=== PATIENT | male | born 1950 | race Caucasian/White ===

== ENCOUNTER 2019-03-21 01:56 | Inpatient (IN) | payer OTHER ==
[~2019-03-21] VITALS: Ht 165.1 cm; Wt 87.8 kg
[2019-03-21] VITALS (16 sets, daily range): BP systolic 120–147; BP diastolic 64–84; PULSE 50–61; RESP 8–21; Ht 165.1 cm; Wt 87.8 kg
[2019-03-21] MEDS ORDERED: AMIODARONE 150MG/D5W BOLUS IV* STA (02:00)
[2019-03-21] MEDS ORDERED: MAGNESIUM SULFATE 2 GM/50 ML 50 ML IVPB STA (02:00)
[2019-03-21] MEDS ORDERED: AMIODARONE 900 MG in DEXTROSE 5% 482 ML IV SCH (02:00)
[2019-03-21] MEDS ORDERED: ONDANSETRON 4 MG INJ ONE (02:02)
[2019-03-21] MEDS ORDERED: LORAZEPAM 2 MG INJ ONE (02:02)
--- NOTE | 2019-03-21 02:09 | ERD ---
ER Documentation Chief Complaint Chief Complaint HPI This is a 68-year-old male with a history of ICD placement, coronary disease, wh o presents for evaluation of multiple episodes of ventricular tachycardia, in the setting of having an ICD and receiving multiple shocks. The patient denies chest pain, he feels anxious from the shocks. History is limited secondary to the acuity of his condition. ROS All systems reviewed and are negative except as per history of present illness. Allergies Allergies: Coded Allergies: No Known Allergy (Unverified , 03/21/19) Physical Exam Vitals Vital Signs Date Temp Pulse Resp B/P (MAP) Pulse Ox O2 O2 Flow FiO2 Time Delivery Rate 03/21/19 59 15 115/76 99 Nasal 05:00 (89) Cannula 03/21/19 63 17 123/80 99 Nasal 04:30 (94) Cannula 03/21/19 97.2 69 20 122/71 99 Nasal 3.0 04:19 (88) Cannula 03/21/19 70 17 123/87 100 Nasal 03:30 (99) Cannula 03/21/19 78 21 144/80 98 Nasal 02:56 (101) Cannula 03/21/19 Nasal 3 02:15 Cannula 03/21/19 98.7 89 24 142/95 98 02:00 (111) Physical Exam Const: Patient is anxious appearing, appears stated age Head: Atraumatic Eyes: Normal Conjunctiva ENT: Normal External Ears, Nose and Mouth. Neck: Full range of motion. No meningismus. Resp: Clear to auscultation bilaterally Cardio: Regular rate and rhythm, no murmurs Abd: Soft, non tender, there is a large abdominal hernia, it is nontender. Normal bowel sounds Skin: No petechiae or rashes Back: No midline or flank tenderness Ext: No cyanosis, or edema Neur: Awake and alert Psych: Normal Mood and Affect Result Diagram: 03/21/19 0200 03/21/19 0200 Results 24 hrs Laboratory Tests Test 03/21/19 02:00 White Blood Count 11.8 10^3/ul Red Blood Count 5.07 10^6/ul Hemoglobin 15.3 g/dl Hematocrit 46.8 % Mean Corpuscular Volume 92.3 fl Mean Corpuscular Hemoglobin 30.2 pg Mean Corpuscular Hemoglobin Concent 32.7 g/dl Red Cell Distribution Width 13.2 % Platelet Count 202 10^3/UL Mean Platelet Volume 10.5 fl Immature Granulocytes % 0.300 % Neutrophils % 52.9 % Lymphocytes % 31.9 % Monocytes % 10.5 % Eosinophils % 3.5 % Basophils % 0.9 % Nucleated Red Blood Cells % 0.0 /100WBC Immature Granulocytes # 0.040 10^3/ul Neutrophils # 6.2 10^3/ul Lymphocytes # 3.8 10^3/ul Monocytes # 1.2 10^3/ul Eosinophils # 0.4 10^3/ul Basophils # 0.1 10^3/ul Nucleated Red Blood Cells # 0.0 10^3/ul Prothrombin Time 15.0 Sec Prothrombin Time Ratio 1.2 INR International Normalized Ratio 1.17 Activated Partial Thromboplast Time 28.3 Sec Sodium Level 140 mmol/L Potassium Level 3.6 mmol/L Chloride Level 105 mmol/L Carbon Dioxide Level 24 mmol/L Anion Gap 11 Blood Urea Nitrogen 25 mg/dl Creatinine 1.06 mg/dl Est Glomerular Filtrat Rate mL/min > 60 mL/min Glucose Level 182 mg/dl Calcium Level 8.8 mg/dl Magnesium Level 1.6 mg/dl Total Bilirubin 0.2 mg/dl Direct Bilirubin 0.00 mg/dl Indirect Bilirubin 0.2 mg/dl Aspartate Amino Transf (AST/SGOT) 42 IU/L Alanine Aminotransferase (ALT/SGPT) 45 IU/L Alkaline Phosphatase 73 IU/L Troponin I 1.780 ng/ml B-Type Natriuretic Peptide 1200 PG/ML Total Protein 6.5 g/dl Albumin 3.7 g/dl Globulin 2.80 g/dl Albumin/Globulin Ratio 1.32 Current Medications Medications Dose Sig/Mirela Start Time Status Last (Trade) Ordered Route PRN Stop Time Admin Dose Reason Admin Amiodarone 100 ml ONCE STAT 03/21/19 DC 03/21/19 HCl IV* 02:00 02:26 (Cordarone 03/21/19 02:03 150mg/ D5W Bolus) Magnesium 50 ml @ ONCE STAT 03/21/19 DC 03/21/19 Sulfate 600 mls/hr IVPB 02:00 02:27 03/21/19 02:04 Amiodarone 500 ml @ 0 Q0M IV 03/21/19 03/21/19 HCl 900 mls/hr 02:00 02:19 mg/Dextrose Lorazepam 0.5 mg ONCE ONCE 03/21/19 DC 03/21/19 (Ativan) IV 02:30 02:17 03/21/19 02:31 Aspirin 325 mg ONCE ONCE 03/21/19 DC 03/21/19 (Aspirin) PO 03:00 03:05 03/21/19 03:02 Heparin 250 ml @ ONCE STAT 03/21/19 03/21/19 Sodium 10 mls/hr IV 03:17 04:48 (Porcine) 03/22/19 04:16 1,000 ml @ [id number] IV 03/21/19 Dextrose/Sodi 75 mls/hr 04:02 um Chloride Ondansetron 4 mg Q6H PRN 03/21/19 HCl (Zofran IV NAUSEA 04:30 Inj) AND/OR VOMITING Albuterol/ 3 ml Q2H RESP 03/21/19 Ipratropium THERAPY PRN 04:30 (Duoneb) NEB SHORTNESS OF BREATH 650 mg Q4H PRN 03/21/19 Acetaminophen CA PAIN 04:30 (Tylenol LEVEL 1-3 OR Supp) FEVER 40 mg DAILY@06 03/21/19 Pantoprazole IV 06:00 (Protonix Iv) Procedures/MDM 68-year-old male presents for evaluation of multiple shocks by his ICD. He has no chest pain, reviewed his EKG, there is no evidence of acute ST elevation [place], patient was given a bolus of amiodarone, and will be started on amiodarone drip, also given magnesium sulfate. EKG: Rate/Rhythm: Normal Sinus Rhythm QRS, ST, T-waves: No changes consistent w/ acute ischemia Impression: No evidence of ischemia or arrhythmia\ 3 AM: Patient's troponin returned greater than 1, patient was chest pain-free, I suspect this most likely related to multiple shocks that he is received, I discussed the case with the [facility], gave authorization #[id number], for patient to stay at [facility]. Patient remained he medically stable, he will be admitted to the ICU, he was started on aspirin and heparin drip for an STEMI. Patient admitted to Dr. Lane Departure Diagnosis: Primary Impression: Ventricular tachycardia Additional Impression: Non-STEMI (non-ST elevated myocardial infarction) Condition: Stable DI MICHELE MD March 21, 2019 02:09
[2019-03-21] MEDS ORDERED: LORAZEPAM 2 MG INJ IV ONE (02:30)
[2019-03-21] MEDS ORDERED: ASPIRIN 325 MG TAB PO ONE (03:00)
[2019-03-21] MEDS ORDERED: DEXTROSE 5%-0.45% NACL 1,000 ML IV SCH (04:02)
[2019-03-21] MEDS ORDERED: ONDANSETRON 4 MG INJ IV PRN (04:30)
[2019-03-21] MEDS ORDERED: ACETAMINOPHEN 650 MG SUPP PR PRN (04:30)
[2019-03-21] MEDS ORDERED: ALBUTEROL/IPRATROPIUM (NEB) 3 ML AMP NEB PRN (04:30)
[2019-03-21] MEDS: HEPARIN 25000 UNITS/250 ML 250 ML IV STA ×2 (04:48→07:09)
[2019-03-21] MEDS ORDERED: PANTOPRAZOLE 40 MG INJ IV SCH (06:00)
--- NOTE | 2019-03-21 06:05 | HP ---
Date/Time of Note Date/Time of Note DATE: 03/21/19 TIME: 06:00 Assessment/Plan VTE Prophylaxis Pharmacological prophylaxis: heparin Lines/Catheters IV Catheter Type (from Nrsg): Saline Lock Assessment/Plan Assessment/Plan 1. Ventricular fibrillation, status post ICD firing -Patient was also found to be in V-fib with a rate of 250 in the field. Shocked to sinus rhythm -Status post amiodarone ER -Heparin drip, especially given positive troponin -ICU admission -Serial troponin -2D echo -Cardiology consult -ICD Interrogation 2. Positive troponin: NSTEMI vs secondary to above -Antiplatelet, heparin drip -Serial troponin, 2D echo and cardiology consult 3. History of CAD with CABG 4. History of colon cancer in 2008: No acute issue Result Diagram: 03/21/19 0200 03/21/19 0200 Results 24hrs Laboratory Tests Test 03/21/19 02:00 White Blood Count 11.8 H Red Blood Count 5.07 Hemoglobin 15.3 Hematocrit 46.8 Mean Corpuscular Volume 92.3 Mean Corpuscular Hemoglobin 30.2 Mean Corpuscular Hemoglobin Concent 32.7 Red Cell Distribution Width 13.2 Platelet Count 202 Mean Platelet Volume 10.5 H Immature Granulocytes % 0.300 Neutrophils % 52.9 Lymphocytes % 31.9 Monocytes % 10.5 Eosinophils % 3.5 Basophils % 0.9 Nucleated Red Blood Cells % 0.0 Immature Granulocytes # 0.040 H Neutrophils # 6.2 Lymphocytes # 3.8 H Monocytes # 1.2 H Eosinophils # 0.4 Basophils # 0.1 Nucleated Red Blood Cells # 0.0 Prothrombin Time 15.0 H Prothrombin Time Ratio 1.2 INR International Normalized Ratio 1.17 Activated Partial Thromboplast Time 28.3 Sodium Level 140 Potassium Level 3.6 Chloride Level 105 Carbon Dioxide Level 24 Anion Gap 11 Blood Urea Nitrogen 25 H Creatinine 1.06 Est Glomerular Filtrat Rate mL/min > 60 Glucose Level 182 Calcium Level 8.8 Magnesium Level 1.6 L Total Bilirubin 0.2 Direct Bilirubin 0.00 Indirect Bilirubin 0.2 Aspartate Amino Transf (AST/SGOT) 42 Alanine Aminotransferase (ALT/SGPT) 45 Alkaline Phosphatase 73 Troponin I 1.780 *H B-Type Natriuretic Peptide 1200 H Total Protein 6.5 Albumin 3.7 Globulin 2.80 Albumin/Globulin Ratio 1.32 HPI/ROS Admit Date/Time Admit Date/Time Hx of Present Illness This is a 68-year-old male with a history of hypertension, CAD with CABG, colon cancer in 2008 who was brought to the ER for V-fib and after his ICD fired multiple times. He reported waking up from sleep because of the shock. Reported that his ICD fired multiple times. When EMS arrived, he was found to be in V-fib with a rate of 250 status post shock to sinus with 65bpm. at bedside stated that his ICD fired last week and was interrogated at [facility] and was told "HR was high". No new meds added. requesting cardiac cath. ICD was placed in 2004 at time of CABG. No issue since until now. When he presented to ER, vitals were stable. He is found to have a troponin of almost 1.8. He was started on heparin drip and was also given amiodarone. Currently awaiting admission to ICU. PMH/Family/Social Past Medical History Medical History: other (see hpi) Medications Current Medications Amiodarone HCl 900 mg/Dextrose 500 ml @ 0 mls/hr Q0M IV Last administered on 03/21/19at 02:19; Admin Dose 33.3 MLS/HR; Start 03/21/19 at 02:00 Heparin Sodium (Porcine) 250 ml @ 10 mls/hr ONCE STAT IV Last administered on 03/21/19at 04:48; Admin Dose 10 MLS/HR; Start 03/21/19 at 03:17; Stop 03/22/19 at 04:16 Dextrose/Sodium Chloride 1,000 ml @ 75 mls/hr [id number] IV ; Start 03/21/19 at 04:02 Ondansetron HCl (Zofran Inj) 4 mg Q6H PRN IV NAUSEA AND/OR VOMITING; Start 03/21/19 at 04:30 Albuterol/ Ipratropium (Duoneb) 3 ml Q2H RESP THERAPY PRN NEB SHORTNESS OF BREATH; Start 03/21/19 at 04:30 Acetaminophen (Tylenol Supp) 650 mg Q4H PRN MA PAIN LEVEL 1-3 OR FEVER; Start 03/21/19 at 04:30 Pantoprazole (Protonix Iv) 40 mg DAILY@06 IV ; Start 03/21/19 at 06:00 Coded Allergies: No Known Allergy (Unverified , 03/21/19) Past Surgical History Past Surgical Hx: other (see hpi) Family History Significant Family History: no pertinent family hx Social History Alcohol Use: none Smoking Status: Current every day smoker Drug Use: none Exam/Review of Systems Vital Signs Vitals Vital Signs Date Temp Pulse Resp B/P (MAP) Pulse Ox O2 O2 Flow FiO2 Time Delivery Rate 03/21/19 59 15 115/76 99 Nasal 05:00 (89) Cannula 03/21/19 97.2 3.0 04:19 Exam Constitutional: alert, oriented, well developed Head: normocephalic, atraumatic Eyes: EOMI, PERRL Respiratory: clear to auscultation Cardiovascular: regular rate and rhythm Gastrointestinal: soft Extremities: normal pulses HALEY KEARNS MD March 21, 2019 06:05
[2019-03-21] MEDS ORDERED: BISO5TAB2 PO (06:30)
[2019-03-21] MEDS ORDERED: ATORVASTATIN 80 MG TAB PO ONE (06:30)
[2019-03-21] MEDS ORDERED: LISI-313 PO (06:31)
[2019-03-21] MEDS ORDERED: CYAN500T46 PO (06:31)
[2019-03-21] MEDS ORDERED: ASPI81TA52 PO (06:32)
[2019-03-21] MEDS ORDERED: NITR0.4T39 SL (06:32)
[2019-03-21] MEDS ORDERED: SIMV40TA2 PO (06:32)
[2019-03-21] MEDS ORDERED: HEPARIN 5,000 UNIT/1 ML VIAL IV SCH (07:00)
[2019-03-21] MEDS: ASPIRIN (EC) 81 MG TAB PO SCH (11:16)
[2019-03-21] MEDS ORDERED: CLOPIDOGREL 75 MG TAB PO ONE (13:30)
--- NOTE | 2019-03-21 13:38 | RADRPT ---
Echocardiogram Report Patient Name: WOODY JOHNSONatient ID: [id number] : 1950 (68y 4m)Study Date: 03/21/2019 11:42:47 AM Gender: MAccession #: [id number] Tech: Adarsh Morales [facility] Location: [address] Ref.Physician: HALEY KEARNS Height(Cm): BSA: Weight(Kg): Quality: AdequateAccount #: Procedures: Echocardiographic Report: Transthoracic echocardiogram with complete 2D, M-Mode, and doppler examination. Indications: NSTEMI, V-Fib. Measurements: 2D/M Mode Doppler Measurement Value Normal Range Measurement Value Normal Range LVIDd 2D 4.8 [ 4.2 - 5.8 ] cm AV Peak Nuno 1.1 [ 100.0 - 170.0 ] cm/sec LVIDs 2D 4.4 [ 2.5 - 4.0 ] cm AV Peak PG 5.0 [ 2.0 - 9.0 ] mmHg LVPWd 2D 1.0 [ 0.6 - 1.0 ] cm LVOT Peak Nuno 0.6 [ 70.0 - 110.0 ] cm/sec IVSd 2D 1.9 [ 0.6 - 1.0 ] cm LVOT Peak PG 2.0 [ 2.0 - 6.0 ] mmHg AoR Diam 2D 3.0 [ 2.6 - 3.4 ] cm MV E Peak Nuno 0.9 [ 60.0 - 130.0 ] cm/sec EDV 2D 110.0 [ 62.0 - 150.0 ] ml MV A Peak Nuno 0.4 [ 100.0 - 120.0 ] cm/sec ESV 2D 89.6 [ 21.0 - 61.0 ] ml MV E/A 2.5 [ 0.8 - 1.5 ] ratio EF 2D 18.5 [ 52.0 - 72.0 ] percent MV Decel Time 183 [ 104 - 258 ] msec LA Dimen 2D 4.8 [ 3.0 - 4.0 ] cm Lat E` Nuno 0.0 [ 10.0 - 15.0 ] cm/sec Lateral E/E` 23.0 [ 1.0 - 2.0 ] ratio MV E/A 2.5 [ 0.8 - 1.5 ] ratio TR Peak Nuno 2.6 [ 100.0 - 280.0 ] cm/sec TR Peak PG 27.0 mmHg RVSP 37.0 [ 10.0 - 36.0 ] mmHg Findings: Left Ventricle: Normal left ventricular cavity size. Sigmoid septum. Severe global left ventricular systolic dysfunction. Ejection fraction is visually estimated at 30 %. Tissue Doppler/Mitral Doppler indices are consistent with impaired relaxation (Stage I diastolic dysfunction). Right Ventricle: Normal right ventricular size. Normal right ventricular systolic function. Linear artifact in right ventricle suggestive of catheter, pacer lead, or ICD lead. Left Atrium: There is moderate enlargement of left atrium. Right Atrium: The right atrium is normal in size. Mitral Valve: Mild mitral leaflet calcification. Mild mitral annular calcification. Trace mitral regurgitation. Aortic Valve: Mild to moderate aortic stenosis. Aortic cusps appear mildly calcified. Tricuspid Valve: Normal appearance of the tricuspid valve. Estimated peak PA systolic pressure 37 mmHg. There is mild tricuspid regurgitation. Pericardium: Normal pericardium with no significant pericardial effusion. Aorta: Normal aortic root. IVC: Normal size and no respiratory collapse consistent with elevated right atrial pressure. Conclusions: Normal left ventricular cavity size. Sigmoid septum. Severe global left ventricular systolic dysfunction. Ejection fraction is visually estimated at 30 %. Tissue Doppler/Mitral Doppler indices are consistent with impaired relaxation (Stage I diastolic dysfunction). There is moderate enlargement of left atrium. Mild mitral leaflet calcification. Mild mitral annular calcification. Trace mitral regurgitation. Mild to moderate aortic stenosis. Aortic cusps appear mildly calcified. d. Normal appearance of the tricuspid valve. Estimated peak PA systolic pressure 37 mmHg. There is mild tricuspid regurgitation. Electronically Signed By: Kulwinder Rider 2019-03-21 13:38:29 PDT
[2019-03-21] MEDS ORDERED: IODIXANOL LOCM 100 ML BTL ONE (14:32)
[2019-03-21] MEDS ORDERED: LIDOCAINE 1% (MDV) 20 ML INJ ONE (14:32)
[2019-03-21] MEDS ORDERED: MIDAZOLAM 1 MG/ML 2 ML INJ ONE (14:32)
[2019-03-21] MEDS ORDERED: FENTAnyl 50 MCG/ML VIAL ONE (14:32)
--- NOTE | 2019-03-21 14:54 | CONS ---
Assessment/Plan Assessment/Plan Hospital Course (Demo Recall) Non-ST elevation myocardial infarction VT storm Coronary artery disease history of AL history of coronary bypass graft Ischemic cardiomyopathy History of hypertension Dyslipidemia Abnormal EKG due to above Recommendation: Patient has been started on heparin drip and amiodarone drip overnight. Currently has remained sinus rhythm. ICD was interrogated as above mentioned and personally reviewed. Aspirin will be given. Plavix will be given. Plan for emergent left heart catheterization selective coronary angiography percutaneous coronary intervention. [facility] was discussed with the patient and his in detail. Risks including but not limited to risk of infection vascular convocation bleeding, leakage AL stroke arrhythmia renal failure etc. discussed with. Patient and his in detail. Consent has been obtained. Continue with ICU care for now. Patient also will need ICD generator change prior to discharge home given the fact that he has had multiple ICD discharge for VT V. fib now at [facility] More than 45 minutes of critical care time was spent treatment management is critically ill patient excluding any procedures Thank you for this referral. We will continue to follow along with you ROSI MAZARIEGOS MD [facility] Consultation Date/Type/Reason Admit Date/Time Date of Consultation: March 21, 2019 Type of Consult Cardiology Reason for Consultation VT + TROP Requesting Provider: HALEY KEARNS MD Date/Time of Note DATE: 03/21/19 TIME: 14:48 Hx of Present Illness Interventional cardiology consultation note Chief complaint: Getting ICD discharge Reason for consult: ICD discharge V. fib, positive troponin History of present illness: Thank you for this referral. This is a pleasant 68-year-old gentleman with history of ischemic cardiomyopathy status post ICD placement and bypass surgery more than 10 years ago, who presented with multiple ICD discharge. 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 Patient last night had multiple episode of apparently discharged with ICD. He came he was noted to be episode of V. tach. Been placed on amiodarone drip troponin has been rising. He denies any chest pain or pressure to me. Denies any PND orthopnea to me at this point. ICD was interrogated personally reviewed patient. Showed multiple appropriate therapy last night antonina -12 08 including AT PT as well as shocks given appropriately. Currently ICD is actually at [facility] Allergies: No known drug allergies Medications were reviewed as per medical reconciliation sheet Family history: Father with coronary artery disease Social history: He is still smoking Past medical history: Coronary artery disease status post AL status post three-vessel bypass surgery about 14 years ago status post ICD ischemic cardiomyopathy congestive heart failure the hypertension dyslipidemia smoker VT as above Review of system: Patient denies all others except for above-mentioned Past Medical History Home Meds Reported Medications Aspirin (Low Dose Aspirin) 81 Mg Tablet.dr, 81 MG PO DAILY, #30 TAB 03/21/19 Simvastatin* (Zocor*) 40 Mg Tablet, 40 MG PO QHS, #30 TAB 03/21/19 Nitroglycerin* (Nitrostat*) 0.4 Mg Tab.subl, 0.4 MG SL Q5MIN PRN for CHEST PAIN, BOTTLE 03/21/19 Lisinopril* (Lisinopril*) 5 Mg Tablet, 5 MG PO BID, #30 TAB 03/21/19 Cyanocobalamin* (Vitamin B12*) 500 Mcg Tab, 2000 MCG PO DAILY, TAB 03/21/19 Bisoprolol Fumarate* (Zebeta*) 5 Mg Tablet, 5 MG PO BID, TAB 03/21/19 Medications Current Medications Amiodarone HCl 900 mg/Dextrose 500 ml @ 0 mls/hr Q0M IV Last administered on 03/21/19at 02:19; Admin Dose 33.3 MLS/HR; Start 03/21/19 at 02:00 Heparin Sodium (Porcine) 250 ml @ 10 mls/hr ONCE STAT IV Last administered on 03/21/19at 07:09; Admin Dose 10 MLS/HR; Start 03/21/19 at 03:17; Stop 03/22/19 at 04:16 Dextrose/Sodium Chloride 1,000 ml @ 75 mls/hr [id number] IV Last administered on 03/21/19at 09:50; Admin Dose 75 MLS/HR; Start 03/21/19 at 04:02 Ondansetron HCl (Zofran Inj) 4 mg Q6H PRN IV NAUSEA AND/OR VOMITING; Start 03/21/19 at 04:30 Albuterol/ Ipratropium (Duoneb) 3 ml Q2H RESP THERAPY PRN NEB SHORTNESS OF BREATH; Start 03/21/19 at 04:30 Acetaminophen (Tylenol Supp) 650 mg Q4H PRN MD PAIN LEVEL 1-3 OR FEVER; Start 03/21/19 at 04:30 Pantoprazole (Protonix Iv) 40 mg DAILY@06 IV Last administered on 03/21/19at 07:07; Admin Dose 40 MG; Start 03/21/19 at 06:00 Aspirin (Halfprin) 81 mg DAILY PO Last administered on 03/21/19at 11:16; Admin Dose 81 MG; Start 03/21/19 at 09:00 Atorvastatin Calcium (Lipitor) 40 mg QHS PO ; Start 03/22/19 at 21:00 Allergies: Coded Allergies: No Known Allergy (Unverified , 03/21/19) Past Surgical History Past Surgical Hx: other (see hpi) Social History Alcohol Use: none Smoking Status: Smoker,current status unk Drug Use: none Exam/Review of Systems Vital Signs Vitals Vital Signs Date Temp Pulse Resp B/P (MAP) Pulse Ox O2 O2 Flow FiO2 Time Delivery Rate 03/21/19 51 10 129/77 100 Nasal 13:00 (94) Cannula 03/21/19 98.7 12:00 03/21/19 2.0 09:17 Exam Exam General: no acute distress HEENT: NC/AT. pupils are equal. round. NECK: NO JVD. no stridor. CV: RRR. systolic murmur; no gallop or rubs. PULM: no wheezing or rhonchi. GI: SOFT, NT, ND, no rebound or guarding Extremity: trace B/L LE edema. no clubbing. neuro: awake and alert, OX3. Psych: calm and pleasant rectal: deferred : normal EKG shows normal sinus rhythm. Interventricular conduction delay inferior infarct EKG by paramedics showed ventricular tachycardia Echocardiogram was personally reviewed see my report Labs Result Diagram: 03/21/19 0200 03/21/19 0200 Results 24hrs Laboratory Tests Test 03/21/19 02:00 03/21/19 08:10 03/21/19 12:47 White Blood Count 11.8 H Red Blood Count 5.07 Hemoglobin 15.3 Hematocrit 46.8 Mean Corpuscular Volume 92.3 Mean Corpuscular Hemoglobin 30.2 Mean Corpuscular Hemoglobin Concent 32.7 Red Cell Distribution Width 13.2 Platelet Count 202 Mean Platelet Volume 10.5 H Immature Granulocytes % 0.300 Neutrophils % 52.9 Lymphocytes % 31.9 Monocytes % 10.5 Eosinophils % 3.5 Basophils % 0.9 Nucleated Red Blood Cells % 0.0 Immature Granulocytes # 0.040 H Neutrophils # 6.2 Lymphocytes # 3.8 H Monocytes # 1.2 H Eosinophils # 0.4 Basophils # 0.1 Nucleated Red Blood Cells # 0.0 Prothrombin Time 15.0 H Prothrombin Time Ratio 1.2 INR International Normalized Ratio 1.17 Activated Partial Thromboplast Time 28.3 80.2 *H Sodium Level 140 Potassium Level 3.6 Chloride Level 105 Carbon Dioxide Level 24 Anion Gap 11 Blood Urea Nitrogen 25 H Creatinine 1.06 Est Glomerular Filtrat Rate mL/min > 60 Glucose Level 182 Calcium Level 8.8 Magnesium Level 1.6 L Total Bilirubin 0.2 Direct Bilirubin 0.00 Indirect Bilirubin 0.2 Aspartate Amino Transf (AST/SGOT) 42 Alanine Aminotransferase (ALT/SGPT) 45 Alkaline Phosphatase 73 Troponin I 1.780 *H 19.800 *H 22.700 *H B-Type Natriuretic Peptide 1200 H Total Protein 6.5 Albumin 3.7 Globulin 2.80 Albumin/Globulin Ratio 1.32 Creatine Kinase 1337 H 2107 #H Creatine Kinase Index 6.1 3.0 Creatinine Kinase MB (Mass) 80.90 H 63.00 H Medications Medications Current Medications Amiodarone HCl 900 mg/Dextrose 500 ml @ 0 mls/hr Q0M IV Last administered on 03/21/19at 02:19; Admin Dose 33.3 MLS/HR; Start 03/21/19 at 02:00 Heparin Sodium (Porcine) 250 ml @ 10 mls/hr ONCE STAT IV Last administered on 03/21/19at 07:09; Admin Dose 10 MLS/HR; Start 03/21/19 at 03:17; Stop 03/22/19 at 04:16 Dextrose/Sodium Chloride 1,000 ml @ 75 mls/hr [id number] IV Last administered on 03/21/19at 09:50; Admin Dose 75 MLS/HR; Start 03/21/19 at 04:02 Ondansetron HCl (Zofran Inj) 4 mg Q6H PRN IV NAUSEA AND/OR VOMITING; Start 03/21/19 at 04:30 Albuterol/ Ipratropium (Duoneb) 3 ml Q2H RESP THERAPY PRN NEB SHORTNESS OF BREATH; Start 03/21/19 at 04:30 Acetaminophen (Tylenol Supp) 650 mg Q4H PRN MD PAIN LEVEL 1-3 OR FEVER; Start 03/21/19 at 04:30 Pantoprazole (Protonix Iv) 40 mg DAILY@06 IV Last administered on 03/21/19at 07:07; Admin Dose 40 MG; Start 03/21/19 at 06:00 Aspirin (Halfprin) 81 mg DAILY PO Last administered on 03/21/19at 11:16; Admin Dose 81 MG; Start 03/21/19 at 09:00 Atorvastatin Calcium (Lipitor) 40 mg QHS PO ; Start 03/22/19 at 21:00 ROSI MAZARIEGOS MD March 21, 2019 14:54
--- NOTE | 2019-03-21 14:58 | PN ---
Date/Time of Note Date/Time of Note DATE: 03/21/19 TIME: 14:58 Assessment/Plan VTE Prophylaxis Risk score (from Ns)>0 risk: 6 SCD applied (from Ns): Yes Pharmacological prophylaxis: heparin Lines/Catheters IV Catheter Type (from Nrs): Peripheral IV Urinary Cath still in place: No Assessment/Plan Hospital Course Subjective: no chest pain Constitutional: alert, oriented, well developed Head: normocephalic, atraumatic Eyes: EOMI, PERRL Respiratory: clear to auscultation Cardiovascular: regular rate and rhythm Gastrointestinal: soft Extremities: normal pulses assessment and plan: Non-ST elevation myocardial infarction VT storm Coronary artery disease history of [place] history of coronary bypass graft Ischemic cardiomyopathy History of hypertension Dyslipidemia Abnormal EKG due to above History of colon cancer 2008 Plan: -Patient has been started on heparin drip and amiodarone drip overnight. C urrently has remained sinus rhythm. ICD was interrogated, cardiology to review -Planned for emergent left heart catheterization selective coronary angiography percutaneous coronary intervention. -resume home meds -Continue ICU monitoring and supportive care -Further interventions per clinical course and medical cost consultant recommendations Result Diagram: 03/21/19 0200 03/21/19 0200 Results 24hrs Laboratory Tests Test 03/21/19 02:00 03/21/19 08:10 03/21/19 12:47 White Blood Count 11.8 H Red Blood Count 5.07 Hemoglobin 15.3 Hematocrit 46.8 Mean Corpuscular Volume 92.3 Mean Corpuscular Hemoglobin 30.2 Mean Corpuscular Hemoglobin Concent 32.7 Red Cell Distribution Width 13.2 Platelet Count 202 Mean Platelet Volume 10.5 H Immature Granulocytes % 0.300 Neutrophils % 52.9 Lymphocytes % 31.9 Monocytes % 10.5 Eosinophils % 3.5 Basophils % 0.9 Nucleated Red Blood Cells % 0.0 Immature Granulocytes # 0.040 H Neutrophils # 6.2 Lymphocytes # 3.8 H Monocytes # 1.2 H Eosinophils # 0.4 Basophils # 0.1 Nucleated Red Blood Cells # 0.0 Prothrombin Time 15.0 H Prothrombin Time Ratio 1.2 INR International Normalized Ratio 1.17 Activated Partial Thromboplast Time 28.3 80.2 *H Sodium Level 140 Potassium Level 3.6 Chloride Level 105 Carbon Dioxide Level 24 Anion Gap 11 Blood Urea Nitrogen 25 H Creatinine 1.06 Est Glomerular Filtrat Rate mL/min > 60 Glucose Level 182 Calcium Level 8.8 Magnesium Level 1.6 L Total Bilirubin 0.2 Direct Bilirubin 0.00 Indirect Bilirubin 0.2 Aspartate Amino Transf (AST/SGOT) 42 Alanine Aminotransferase (ALT/SGPT) 45 Alkaline Phosphatase 73 Troponin I 1.780 *H 19.800 *H 22.700 *H B-Type Natriuretic Peptide 1200 H Total Protein 6.5 Albumin 3.7 Globulin 2.80 Albumin/Globulin Ratio 1.32 Creatine Kinase 1337 H 2107 #H Creatine Kinase Index 6.1 3.0 Creatinine Kinase MB (Mass) 80.90 H 63.00 H Exam/Review of Systems Exam Vitals Vital Signs Date Temp Pulse Resp B/P (MAP) Pulse Ox O2 O2 Flow FiO2 Time Delivery Rate 03/21/19 51 10 129/77 100 Nasal 13:00 (94) Cannula 03/21/19 98.7 12:00 03/21/19 2.0 09:17 Results Results 24hrs Laboratory Tests Test 03/21/19 02:00 03/21/19 08:10 03/21/19 12:47 White Blood Count 11.8 H Red Blood Count 5.07 Hemoglobin 15.3 Hematocrit 46.8 Mean Corpuscular Volume 92.3 Mean Corpuscular Hemoglobin 30.2 Mean Corpuscular Hemoglobin Concent 32.7 Red Cell Distribution Width 13.2 Platelet Count 202 Mean Platelet Volume 10.5 H Immature Granulocytes % 0.300 Neutrophils % 52.9 Lymphocytes % 31.9 Monocytes % 10.5 Eosinophils % 3.5 Basophils % 0.9 Nucleated Red Blood Cells % 0.0 Immature Granulocytes # 0.040 H Neutrophils # 6.2 Lymphocytes # 3.8 H Monocytes # 1.2 H Eosinophils # 0.4 Basophils # 0.1 Nucleated Red Blood Cells # 0.0 Prothrombin Time 15.0 H Prothrombin Time Ratio 1.2 INR International Normalized Ratio 1.17 Activated Partial Thromboplast Time 28.3 80.2 *H Sodium Level 140 Potassium Level 3.6 Chloride Level 105 Carbon Dioxide Level 24 Anion Gap 11 Blood Urea Nitrogen 25 H Creatinine 1.06 Est Glomerular Filtrat Rate mL/min > 60 Glucose Level 182 Calcium Level 8.8 Magnesium Level 1.6 L Total Bilirubin 0.2 Direct Bilirubin 0.00 Indirect Bilirubin 0.2 Aspartate Amino Transf (AST/SGOT) 42 Alanine Aminotransferase (ALT/SGPT) 45 Alkaline Phosphatase 73 Troponin I 1.780 *H 19.800 *H 22.700 *H B-Type Natriuretic Peptide 1200 H Total Protein 6.5 Albumin 3.7 Globulin 2.80 Albumin/Globulin Ratio 1.32 Creatine Kinase 1337 H 2107 #H Creatine Kinase Index 6.1 3.0 Creatinine Kinase MB (Mass) 80.90 H 63.00 H Medications Medication Current Medications Amiodarone HCl 900 mg/Dextrose 500 ml @ 0 mls/hr Q0M IV Last administered on 03/21/19at 02:19; Admin Dose 33.3 MLS/HR; Start 03/21/19 at 02:00 Heparin Sodium (Porcine) 250 ml @ 10 mls/hr ONCE STAT IV Last administered on 03/21/19at 07:09; Admin Dose 10 MLS/HR; Start 03/21/19 at 03:17; Stop 03/22/19 at 04:16 Dextrose/Sodium Chloride 1,000 ml @ 75 mls/hr [id number] IV Last administered on 03/21/19at 09:50; Admin Dose 75 MLS/HR; Start 03/21/19 at 04:02 Ondansetron HCl (Zofran Inj) 4 mg Q6H PRN IV NAUSEA AND/OR VOMITING; Start 03/21/19 at 04:30 Albuterol/ Ipratropium (Duoneb) 3 ml Q2H RESP THERAPY PRN NEB SHORTNESS OF BREATH; Start 03/21/19 at 04:30 Acetaminophen (Tylenol Supp) 650 mg Q4H PRN SC PAIN LEVEL 1-3 OR FEVER; Start 03/21/19 at 04:30 Pantoprazole (Protonix Iv) 40 mg DAILY@06 IV Last administered on 03/21/19at 07:07; Admin Dose 40 MG; Start 03/21/19 at 06:00 Aspirin (Halfprin) 81 mg DAILY PO Last administered on 03/21/19at 11:16; Admin Dose 81 MG; Start 03/21/19 at 09:00 Atorvastatin Calcium (Lipitor) 40 mg QHS PO ; Start 03/22/19 at 21:00 SOUMYA CROWDER March 21, 2019 14:58
[2019-03-21] MEDS ORDERED: SOD CHLORIDE 0.9% 500 ML ONE (16:10)
[2019-03-21] MEDS ORDERED: CLOPIDOGREL 300 MG TAB ONE (16:11)
[2019-03-21] MEDS ORDERED: BIVALIRUDIN 250MG /NS 50 ML 100 ML IVPB ONE (16:11)
[2019-03-21] MEDS ORDERED: SOD CHLORIDE 0.9% 1,000 ML IV SCH (16:16)
[2019-03-21] MEDS ORDERED: IOHEXOL 350MG/ML 50 ML BTL ONE (16:26)
--- NOTE | 2019-03-21 16:30 | OPR ---
Date/Time of Note Date/Time of Note DATE: 03/21/19 TIME: 16:18 Operative Report Procedure Date: March 21, 2019 Preoperative Diagnosis Non-ST elevation myocardial infarction, V. tach Postoperative Diagnosis Coronary artery disease Operation/Procedure Performed PCI of the right coronary artery Surgeon see signature line Weatherization Coordinator Tae Anesthesia Type: moderate sedation Estimated Blood Loss: minimal Transfusion none Specimen None Grafts/Implants none Complications none Procedure Description Manager Data Warehousing: Rosi Rider MD Indication: 68-year-old gentleman history of coronary artery disease status post bypass surgery about 14 years ago presented with VT storm as well as non-ST elevation myocardial infarction Procure performed: #1 left heart catheterization and selective right and left coronary angiogram #2 Right femoral angiogram and closure using a Perclose device 3. Successful PTCA and stenting of proximal right coronary artery using a 5 x 18 mm integrity drug-eluting stent 4. Selective graft and left internal mammary artery angiography 5. Moderate sedation for more than 75 minutes Findings: 1. Left main: is large with 50% ostial stenosis. 2. LAD: has 50% ostial stenosis and 100% % stenosis at mid LAD. Diagonal is a moderate-sized vessel with about 70% ostial and 80% proximal stenosis CHAVES to LAD is widely patent 3. Left circumflex artery: is large but nondominant. it has 60 % stenosis at the site of where OM1 should be. OM1 itself is 100% occluded Saphenous vein graft to the obtuse marginal is widely patent 4. RCA: is very large, aneurysmal dominant. it has 80% ulcerated plaque proximally after successful PCI of this lesion no significant residual stenosis left Saphenous vein graft to most likely right coronary artery is occluded 5. LV: 109/22 Aortic pressure by pull back: 110/45 Procedure in detail: Written informed consent with obtained after risks benefits and alternatives discussed with the patient in detail. risks including but not limited to risk of infection vascular complications, bleeding complications, [place] stroke arrhythmi a renal failure at even were discussed with the patient in detail. Patient was brought into the cardiac labor and delivery nurse and placed in supine position. Right and left groin area was prepped and draped in regular sterile fashion and then he was in anesthetized using 1% lidocaine. Right femoral artery was cannulated and using modified seldinger technique a 5 F sheath was placed. Femoral angiogram was performed. it was then changed to a 6 F sheath JL4 guiding catheter was advanced to engage the left main coronary artery angiographic view was obtained. JR4 catheter was advanced and engaged into the right coronary artery and angiographic view was obtained. Then a [] was advanced to engage the left ventricle hemodynamics as recorded by pullback aortic pressure was measured. And the JR4 catheter was advanced and engaged into the saphenous vein graft and angiographic view was obtained . JR4 cath was advanced to engage the left internal mammary artery. It was exchanged over the wire to a CHAVES catheter whic h was advanced and engaged selectively into the left internal mammary artery angiography was obtained. At this time we decided to perform PCI of the RCA. A JR4 guiding catheter was advanced to engage the coronary artery. BMW wire was used and advanced across the lesion and placed distal to the lesion. I used a 3.5 followed by 4 followed by 6 oh balloon which was placed across the lesion and predilated the vessel. Then I used the biggest thing that we had available which was a 5 oh by 18 mm drug-eluting stent which was placed across the lesion and deployed at 18 Yakov. Finally a 6 x 15 mm noncompliant balloon was used and postdilated the stent and up to 18 Yakov. Final angiographic view was obtained which showed AKI-3 flow no evidence of dissection and no significant residual stenosis at the site of the stent. perclose was successfully deployed. Patient tolerated the procedure well with no complication. Patient was transferred to ICU in stable condition. contrast used: 115 cc Visipaque Conclusions: Successful PTCA stenting of the right coronary artery from 80% ulcerated plaque/stenosis to no significant residual stenosis using a 5 x 18 mm drug-eluting stent. Recommendations: Aggressive medical therapy. aspirin indefinitely dual antiplatlet therapy with aspirin and Plavix for at least the next 1 year ICU care overnight. ICD generator change tomorrow ROSI RIDER MD [facility] ROSI RIDER MD March 21, 2019 16:30
[2019-03-21] MEDS ORDERED: AL HYDROX/MG HYDROX/SIMETH 30 ML CUP PO PRN (23:30)
[2019-03-22] VITALS (28 sets, daily range): BP systolic 76–159; BP diastolic 41–88; PULSE 51–147; RESP 15–28
--- NOTE | 2019-03-22 08:30 | CONS ---
Consult Date/Type/Reason Admit Date/Time March 21, 2019 at 04:05 Initial Consult Date 03/21/19 Type of Consultation: cv Requesting Provider: HALEY KEARNS MD Date/Time of Note DATE: 03/22/19 TIME: 08:22 Subjective Interventional cardiology follow-up progress note/critical care note Subjective: Discussed with the staff. Telemetry was reviewed. Discussed with patient in detail. Multiple questions answered. Patient with no chest pain or pressure no palpitation. No more ICD discharge. Status post PCI of ulcerated plaque of the right coronary artery on 04/07/2019. No groin pain no bleeding noted. Patient has been intermittently confused but much better now. According to the 5 over the past few months she has noted that he has been forgetful Objective: General: no acute distress HEENT: NC/AT. pupils are equal. round. NECK: NO JVD. no stridor. CV: RRR. systolic murmur; no gallop or rubs. Chest: Status post ICD in the left side PULM: no wheezing or rhonchi. GI: SOFT, NT, ND, no rebound or guarding Extremity: trace B/L LE edema. no clubbing. neuro: awake and alert, O Psych: calm and pleasant rectal: deferred : normal EKG shows normal sinus rhythm. Interventricular conduction delay inferior infarct EKG by paramedics showed ventricular tachycardia Echocardiogram was personally reviewed Normal left ventricular cavity size. Sigmoid septum. Severe global left ventricular systolic dysfunction. Ejection fraction is visually estimated at 30 %. Tissue Doppler/Mitral Doppler indices are consistent with impaired relaxation (Stage I diastolic dysfunction). There is moderate enlargement of left atrium. Mild mitral leaflet calcification. Mild mitral annular calcification. Trace mitral regurgitation. Mild to moderate aortic stenosis. Aortic cusps appear mildly calcified. d. Normal appearance of the tricuspid valve. Estimated peak PA systolic pressure 37 mmHg. There is mild tricuspid regurgitation. Objective Vitals Vital Signs Date Temp Pulse Resp B/P (MAP) Pulse Ox O2 O2 Flow FiO2 Time Delivery Rate 03/22/19 52 18 135/88 95 Nasal 2.0 07:00 (104) Cannula 03/22/19 98.0 04:00 Intake and Output 03/21/19 03/21/19 03/22/19 1515:00 23:00 07:00 IntakeIntake Total 383.2 ml 690 ml 585 ml OutputOutput Total 300 ml 750 ml 325 ml BalanceBalance 83.2 ml -60 ml 260 ml Results/Medications Result Diagram: 03/22/19 0559 03/22/19 0559 Results 24 hrs Laboratory Tests Test 03/21/19 12:47 03/21/19 19:29 03/22/19 05:59 Activated Partial Thromboplast Time 80.2 *H 49.6 H Creatine Kinase 2107 #H 1436 H Creatine Kinase Index 3.0 1.1 Creatinine Kinase MB (Mass) 63.00 H 15.60 H Troponin I 22.700 *H 7.940 *H White Blood Count 11.7 H Red Blood Count 4.82 Hemoglobin 14.6 Hematocrit 44.0 Mean Corpuscular Volume 91.3 Mean Corpuscular Hemoglobin 30.3 Mean Corpuscular Hemoglobin Concent 33.2 Red Cell Distribution Width 13.2 Platelet Count 150 # Mean Platelet Volume 10.9 H Immature Granulocytes % 0.300 Neutrophils % 76.3 Lymphocytes % 12.3 L Monocytes % 9.5 Eosinophils % 1.1 Basophils % 0.5 Nucleated Red Blood Cells % 0.0 Immature Granulocytes # 0.040 H Neutrophils # 9.0 H Lymphocytes # 1.4 Monocytes # 1.1 H Eosinophils # 0.1 Basophils # 0.1 Nucleated Red Blood Cells # 0.0 Prothrombin Time 14.6 Prothrombin Time Ratio 1.1 INR International Normalized Ratio 1.13 Sodium Level 140 Potassium Level 4.1 Chloride Level 110 Carbon Dioxide Level 22 Anion Gap 8 Blood Urea Nitrogen 14 # Creatinine 0.78 Est Glomerular Filtrat Rate mL/min > 60 Glucose Level 114 # Calcium Level 8.8 Magnesium Level 2.1 Total Bilirubin 0.8 Direct Bilirubin 0.00 Indirect Bilirubin 0.8 Aspartate Amino Transf (AST/SGOT) 77 #H Alanine Aminotransferase (ALT/SGPT) 44 Alkaline Phosphatase 53 B-Type Natriuretic Peptide 2350 H Total Protein 5.9 L Albumin 3.4 Globulin 2.50 Albumin/Globulin Ratio 1.36 Thyroid Stimulating Hormone (TSH) 1.810 Home Meds Reported Medications Aspirin (Low Dose Aspirin) 81 Mg Tablet.dr, 81 MG PO DAILY, #30 TAB 03/21/19 Simvastatin* (Zocor*) 40 Mg Tablet, 40 MG PO QHS, #30 TAB 03/21/19 Nitroglycerin* (Nitrostat*) 0.4 Mg Tab.subl, 0.4 MG SL Q5MIN PRN for CHEST PAIN, BOTTLE 03/21/19 Lisinopril* (Lisinopril*) 5 Mg Tablet, 5 MG PO BID, #30 TAB 03/21/19 Cyanocobalamin* (Vitamin B12*) 500 Mcg Tab, 2000 MCG PO DAILY, TAB 03/21/19 Bisoprolol Fumarate* (Zebeta*) 5 Mg Tablet, 5 MG PO BID, TAB 03/21/19 Medications Current Medications Ondansetron HCl (Zofran Inj) 4 mg Q6H PRN IV NAUSEA AND/OR VOMITING; Start 03/21/19 at 04:30 Albuterol/ Ipratropium (Duoneb) 3 ml Q2H RESP THERAPY PRN NEB SHORTNESS OF BREATH; Start 03/21/19 at 04:30 Acetaminophen (Tylenol Supp) 650 mg Q4H PRN [place] PAIN LEVEL 1-3 OR FEVER; Start 03/21/19 at 04:30 Aspirin (Halfprin) 81 mg DAILY PO Last administered on 03/21/19at 11:16; Admin Dose 81 MG; Start 03/21/19 at 09:00 Atorvastatin Calcium (Lipitor) 40 mg QHS PO ; Start 03/22/19 at 21:00 Miscellaneous Information (* Miscellaneous Pharmacy Order) Hold all Metformin ... ONCE XX ; Start 03/21/19 at 16:30; Stop 03/23/19 at 16:29 Clopidogrel Bisulfate (plaVIX) 75 mg DAILY PO ; Start 03/22/19 at 09:00 Al Hydrox/Mg Hydrox/Simethicone (Mag-Al Plus) 30 ml Q6H PRN PO GASTROINTESTINAL UPSET Last administered on 03/21/19at 23:27; Admin Dose 30 ML; Start 03/21/19 at 23:30 Famotidine (Pepcid Iv) 20 mg BID IV ; Start 03/22/19 at 09:00 Assessment/Plan Hospital Course (Demo Recall) Non-ST elevation myocardial infarction: Status post PCI of the right coronary artery March 21, 2019 VT storm Coronary artery disease history of [place] history of coronary bypass graft Ischemic cardiomyopathy History of hypertension Dyslipidemia Abnormal EKG due to above CHF: Second systolic heart failure chronic and stable at this point Recommendation: Continue with aspirin and Plavix Coreg lisinopril statin has been added Diuretics as needed. Currently does not appear to be fluid overloaded though Plan for ICD Gen today given concern about patient VT storm and ICD currently at RENETTA. Risks benefits alternative ICD generator change defibrillator threshold testing was discussed with the patient and his in detail. Risks including but not limited to risk of infection bleeding complication NV stroke arrhythmia anesthesiology complication etc. discussed with the patient in detail. Consent has been obtained Continue with ICU care for now until at least ICD GEN change is done. More than 35 minutes of critical care time was for management treatment is critically ill patient excluding procedures Thank you for this referral. We will continue to follow along with you ROSI MAZARIEGOS MD [facility] ROSI MAZARIEGOS MD March 22, 2019 08:29
--- NOTE | 2019-03-22 11:33 | PREAC ---
Date/Time of Note Date/Time of Note DATE: 03/22/19 TIME: 11:31 Anesthesia Eval and Record Evaluation Time Pre-Procedure Interview DATE: 03/22/19 TIME: 11:31 Age 68 Sex male NPO: 8 hrs Preoperative diagnosis ICD Malfunction Planned procedure ICD Replacement Past Medical History Past Medical History: Includes Cardio: HTN, Dyslipidemia, ND, CAD, CABG, PTCA/Stent, PPM/AICD, CHF (EF 30%) Surgery & Anesthesia Issues No known issue Meds Anticoagulation: Yes (ASA) Beta Rosmery within 24 hr: No Reason Beta Rosmery not given: Pt. not on B-Rosmery Reported Medications Aspirin (Low Dose Aspirin) 81 Mg Tablet.dr, 81 MG PO DAILY, #30 TAB 03/21/19 Simvastatin* (Zocor*) 40 Mg Tablet, 40 MG PO QHS, #30 TAB 03/21/19 Nitroglycerin* (Nitrostat*) 0.4 Mg Tab.subl, 0.4 MG SL Q5MIN PRN for CHEST PAIN, BOTTLE 03/21/19 Lisinopril* (Lisinopril*) 5 Mg Tablet, 5 MG PO BID, #30 TAB 03/21/19 Cyanocobalamin* (Vitamin B12*) 500 Mcg Tab, 2000 MCG PO DAILY, TAB 03/21/19 Bisoprolol Fumarate* (Zebeta*) 5 Mg Tablet, 5 MG PO BID, TAB 03/21/19 Current Medications Ondansetron HCl (Zofran Inj) 4 mg Q6H PRN IV NAUSEA AND/OR VOMITING; Start 03/21/19 at 04:30 Albuterol/ Ipratropium (Duoneb) 3 ml Q2H RESP THERAPY PRN NEB SHORTNESS OF BREATH; Start 03/21/19 at 04:30 Acetaminophen (Tylenol Supp) 650 mg Q4H PRN OR PAIN LEVEL 1-3 OR FEVER; Start 03/21/19 at 04:30 Aspirin (Halfprin) 81 mg DAILY PO Last administered on 03/21/19at 11:16; Admin Dose 81 MG; Start 03/21/19 at 09:00 Atorvastatin Calcium (Lipitor) 40 mg QHS PO ; Start 03/22/19 at 21:00 Miscellaneous Information (* Miscellaneous Pharmacy Order) Hold all Metformin ... ONCE XX ; Start 03/21/19 at 16:30; Stop 03/23/19 at 16:29 Clopidogrel Bisulfate (plaVIX) 75 mg DAILY PO ; Start 03/22/19 at 09:00 Al Hydrox/Mg Hydrox/Simethicone (Mag-Al Plus) 30 ml Q6H PRN PO GASTROINTESTINAL UPSET Last administered on 03/21/19at 23:27; Admin Dose 30 ML; Start 03/21/19 at 23:30 Famotidine (Pepcid Iv) 20 mg BID IV ; Start 03/22/19 at 09:00 Carvedilol (Coreg) 3.125 mg BID PO ; Start 03/22/19 at 09:00 Lisinopril (Zestril) 5 mg DAILY PO ; Start 03/22/19 at 09:00 Meds reviewed: Yes Allergies Coded Allergies: No Known Allergy (Unverified , 03/21/19) Allergies Reviewed: Yes Labs/Studies Labs Reviewed: Reviewed by anesthesiologist Result Diagram: 03/22/19 0559 03/22/19 0559 Laboratory Tests 03/22/19 05:59 test: N/A Studies: ECG (Sr 1 degree AVB), 2D Echo (LVEF 30%, Mild-Mod , PA 37) Pre-procedure Exam Last vitals Vital Signs Date Temp Pulse Resp B/P (MAP) Pulse Ox O2 O2 Flow FiO2 Time Delivery Rate 03/22/19 57 08:00 03/22/19 18 135/88 95 Nasal 2.0 07:00 (104) Cannula 03/22/19 98.0 04:00 Airway: Adequate mouth opening, Adequate thyromental dist Mallampati: Mallampati III Teeth: Normal Lung: Normal Heart: Abnormal (systolic murmur) ASA Physical Status ASA physical status: 3 Emergency: None Planned Anesthetic General/MAC: MAC Pre-operative Attestations Prior to commencing anesthesia and surgery, the patient was re-evaluated, there was verification of: *The patient's identity *The results of appropriate recent lab work and preoperative vital signs *The above evaluation not changing prior to induction *Anesthetic plan, risk benefits, alternative and complications discussed with patient/family; questions answered; patient/family understands, accepts and wishes to proceed. COLLEEN LEMUS CRNA March 22, 2019 11:33
[2019-03-22] MEDS ORDERED: POLYMYXIN/BACITRACIN 1L IRRIG ONE (11:39)
[2019-03-22] MEDS ORDERED: MIDAZOLAM 1 MG/ML 2 ML INJ ONE (11:43)
[2019-03-22] MEDS ORDERED: PROPOFOL 20 ML ONE (11:44)
[2019-03-22] MEDS ORDERED: FENTAnyl 50 MCG/ML VIAL ONE (11:44)
[2019-03-22] MEDS ORDERED: PHENYLephrine (100 MCG/ML) 10ML SYG ONE (11:45)
[2019-03-22] MEDS ORDERED: LIDOCAINE 1%/EPI (1:100,000) (MDV) 20 ML ONE (11:50)
[2019-03-22] MEDS ORDERED: POLYMYXIN/BACITRACIN 1L IRRIG IRR SCH (12:00)
[2019-03-22] MEDS ORDERED: CEFAZOLIN 2 GM/50 ML (PMX) 50 ML IVPB SCH (12:00)
--- NOTE | 2019-03-22 13:01 | OPR ---
Date/Time of Note Date/Time of Note DATE: 03/22/19 TIME: 12:57 Operative Report Procedure Date: March 22, 2019 Preoperative Diagnosis VT storm. ICD RENETTA Postoperative Diagnosis same Operation/Procedure Performed ICD Generator change. 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 Patient is stabilized and had a PCI but was noted to have ICD at RENETTA. It was recommended to undergo ICD GEN change. He has also received amiodarone and it was felt to tested for the defibrillator threshold testing as well Anesthesia: By anesthesiologist Cosmetology Educator: Rosi Rider MD Procedure in detail: Written informed consent was obtained after risks benefits and alternatives discussed with the patient and family in detail. Risks including but not limited to risk of infection, bleeding anesthesia related complications, NV, CVA, etc discussed with pt in detail. Patient was brought into into the Retirement Plan Counselor and placed in supine position. sedation was given. Left chest area was prepped and draped in regular sterile fashion. Left chest area, over the previous device was anesthetized using 1% lidocaine with epi. A 3 cm incision was made over the previous pacemaker. Blunt dissection was carried out. ICD was isolated and removed from the pocket. The leads were disconnected and interrogated which showed normal function of the leads. Then the leads were connected into the new device. The device was placed in the pocket. Pocket was irrigated antibiotic solution. Pocket was closed with 2 layers of 3. 0 Vicryl sutures. Steri-Strip was applied. Pressure dressing was applied. Prior to closing the wound completely defibrillator threshold testing was done. First external defibrillator was tested at 1 Anthony. Then patient was induced int o ventricular fibrillation. The device appropriately detected and rescue team at 28 J. Patient tolerated the procedure well with no complication. Please see physical chart for details regarding ICD information and thresholds. ROSI RIDER MD March 22, 2019 13:01
--- NOTE | 2019-03-22 13:02 | PAC ---
Date/Time of Note Date/Time of Note DATE: 03/22/19 TIME: 13:01 Post-Anesthesia Notes Post-Anesthesia Note Last documented vital signs Vital Signs Date Temp Pulse Resp B/P (MAP) Pulse Ox O2 O2 Flow FiO2 Time Delivery Rate 03/22/19 57 08:00 03/22/19 18 135/88 95 Nasal 2.0 07:00 (104) Cannula 03/22/19 98.0 04:00 HR 80, 130/88, 95%, RR 12, Temp 97.0 Activity: WNL Respiratory function: WNL Cardiovascular function: WNL Mental status: Baseline Pain reasonably controlled: Yes Hydration appropriate: Yes Nausea/Vomiting absent: Yes COLLEEN LEMUS CRNA March 22, 2019 13:02
[2019-03-22] MEDS: CLOPIDOGREL 75 MG TAB PO SCH (13:08)
[2019-03-22] MEDS: ASPIRIN (EC) 81 MG TAB PO SCH (13:08)
[2019-03-22] MEDS: FAMOTIDINE 20 MG INJ IV SCH ×2 (13:09→20:34)
[2019-03-22] MEDS: LISINOPRIL 5 MG TAB PO SCH (13:11)
[2019-03-22] MEDS ORDERED: morphine 2 MG INJ IV PRN (13:30)
[2019-03-22] MEDS ORDERED: LORAZEPAM 2 MG INJ IV ONE (19:00)
[2019-03-22] MEDS: CEFAZOLIN 1 GM/50 ML (PMX) 50 ML IVPB SCH (20:00)
--- NOTE | 2019-03-22 20:20 | RADRPT ---
Vent Rate: 64 bpm RR Interval: 944 msec SD Interval: 202 msec QRS Duration: 113 msec QT Interval: 444 msec QTC Interval: 457 msec P-R-T [place]: 60 - 13 - 163 degrees Sinus rhythm...normal P axis, V-rate 50- 99 Incomplete LBBB Abnormal T, consider ischemia, lateral leads...T <-0.20mV, I aVL V5 V6 Electronically Signed By: Leroy Awan
--- NOTE | 2019-03-22 20:23 | RADRPT ---
Vent Rate: 58 bpm RR Interval: 1032 msec GA Interval: 211 msec QRS Duration: 114 msec QT Interval: 471 msec QTC Interval: 464 msec P-R-T [place]: 92 - 31 - 178 degrees Sinus arrhythmia...V-rate 49- 64, variation>10% Abnormal T, consider ischemia, diffuse leads...T <-0.20mV, ant/lat/inf Incomplete LBBB Electronically Signed By: Leroy Awan
[2019-03-22] MEDS: ATORVASTATIN 40 MG TAB PO SCH (21:00)
[2019-03-22] MEDS ORDERED: METOPROLOL 5 MG INJ IV ONE (22:30)
[2019-03-23] VITALS (20 sets, daily range): BP systolic 97–143; BP diastolic 50–102; PULSE 58–80; RESP 12–27
[2019-03-23] MEDS: CEFAZOLIN 1 GM/50 ML (PMX) 50 ML IVPB SCH ×2 (03:31→11:00)
[2019-03-23] MEDS ORDERED: HALOPERIDOL 5 MG INJ IM PRN (07:00)
--- NOTE | 2019-03-23 07:00 | PN ---
Date/Time of Note Date/Time of Note DATE: 03/23/19 TIME: 06:48 Assessment/Plan VTE Prophylaxis Risk score (from Ns)>0 risk: 8 SCD applied (from Ns): Yes Pharmacological prophylaxis: other (patient on dual antiplatelet with SCDs) Lines/Catheters IV C[facility]ter Type (from [facility] Saline Lock Urinary Cath still in place: No Assessment/Plan Hospital Course Subjective: confused Objective: Constitutional: elderly, confused Head: atraumatic, normocephalic Neck: non-tender, supple Respiratory: clear to auscultation, diminished Cardiovascular: regular rate and rhythm Gastrointestinal: S/ NT / ND / +BS Extremities: trace edema, good radial pulses assessment and plan: 68-year-old male with a history of hypertension, CAD with CABG, colon cancer in 2008 who was brought to the ER for V-fib and after his ICD fired multiple times. He reported waking up from sleep because of the shock. He was admitted and is managed as follows : 1. Non-ST elevation myocardial infarction: -Status post PCI of the right coronary artery March 21, 2019 2. Ventricular fibrillation, status post ICD firing -Patient was also found to be in V-fib with a rate of 250 in the field. Shocked to sinus rhythm -VT storm per cardiology -s/p ICD Generator change for ICD RENETTA 03/22/19 3. Coronary artery disease history of [place] -history of coronary bypass graft 4. Ischemic cardiomyopathy -EF 30% by echo and stage 1 DD 5. Hypertension -good control 6. Dyslipidemia 7. CHF, systolic heart failure chronic and stable at this point 8. Mild to moderate aortic stenosis 9. Hx of Colon Cancer in 2008 10. Acute encephalopathy -after procedure 03/22/19, meds? Dispo -Continue with aspirin / Plavix /Coreg / lisinopril / statin per cardiology -CT brain, trial of seroquel, PRN haldol -continue ICU care and monitoring -further interventions per cardio Care time >30mins Result Diagram: 03/23/19 0431 03/23/19 0431 Results 24hrs Laboratory Tests Test 03/23/19 04:31 White Blood Count 11.6 H Red Blood Count 5.04 Hemoglobin 15.1 Hematocrit 45.2 Mean Corpuscular Volume 89.7 Mean Corpuscular Hemoglobin 30.0 Mean Corpuscular Hemoglobin Concent 33.4 Red Cell Distribution Width 13.3 Platelet Count 149 Mean Platelet Volume 10.8 H Immature Granulocytes % 0.300 Neutrophils % 72.5 Lymphocytes % 14.2 L Monocytes % 10.7 Eosinophils % 1.6 Basophils % 0.7 Nucleated Red Blood Cells % 0.0 Immature Granulocytes # 0.040 H Neutrophils # 8.4 H Lymphocytes # 1.6 Monocytes # 1.2 H Eosinophils # 0.2 Basophils # 0.1 Nucleated Red Blood Cells # 0.0 Sodium Level 139 Potassium Level 4.1 Chloride Level 106 Carbon Dioxide Level 24 Anion Gap 9 Blood Urea Nitrogen 15 Creatinine 0.74 Est Glomerular Filtrat Rate mL/min > 60 Glucose Level 103 Calcium Level 9.1 Magnesium Level 1.9 Total Bilirubin 0.8 Direct Bilirubin 0.00 Indirect Bilirubin 0.8 Aspartate Amino Transf (AST/SGOT) 35 # Alanine Aminotransferase (ALT/SGPT) 40 Alkaline Phosphatase 52 Creatine Kinase 947 H B-Type Natriuretic Peptide 2910 H Total Protein 5.8 L Albumin 3.4 Globulin 2.40 Albumin/Globulin Ratio 1.41 Exam/Review of Systems Exam Vitals Vital Signs Date Temp Pulse Resp B/P (MAP) Pulse Ox O2 O2 Flow FiO2 Time Delivery Rate 03/23/19 61 13 133/102 98 Room Air 06:00 (112) 03/23/19 98.1 04:00 03/22/19 2.0 07:00 Intake and Output 03/22/19 03/22/19 03/23/19 1515:00 23:00 07:00 IntakeIntake Total 300 ml 380 ml 50 ml OutputOutput Total 550 ml 300 ml 200 ml BalanceBalance -250 ml 80 ml -150 ml Results Results 24hrs Laboratory Tests Test 03/23/19 04:31 White Blood Count 11.6 H Red Blood Count 5.04 Hemoglobin 15.1 Hematocrit 45.2 Mean Corpuscular Volume 89.7 Mean Corpuscular Hemoglobin 30.0 Mean Corpuscular Hemoglobin Concent 33.4 Red Cell Distribution Width 13.3 Platelet Count 149 Mean Platelet Volume 10.8 H Immature Granulocytes % 0.300 Neutrophils % 72.5 Lymphocytes % 14.2 L Monocytes % 10.7 Eosinophils % 1.6 Basophils % 0.7 Nucleated Red Blood Cells % 0.0 Immature Granulocytes # 0.040 H Neutrophils # 8.4 H Lymphocytes # 1.6 Monocytes # 1.2 H Eosinophils # 0.2 Basophils # 0.1 Nucleated Red Blood Cells # 0.0 Sodium Level 139 Potassium Level 4.1 Chloride Level 106 Carbon Dioxide Level 24 Anion Gap 9 Blood Urea Nitrogen 15 Creatinine 0.74 Est Glomerular Filtrat Rate mL/min > 60 Glucose Level 103 Calcium Level 9.1 Magnesium Level 1.9 Total Bilirubin 0.8 Direct Bilirubin 0.00 Indirect Bilirubin 0.8 Aspartate Amino Transf (AST/SGOT) 35 # Alanine Aminotransferase (ALT/SGPT) 40 Alkaline Phosphatase 52 Creatine Kinase 947 H B-Type Natriuretic Peptide 2910 H Total Protein 5.8 L Albumin 3.4 Globulin 2.40 Albumin/Globulin Ratio 1.41 Medications Medication Current Medications Ondansetron HCl (Zofran Inj) 4 mg Q6H PRN IV NAUSEA AND/OR VOMITING; Start at 04:30 Albuterol/ Ipratropium (Duoneb) 3 ml Q2H RESP THERAPY PRN NEB SHORTNESS OF BREATH; Start 03/21/19 at 04:30 Acetaminophen (Tylenol Supp) 650 mg Q4H PRN [place] PAIN LEVEL 1-3 OR FEVER; Start 03/21/19 at 04:30 Aspirin (Halfprin) 81 mg DAILY PO Last administered on 03/22/19at 13:08; Admin Dose 81 MG; Start 03/21/19 at 09:00 Atorvastatin Calcium (Lipitor) 40 mg QHS PO ; Start 03/22/19 at 21:00 Miscellaneous Information (* Miscellaneous Pharmacy Order) Hold all Metformin ... ONCE XX ; Start 03/21/19 at 16:30; Stop 03/23/19 at 16:29 Clopidogrel Bisulfate (plaVIX) 75 mg DAILY PO Last administered on 03/22/19at 13:08; Admin Dose 75 MG; Start 03/22/19 at 09:00 Al Hydrox/Mg Hydrox/Simethicone (Mag-Al Plus) 30 ml Q6H PRN PO GASTROINTESTINAL UPSET Last administered on 03/21/19at 23:27; Admin Dose 30 ML; Start 03/21/19 at 23:30 Famotidine (Pepcid Iv) 20 mg BID IV Last administered on 03/22/19at 20:34; Admin Dose 20 MG; Start 03/22/19 at 09:00 Carvedilol (Coreg) 3.125 mg BID PO Last administered on 03/22/19at 13:10; Admin Dose 3.125 MG; Start 03/22/19 at 09:00 Lisinopril (Zestril) 5 mg DAILY PO Last administered on 03/22/19at 13:11; Admin Dose 5 MG; Start 03/22/19 at 09:00 Morphine Sulfate (morphine) 1 mg Q1H PRN IV PAIN LEVEL 6-10 Last administered on 03/22/19at 17:38; Admin Dose 1 MG; Start 03/22/19 at 13:30 Cefazolin Sodium 50 ml @ 100 mls/hr Q8H IVPB Last administered on 03/23/19at 03:31; Admin Dose 100 MLS/HR; Start 03/22/19 at 19:30; Stop 03/23/19 at 11:59 SOUMYA CROWDER March 23, 2019 06:59
[2019-03-23] MEDS: LISINOPRIL 5 MG TAB PO SCH (08:20)
[2019-03-23] MEDS: ASPIRIN (EC) 81 MG TAB PO SCH (08:20)
[2019-03-23] MEDS: CLOPIDOGREL 75 MG TAB PO SCH (08:20)
[2019-03-23] MEDS: FAMOTIDINE 20 MG INJ IV SCH (08:21)
[2019-03-23] MEDS: QUETIAPINE 25 MG TAB PO SCH ×2 (08:21→20:10)
--- NOTE | 2019-03-23 08:36 | CONS ---
Consult Date/Type/Reason Admit Date/Time March 21, 2019 at 04:05 Initial Consult Date 03/21/19 Type of Consultation: cv Requesting Provider: HALEY KEARNS MD Date/Time of Note DATE: 03/23/19 TIME: 08:33 Subjective Interventional cardiology follow-up progress note/critical care note Subjective: Discussed with the staff. Telemetry was reviewed. pt remains in NSR with short (6 beat VT last night ) Discussed with patient in detail. Patient with no chest pain or pressure no palpitation. No more ICD discharge. Status post PCI of ulcerated plaque of the right coronary artery on 04/07/2019. No groin pain no bleeding noted. s/p ICD gen change 03/22 pt is still in ICU under close monitoring Objective: General: no acute distress HEENT: NC/AT. pupils are equal. round. NECK: NO JVD. no stridor. CV: RRR. systolic murmur; no gallop or rubs. Chest: Status post ICD in the left side PULM: no wheezing or rhonchi. GI: SOFT, NT, ND, no rebound or guarding Extremity: trace B/L LE edema. no clubbing. neuro: awake and alert, O Psych: calm and pleasant rectal: deferred vascular: R fem no bleeding or hematoma ches: s/p ICD no bleeding or hematoma EKG shows normal sinus rhythm. Interventricular conduction delay inferior infarct EKG by paramedics showed ventricular tachycardia Echocardiogram was personally reviewed Normal left ventricular cavity size. Sigmoid septum. Severe global left ventricular systolic dysfunction. Ejection fraction is visually estimated at 30 %. Tissue Doppler/Mitral Doppler indices are consistent with impaired relaxation (Stage I diastolic dysfunction). There is moderate enlargement of left atrium. Mild mitral leaflet calcification. Mild mitral annular calcification. Trace mitral regurgitation. Mild to moderate aortic stenosis. Aortic cusps appear mildly calcified. d. Normal appearance of the tricuspid valve. Estimated peak PA systolic pressure 37 mmHg. There is mild tricuspid regurgitation. Objective Vitals Vital Signs Date Temp Pulse Resp B/P (MAP) Pulse Ox O2 O2 Flow FiO2 Time Delivery Rate 03/23/19 98.0 61 16 140/79 100 Room Air 08:00 (99) 03/22/19 2.0 07:00 Intake and Output 03/22/19 03/22/19 03/23/19 1515:00 23:00 07:00 IntakeIntake Total 300 ml 380 ml 50 ml OutputOutput Total 550 ml 300 ml 200 ml BalanceBalance -250 ml 80 ml -150 ml Results/Medications Result Diagram: 03/23/1943003/23/19430 Results 24 hrs Laboratory Tests Test 03/23/19 04:31 White Blood Count 11.6 H Red Blood Count 5.04 Hemoglobin 15.1 Hematocrit 45.2 Mean Corpuscular Volume 89.7 Mean Corpuscular Hemoglobin 30.0 Mean Corpuscular Hemoglobin Concent 33.4 Red Cell Distribution Width 13.3 Platelet Count 149 Mean Platelet Volume 10.8 H Immature Granulocytes % 0.300 Neutrophils % 72.5 Lymphocytes % 14.2 L Monocytes % 10.7 Eosinophils % 1.6 Basophils % 0.7 Nucleated Red Blood Cells % 0.0 Immature Granulocytes # 0.040 H Neutrophils # 8.4 H Lymphocytes # 1.6 Monocytes # 1.2 H Eosinophils # 0.2 Basophils # 0.1 Nucleated Red Blood Cells # 0.0 Sodium Level 139 Potassium Level 4.1 Chloride Level 106 Carbon Dioxide Level 24 Anion Gap 9 Blood Urea Nitrogen 15 Creatinine 0.74 Est Glomerular Filtrat Rate mL/min > 60 Glucose Level 103 Calcium Level 9.1 Magnesium Level 1.9 Total Bilirubin 0.8 Direct Bilirubin 0.00 Indirect Bilirubin 0.8 Aspartate Amino Transf (AST/SGOT) 35 # Alanine Aminotransferase (ALT/SGPT) 40 Alkaline Phosphatase 52 Creatine Kinase 947 H B-Type Natriuretic Peptide 2910 H Total Protein 5.8 L Albumin 3.4 Globulin 2.40 Albumin/Globulin Ratio 1.41 Home Meds Reported Medications Aspirin (Low Dose Aspirin) 81 Mg Tablet.dr, 81 MG PO DAILY, #30 TAB 03/21/19 Simvastatin* (Zocor*) 40 Mg Tablet, 40 MG PO QHS, #30 TAB 03/21/19 Nitroglycerin* (Nitrostat*) 0.4 Mg Tab.subl, 0.4 MG SL Q5MIN PRN for CHEST PAIN, BOTTLE 03/21/19 Lisinopril* (Lisinopril*) 5 Mg Tablet, 5 MG PO BID, #30 TAB 03/21/19 Cyanocobalamin* (Vitamin B12*) 500 Mcg Tab, 2000 MCG PO DAILY, TAB 03/21/19 Bisoprolol Fumarate* (Zebeta*) 5 Mg Tablet, 5 MG PO BID, TAB 03/21/19 Medications Current Medications Ondansetron HCl (Zofran Inj) 4 mg Q6H PRN IV NAUSEA AND/OR VOMITING; Start 03/21/19 at 04:30 Albuterol/ Ipratropium (Duoneb) 3 ml Q2H RESP THERAPY PRN NEB SHORTNESS OF BREATH; Start 03/21/19 at 04:30 Acetaminophen (Tylenol Supp) 650 mg Q4H PRN [place] PAIN LEVEL 1-3 OR FEVER; Start 03/21/19 at 04:30 Aspirin (Halfprin) 81 mg DAILY PO Last administered on 03/23/19 08:20; Admin Dose 81 MG; Start 03/21/19 at 09:00 Atorvastatin Calcium (Lipitor) 40 mg QHS PO ; Start 03/22/19 at 21:00 Miscellaneous Information (* Miscellaneous Pharmacy Order) Hold all Metformin ... ONCE XX ; Start 03/21/19 at 16:30; Stop 03/23/19 at 16:29 Clopidogrel Bisulfate (plaVIX) 75 mg DAILY PO Last administered on 03/23/19 08:20; Admin Dose 75 MG; Start 03/22/19 at 09:00 Al Hydrox/Mg Hydrox/Simethicone (Mag-Al Plus) 30 ml Q6H PRN PO GASTROINTESTINAL UPSET Last administered on 03/21/19at 23:27; Admin Dose 30 ML; Start 03/21/19 at 23:30 Famotidine (Pepcid Iv) 20 mg BID IV Last administered on 03/23/19 08:21; Admin Dose 20 MG; Start 03/22/19 at 09:00 Carvedilol (Coreg) 3.125 mg BID PO Last administered on 03/23/19 08:20; Admin Dose 3.125 MG; Start 03/22/19 at 09:00 Lisinopril (Zestril) 5 mg DAILY PO Last administered on 03/23/19 08:20; Admin Dose 5 MG; Start 03/22/19 at 09:00 Morphine Sulfate (morphine) 1 mg Q1H PRN IV PAIN LEVEL 6-10 Last administered on 03/22/19at 17:38; Admin Dose 1 MG; Start 03/22/19 at 13:30 Cefazolin Sodium 50 ml @ 100 mls/hr Q8H IVPB Last administered on 03/23/19at 03:31; Admin Dose 100 MLS/HR; Start 03/22/19 at 19:30; Stop 03/23/19 at 11:59 Quetiapine Fumarate (Seroquel) 25 mg BID PO Last administered on 03/23/19at 08:21; Admin Dose 25 MG; Start 03/23/19 at 09:00 Haloperidol (Haldol) 3 mg ONCE PRN IM agitation / confusion; Start 03/23/19 at 07:00; Stop 03/23/19 at 17:00 Assessment/Plan Hospital Course (Demo Recall) Non-ST elevation myocardial infarction: Status post PCI of the right coronary artery March 21, 2019 VT storm Coronary artery disease history of [place] history of coronary bypass graft Ischemic cardiomyopathy History of hypertension Dyslipidemia Abnormal EKG due to above CHF: due to systolic heart failure chronic and stable at this point Recommendation: Continue with aspirin and Plavix (importance of compliance with aspirin and Plavix was discussed with the patient and his extensively and prescription was given to her to fill it today) cont Coreg inc lisinopril cont statin Diuretics as needed. Currently does not appear to be fluid overloaded though s/p amiodarone drip. will hold off on po for now if remains stable More than 33 minutes of critical care time was for management treatment is critically ill patient excluding procedures Thank you for this referral. We will continue to follow along with you ROSI MAZARIEGOS MD [facility] ROSI MAZARIEGOS MD March 23, 2019 08:36
[2019-03-23] MEDS: LISINOPRIL 10 MG TAB PO SCH ×2 (09:00→20:11)
[2019-03-23] MEDS: ATORVASTATIN 40 MG TAB PO SCH (20:09)
[2019-03-23] MEDS: FAMOTIDINE 20 MG TAB PO SCH (20:10)
[2019-03-24] VITALS (10 sets, daily range): BP systolic 116–130; BP diastolic 65–76; PULSE 57–90; RESP 20
--- NOTE | 2019-03-24 06:06 | PN ---
Date/Time of Note Date/Time of Note DATE: 03/24/19 TIME: 05:57 Assessment/Plan VTE Prophylaxis Risk score (from Ns)>0 risk: 7 SCD applied (from Ns): Yes Pharmacological prophylaxis: other Lines/Catheters IV Catheter Type (from Nrs): Saline Lock Urinary Cath still in place: No Assessment/Plan Hospital Course Subjective: mentation is much better Objective: Constitutional: elderly, oriented x 2-3 Head: atraumatic, normocephalic Neck: non-tender, supple Respiratory: clear to auscultation, diminished Cardiovascular: regular rate and rhythm Gastrointestinal: S/ NT / ND / +BS Extremities: trace edema, good radial pulses assessment and plan: 68-year-old male with a history of hypertension, CAD with CABG, colon cancer in 2008 who was brought to the ER for V-fib and after his ICD fired multiple times. He reported waking up from sleep because of the shock. He was admitted and is managed as follows : 1. Non-ST elevation myocardial infarction: -Status post PCI of the right coronary artery March 21, 2019 2. Ventricular fibrillation, status post ICD firing -Patient was also found to be in V-fib with a rate of 250 in the field. Shocked to sinus rhythm -VT storm per cardiology -s/p ICD Generator change for ICD RENETTA 03/22/19 -s/p amiodarone gtt 3. Coronary artery disease history of [place] -history of coronary bypass graft 4. Ischemic cardiomyopathy -EF 30% by echo and stage 1 DD 5. Hypertension -good control 6. Dyslipidemia 7. CHF, systolic heart failure chronic and stable at this point 8. Mild to moderate aortic stenosis 9. Hx of Colon Cancer in 2008 10. Acute encephalopathy -after procedure 03/22/19, meds? Dispo -Continue with aspirin / Plavix /Coreg / lisinopril / statin per cardiology -Spot diuresis per cardiology -PT eval -discuss d/c planning with /family / case mgt Result Diagram: 03/24/19 0457 03/24/19 0457 Results 24hrs Laboratory Tests Test 03/24/19 04:57 White Blood Count 10.0 Red Blood Count 4.95 Hemoglobin 14.7 Hematocrit 44.2 Mean Corpuscular Volume 89.3 Mean Corpuscular Hemoglobin 29.7 Mean Corpuscular Hemoglobin Concent 33.3 Red Cell Distribution Width 13.2 Platelet Count 153 Mean Platelet Volume 11.0 H Immature Granulocytes % 0.400 Neutrophils % 69.7 Lymphocytes % 15.4 Monocytes % 11.1 H Eosinophils % 2.8 Basophils % 0.6 Nucleated Red Blood Cells % 0.0 Immature Granulocytes # 0.040 H Neutrophils # 7.0 Lymphocytes # 1.6 Monocytes # 1.1 H Eosinophils # 0.3 Basophils # 0.1 Nucleated Red Blood Cells # 0.0 Sodium Level 140 Potassium Level 3.9 Chloride Level 107 Carbon Dioxide Level 24 Anion Gap 9 Blood Urea Nitrogen 18 Creatinine 0.83 Est Glomerular Filtrat Rate mL/min > 60 Glucose Level 126 Calcium Level 9.0 Magnesium Level 2.0 Total Bilirubin 0.6 Direct Bilirubin 0.00 Indirect Bilirubin 0.6 Aspartate Amino Transf (AST/SGOT) 21 Alanine Aminotransferase (ALT/SGPT) 26 Alkaline Phosphatase 54 Creatine Kinase 400 #H Creatine Kinase Index 0.3 Creatinine Kinase MB (Mass) 1.17 Troponin I 1.590 *H B-Type Natriuretic Peptide 1580 H Total Protein 5.6 L Albumin 3.2 L Globulin 2.40 Albumin/Globulin Ratio 1.33 Triglycerides Level 77 Cholesterol Level 117 LDL Cholesterol, Calculated 51 HDL Cholesterol 51 Cholesterol/HDL Ratio 2.2 Exam/Review of Systems Exam Vitals Vital Signs Date Temp Pulse Resp B/P (MAP) Pulse Ox O2 O2 Flow FiO2 Time Delivery Rate 03/24/19 98.0 63 20 130/67 94 04:01 (88) 03/23/19 Room Air 16:00 03/22/19 2.0 07:00 Intake and Output 03/23/19 03/23/19 03/24/19 1515:00 23:00 07:00 IntakeIntake Total 350 ml 0 ml OutputOutput Total 600 ml BalanceBalance 350 ml 0 ml -600 ml Results Results 24hrs Laboratory Tests Test 03/24/19 04:57 White Blood Count 10.0 Red Blood Count 4.95 Hemoglobin 14.7 Hematocrit 44.2 Mean Corpuscular Volume 89.3 Mean Corpuscular Hemoglobin 29.7 Mean Corpuscular Hemoglobin Concent 33.3 Red Cell Distribution Width 13.2 Platelet Count 153 Mean Platelet Volume 11.0 H Immature Granulocytes % 0.400 Neutrophils % 69.7 Lymphocytes % 15.4 Monocytes % 11.1 H Eosinophils % 2.8 Basophils % 0.6 Nucleated Red Blood Cells % 0.0 Immature Granulocytes # 0.040 H Neutrophils # 7.0 Lymphocytes # 1.6 Monocytes # 1.1 H Eosinophils # 0.3 Basophils # 0.1 Nucleated Red Blood Cells # 0.0 Sodium Level 140 Potassium Level 3.9 Chloride Level 107 Carbon Dioxide Level 24 Anion Gap 9 Blood Urea Nitrogen 18 Creatinine 0.83 Est Glomerular Filtrat Rate mL/min > 60 Glucose Level 126 Calcium Level 9.0 Magnesium Level 2.0 Total Bilirubin 0.6 Direct Bilirubin 0.00 Indirect Bilirubin 0.6 Aspartate Amino Transf (AST/SGOT) 21 Alanine Aminotransferase (ALT/SGPT) 26 Alkaline Phosphatase 54 Creatine Kinase 400 #H Creatine Kinase Index 0.3 Creatinine Kinase MB (Mass) 1.17 Troponin I 1.590 *H B-Type Natriuretic Peptide 1580 H Total Protein 5.6 L Albumin 3.2 L Globulin 2.40 Albumin/Globulin Ratio 1.33 Triglycerides Level 77 Cholesterol Level 117 LDL Cholesterol, Calculated 51 HDL Cholesterol 51 Cholesterol/HDL Ratio 2.2 Medications Medication Current Medications Ondansetron HCl (Zofran Inj) 4 mg Q6H PRN IV NAUSEA AND/OR VOMITING; Start 03/21/19 at 04:30 Albuterol/ Ipratropium (Duoneb) 3 ml Q2H RESP THERAPY PRN NEB SHORTNESS OF BREATH; Start 03/21/19 at 04:30 Acetaminophen (Tylenol Supp) 650 mg Q4H PRN [place] PAIN LEVEL 1-3 OR FEVER; Start 03/21/19 at 04:30 Aspirin (Halfprin) 81 mg DAILY PO Last administered on 03/23/19at 08:20; Admin Dose 81 MG; Start 03/21/19 at 09:00 Atorvastatin Calcium (Lipitor) 40 mg QHS PO Last administered on 03/23/19at 20:09; Admin Dose 40 MG; Start 03/22/19 at 21:00 Clopidogrel Bisulfate (plaVIX) 75 mg DAILY PO Last administered on 03/23/19at 08:20; Admin Dose 75 MG; Start 03/22/19 at 09:00 Al Hydrox/Mg Hydrox/Simethicone (Mag-Al Plus) 30 ml Q6H PRN PO GASTROINTESTINAL UPSET Last administered on 03/21/19at 23:27; Admin Dose 30 ML; Start 03/21/19 at 23:30 Carvedilol (Coreg) 3.125 mg BID PO Last administered on 03/23/19 20:10; Admin Dose 3.125 MG; Start 03/22/19 at 09:00 Morphine Sulfate (morphine) 1 mg Q1H PRN IV PAIN LEVEL 6-10 Last administered on 03/22/19at 17:38; Admin Dose 1 MG; Start 03/22/19 at 13:30 Quetiapine Fumarate (Seroquel) 25 mg BID PO Last administered on 03/23/19 20:10; Admin Dose 25 MG; Start 03/23/19 at 09:00 Lisinopril (Zestril) 10 mg BID PO Last administered on 03/23/19at 20:11; Admin Dose 10 MG; Start 03/23/19 at 09:00 Famotidine (Pepcid) 20 mg BID PO Last administered on 03/23/19 20:10; Admin Dose 20 MG; Start 03/23/19 at 21:00 SOUMYA CROWDER March 24, 2019 06:06
[2019-03-24] MEDS: FAMOTIDINE 20 MG TAB PO SCH (08:16)
[2019-03-24] MEDS: ASPIRIN (EC) 81 MG TAB PO SCH (08:16)
[2019-03-24] MEDS: CLOPIDOGREL 75 MG TAB PO SCH (08:16)
[2019-03-24] MEDS: LISINOPRIL 10 MG TAB PO SCH (08:17)
[2019-03-24] MEDS: QUETIAPINE 25 MG TAB PO SCH (08:19)
--- NOTE | 2019-03-24 09:12 | CONS ---
Consult Date/Type/Reason Admit Date/Time March 21, 2019 at 04:05 Initial Consult Date 03/21/19 Type of Consultation: cv Requesting Provider: HALEY KEARNS MD Date/Time of Note DATE: 03/24/19 TIME: 09:10 Subjective Interventional cardiology follow-up progress note/critical care note Subjective: Discussed with the staff. Telemetry was reviewed. pt remains in NSR Discussed with patient in detail. Patient with no chest pain or pressure no palpitation. No more ICD discharge. Status post PCI of ulcerated plaque of the right coronary artery on 04/07/2019. No groin pain no bleeding noted. s/p ICD gen change 03/22. no chest wall pain Objective: General: no acute distress HEENT: NC/AT. pupils are equal. round. NECK: NO JVD. no stridor. CV: RRR. systolic murmur; no gallop or rubs. Chest: Status post ICD in the left side PULM: no wheezing or rhonchi. GI: SOFT, NT, ND, no rebound or guarding Extremity: trace B/L LE edema. no clubbing. neuro: awake and alert, O Psych: calm and pleasant rectal: deferred vascular: R fem no bleeding or hematoma ches: s/p ICD no bleeding or hematoma EKG shows normal sinus rhythm. Interventricular conduction delay inferior infarct EKG by paramedics showed ventricular tachycardia Echocardiogram was personally reviewed Normal left ventricular cavity size. Sigmoid septum. Severe global left ventricular systolic dysfunction. Ejection fraction is visually estimated at 30 %. Tissue Doppler/Mitral Doppler indices are consistent with impaired relaxation (Stage I diastolic dysfunction). There is moderate enlargement of left atrium. Mild mitral leaflet calcification. Mild mitral annular calcification. Trace mitral regurgitation. Mild to moderate aortic stenosis. Aortic cusps appear mildly calcified. d. Normal appearance of the tricuspid valve. Estimated peak PA systolic pressure 37 mmHg. There is mild tricuspid regurgitation. Objective Vitals Vital Signs Date Temp Pulse Resp B/P (MAP) Pulse Ox O2 O2 Flow FiO2 Time Delivery Rate 03/24/19 66 08:00 03/24/19 98.3 20 125/76 96 07:09 (92) 03/23/19 Room Air 16:00 03/22/19 2.0 07:00 Intake and Output 03/23/19 03/23/19 03/24/19 1515:00 23:00 07:00 IntakeIntake Total 350 ml 0 ml 100 ml OutputOutput Total 1200 ml BalanceBalance 350 ml 0 ml -1100 ml Results/Medications Result Diagram: 03/24/19 0457 03/24/19 0457 Results 24 hrs Laboratory Tests Test 03/24/19 04:57 White Blood Count 10.0 Red Blood Count 4.95 Hemoglobin 14.7 Hematocrit 44.2 Mean Corpuscular Volume 89.3 Mean Corpuscular Hemoglobin 29.7 Mean Corpuscular Hemoglobin Concent 33.3 Red Cell Distribution Width 13.2 Platelet Count 153 Mean Platelet Volume 11.0 H Immature Granulocytes % 0.400 Neutrophils % 69.7 Lymphocytes % 15.4 Monocytes % 11.1 H Eosinophils % 2.8 Basophils % 0.6 Nucleated Red Blood Cells % 0.0 Immature Granulocytes # 0.040 H Neutrophils # 7.0 Lymphocytes # 1.6 Monocytes # 1.1 H Eosinophils # 0.3 Basophils # 0.1 Nucleated Red Blood Cells # 0.0 Sodium Level 140 Potassium Level 3.9 Chloride Level 107 Carbon Dioxide Level 24 Anion Gap 9 Blood Urea Nitrogen 18 Creatinine 0.83 Est Glomerular Filtrat Rate mL/min > 60 Glucose Level 126 Calcium Level 9.0 Magnesium Level 2.0 Total Bilirubin 0.6 Direct Bilirubin 0.00 Indirect Bilirubin 0.6 Aspartate Amino Transf (AST/SGOT) 21 Alanine Aminotransferase (ALT/SGPT) 26 Alkaline Phosphatase 54 Creatine Kinase 400 #H Creatine Kinase Index 0.3 Creatinine Kinase MB (Mass) 1.17 Troponin I 1.590 *H B-Type Natriuretic Peptide 1580 H Total Protein 5.6 L Albumin 3.2 L Globulin 2.40 Albumin/Globulin Ratio 1.33 Triglycerides Level 77 Cholesterol Level 117 LDL Cholesterol, Calculated 51 HDL Cholesterol 51 Cholesterol/HDL Ratio 2.2 Home Meds Reported Medications Aspirin (Low Dose Aspirin) 81 Mg Tablet.dr, 81 MG PO DAILY, #30 TAB 03/21/19 Simvastatin* (Zocor*) 40 Mg Tablet, 40 MG PO QHS, #30 TAB 03/21/19 Nitroglycerin* (Nitrostat*) 0.4 Mg Tab.subl, 0.4 MG SL Q5MIN PRN for CHEST PAIN, BOTTLE 03/21/19 Lisinopril* (Lisinopril*) 5 Mg Tablet, 5 MG PO BID, #30 TAB 03/21/19 Cyanocobalamin* (Vitamin B12*) 500 Mcg Tab, 2000 MCG PO DAILY, TAB 03/21/19 Bisoprolol Fumarate* (Zebeta*) 5 Mg Tablet, 5 MG PO BID, TAB 03/21/19 Medications Current Medications Ondansetron HCl (Zofran Inj) 4 mg Q6H PRN IV NAUSEA AND/OR VOMITING; Start 03/21/19 at 04:30 Albuterol/ Ipratropium (Duoneb) 3 ml Q2H RESP THERAPY PRN NEB SHORTNESS OF BREATH; Start 03/21/19 at 04:30 Acetaminophen (Tylenol Supp) 650 mg Q4H PRN [place] PAIN LEVEL 1-3 OR FEVER; Start 03/21/19 at 04:30 Aspirin (Halfprin) 81 mg DAILY PO Last administered on 03/24/19at 08:16; Admin Dose 81 MG; Start 03/21/19 at 09:00 Atorvastatin Calcium (Lipitor) 40 mg QHS PO Last administered on 03/23/19at 2 0:09; Admin Dose 40 MG; Start 03/22/19 at 21:00 Clopidogrel Bisulfate (plaVIX) 75 mg DAILY PO Last administered on 03/24/19at 08:16; Admin Dose 75 MG; Start 03/22/19 at 09:00 Al Hydrox/Mg Hydrox/Simethicone (Mag-Al Plus) 30 ml Q6H PRN PO GASTROINTESTINAL UPSET Last administered on 03/21/19at 23:27; Admin Dose 30 ML; Start 03/21/19 at 23:30 Carvedilol (Coreg) 3.125 mg BID PO Last administered on 03/24/19 08:17; Admin Dose 3.125 MG; Start 03/22/19 at 09:00 Morphine Sulfate (morphine) 1 mg Q1H PRN IV PAIN LEVEL 6-10 Last administered on 03/22/19at 17:38; Admin Dose 1 MG; Start 03/22/19 at 13:30 Quetiapine Fumarate (Seroquel) 25 mg BID PO Last administered on 03/24/19 08:19; Admin Dose 25 MG; Start 03/23/19 at 09:00 Lisinopril (Zestril) 10 mg BID PO Last administered on 03/24/19 08:17; Admin Dose 10 MG; Start 03/23/19 at 09:00 Famotidine (Pepcid) 20 mg BID PO Last administered on 03/24/19at 08:16; Admin Dose 20 MG; Start 03/23/19 at 21:00 Assessment/Plan Hospital Course (Demo Recall) Non-ST elevation myocardial infarction: Status post PCI of the right coronary artery March 21, 2019 VT storm Coronary artery disease history of PR history of coronary bypass graft Ischemic cardiomyopathy History of hypertension Dyslipidemia Abnormal EKG due to above CHF: due to systolic heart failure chronic and stable at this point Recommendation: Continue with aspirin and Plavix (importance of compliance with aspirin and Plavix was discussed with the patient and his extensively ) cont Coreg cont lisinopril and inc as tolerated. cont statin Diuretics as needed. Currently does not appear to be fluid overloaded though s/p amiodarone drip. will hold off on po for now if remains stable awaiting transfer to [place]. cont tele Thank you for this referral. We will continue to follow along with you ROSI MAZARIEGOS MD [facility] ROSI MAZARIEGOS MD March 24, 2019 09:12
--- NOTE | 2019-03-24 11:44 | DS ---
Date/Time of Note Date/Time of Note DATE: 03/24/19 TIME: 11:30 Discharge Summary Admission/Discharge Info Admit Date/Time March 21, 2019 at 04:05 Discharge Date/Time Discharge Diagnosis 68-year-old male with a history of hypertension, CAD with CABG, colon cancer in 2008 who was brought to the ER for V-fib and after his ICD fired multiple times. He reported waking up from sleep because of the shock. He was admitted and is managed as follows : 1. Non-ST elevation myocardial infarction: -Status post PCI of the right coronary artery March 21, 2019 2. Ventricular fibrillation, status post ICD firing -Patient was also found to be in V-fib with a rate of 250 in the field. Shocked to sinus rhythm -VT storm per cardiology -s/p ICD Generator change for ICD RENETTA 03/22/19 -s/p amiodarone gtt 3. Coronary artery disease history of [place] -history of coronary bypass graft 4. Ischemic cardiomyopathy -EF 30% by echo and stage 1 DD 5. Hypertension -good control 6. Dyslipidemia 7. CHF, systolic heart failure chronic and stable at this point 8. Mild to moderate aortic stenosis 9. Hx of Colon Cancer in 2008 10. Transient Acute encephalopathy : resolved . Patient Condition: Stable Consults Cardiology: Kulwinder Rider MD . Procedures See hospital course . Hospital Course This is an extremely pleasant 68-year-old male who was brought into the emergency room with his family via ambulance with a history of hypertension, coronary artery disease status post CABG, history of colon cancer in 2008 and had a history of AICD placement. His ICD had fired multiple times during the night and and was woken from sleep because of the shock. This had happened about a week prior to admission and his ICD has been interrogated, but no changes had been made at that time. In the emergency room he was found to be in ventricular fibrillation with a rate of 250 and had to be shocked, but then reverted to sinus rhythm with a rate of 65 bpm. He was found to have elevation in his troponin levels. Urgent cardiology consultation was obtained. Patient underwent left heart catheterization and successful PTCA and stenting of the proximal right coronary artery. He also had selective graft and left internal mammary artery angiography. He was found to have 80% ulcerated plaque in the right coronary artery which underwent successful stenting. Recommendations aggressive medical therapy, indefinite aspirin use, and well antiplatelet therapy with aspirin and Plavix for the next 1 year. Patient was also diagnosed to have VT storm which likely precipitated repeated firing, hence he underwent ICD generator change March 22, 2019. Please see chart and documentation for details. After the procedure, he had transient episode of confusion, but this resolved fairly quickly. Patient did require a short course of Seroquel and as needed Haldol therapy. He has done well since. He also did require spot diuresis for mild diastolic CHF. At this time he is maintained on telemetry mainly for observation. He is stable for transfer to [place] for insurance reasons if indicated. If not, he will probably be discharged home to his family care tomorrow. . Home Meds Reported Medications Aspirin (Low Dose Aspirin) 81 Mg Tablet.dr, 81 MG PO DAILY, #30 TAB 03/21/19 Simvastatin* (Zocor*) 40 Mg Tablet, 40 MG PO QHS, #30 TAB 03/21/19 Nitroglycerin* (Nitrostat*) 0.4 Mg Tab.subl, 0.4 MG SL Q5MIN PRN for CHEST PAIN, BOTTLE 03/21/19 Lisinopril* (Lisinopril*) 5 Mg Tablet, 5 MG PO BID, #30 TAB 03/21/19 Cyanocobalamin* (Vitamin B12*) 500 Mcg Tab, 2000 MCG PO DAILY, TAB 03/21/19 Bisoprolol Fumarate* (Zebeta*) 5 Mg Tablet, 5 MG PO BID, TAB 03/21/19 Primary Care Provider Not On Staff Doctor Time spent on discharge: > 30 minutes Pending Labs Laboratory Tests Test 03/24/19 04:57 White Blood Count 10.0 10^3/ul (4.8-10.8) Red Blood Count 4.95 10^6/ul (4.70-6.10) Hemoglobin 14.7 g/dl (14.0-18.0) Hematocrit 44.2 % (42.0-52.0) Mean Corpuscular Volume 89.3 fl (82.0-101.0) Mean Corpuscular Hemoglobin 29.7 pg (29.0-33.0) Mean Corpuscular Hemoglobin Concent 33.3 g/dl (32.0-37.0) Red Cell Distribution Width 13.2 % (11.5-14.5) Platelet Count 153 10^3/UL (140-415) Mean Platelet Volume 11.0 fl (7.4-10.4) Immature Granulocytes % 0.400 % (0.001-0.429) Neutrophils % 69.7 % (39.0-77.0) Lymphocytes % 15.4 % (15.0-51.0) Monocytes % 11.1 % (0.0-11.0) Eosinophils % 2.8 % (0.0-7.0) Basophils % 0.6 % (0.0-2.0) Nucleated Red Blood Cells % 0.0 /100WBC (0.0-0.0) Immature Granulocytes # 0.040 10^3/ul (0.0-0.031) Neutrophils # 7.0 10^3/ul (1.6-7.5) Lymphocytes # 1.6 10^3/ul (0.8-2.9) Monocytes # 1.1 10^3/ul (0.3-0.9) Eosinophils # 0.3 10^3/ul (0.0-0.5) Basophils # 0.1 10^3/ul (0.0-0.1) Nucleated Red Blood Cells # 0.0 10^3/ul (0.0-0.0) Sodium Level 140 mmol/L (135-144) Potassium Level 3.9 mmol/L (3.5-5.1) Chloride Level 107 mmol/L (97-110) Carbon Dioxide Level 24 mmol/L (21-31) Anion Gap 9 (5-13) Blood Urea Nitrogen 18 mg/dl (7-20) Creatinine 0.83 mg/dl (0.61-1.24) Est Glomerular Filtrat Rate mL/min > 60 mL/min (>60) Glucose Level 126 mg/dl (70-220) Calcium Level 9.0 mg/dl (8.4-10.2) Magnesium Level 2.0 mg/dl (1.7-2.5) Total Bilirubin 0.6 mg/dl (0.2-1.3) Direct Bilirubin 0.00 mg/dl (0.00-0.20) Indirect Bilirubin 0.6 mg/dl (0-1.1) Aspartate Amino Transf (AST/SGOT) 21 IU/L (15-46) Alanine Aminotransferase (ALT/SGPT) 26 IU/L (13-69) Alkaline Phosphatase 54 IU/L (42-121) Creatine Kinase 400 IU/L (23-200) Creatine Kinase Index 0.3 Creatinine Kinase MB (Mass) 1.17 ng/ml (0.0-2.4) Troponin I 1.590 ng/ml (0.000-0.120) B-Type Natriuretic Peptide 1580 PG/ML (0-125) Total Protein 5.6 g/dl (6.1-8.1) Albumin 3.2 g/dl (3.3-4.9) Globulin 2.40 g/dl (1.3-3.2) Albumin/Globulin Ratio 1.33 Triglycerides Level 77 mg/dl (0-149) Cholesterol Level 117 mg/dl (100-200) LDL Cholesterol, Calculated 51 mg/dl HDL Cholesterol 51 mg/dl (31-75) Cholesterol/HDL Ratio 2.2 RATIO SOUMYA CROWDER March 24, 2019 11:44
== END 2019-03-24 17:10 | disposition short-term general hospital (02) | DRG 245 ==
LOC: E/R 01:56 → ICU 04:05 → EDBEDREQ 07:48 → EDBEDREQSVC 07:48 → EDBEDREQ 07:50 → ICU 03-23 12:07 → 6WM 03-23 18:04
PROVIDERS: ADMIT Internal Medicine; ATTEND Internal Medicine
PROC: 027034Z Dilation of Coronary Artery, One Artery with Drug-eluting Intraluminal Device, Percutaneous Approach (ICD-10-PCS; principal; 2019-03-21)
PROC: 4A023N7 Measurement of Cardiac Sampling and Pressure, Left Heart, Percutaneous Approach (ICD-10-PCS; 2019-03-21)
PROC: B211YZZ Fluoroscopy of Multiple Coronary Arteries using Other Contrast (ICD-10-PCS; 2019-03-21)
PROC: B218YZZ Fluoroscopy of Left Internal Mammary Bypass Graft using Other Contrast (ICD-10-PCS; 2019-03-21)
PROC: B213YZZ Fluoroscopy of Multiple Coronary Artery Bypass Grafts using Other Contrast (ICD-10-PCS; 2019-03-21)
PROC: 0JH608Z Insertion of Defibrillator Generator into Chest Subcutaneous Tissue and Fascia, Open Approach (ICD-10-PCS; 2019-03-22)
PROC: 0JPT0PZ Removal of Cardiac Rhythm Related Device from Trunk Subcutaneous Tissue and Fascia, Open Approach (ICD-10-PCS; 2019-03-22)
DX: I21.4 Non-ST elevation (NSTEMI) myocardial infarction (principal); I47.2 Ventricular tachycardia; I50.22 Chronic systolic (congestive) heart failure; G93.40 Encephalopathy, unspecified; I11.0 Hypertensive heart disease with heart failure; Z45.02 Encounter for adjustment and management of automatic implantable cardiac defibrillator; I25.10 Atherosclerotic heart disease of native coronary artery without angina pectoris; I25.5 Ischemic cardiomyopathy; E78.5 Hyperlipidemia, unspecified; I25.2 Old myocardial infarction; Z85.038 Personal history of other malignant neoplasm of large intestine; Z95.1 Presence of aortocoronary bypass graft
CPT/HCPCS: 33264; 36415; 71045; 80053; 80061; 82550; 82553; 83735; 83880; 84443; 84484; 85025; 85610; 85730; 87081; 92928; 93005; 93306; 93459; 96374; 96375; 96376; 97161; C1725; C1760; C1874; C1887; C1894; C9113; J0282; J0583; J0690; J1644; J2060; J2250; J2270; J2370; J2405; J3010; J7030; J7040; J7042; J7060; Q9967

== ENCOUNTER 2019-04-20 21:15 | Inpatient (IN) | payer OTHER ==
[~2019-04-20] VITALS: Ht 203.2 cm; Wt 95.5 kg
[~2019-04-20 21:15] MED LIST: ASPI81TA52 PO; BISO5TAB2 PO; CYAN500T46 PO; LISI-313 PO; NITR0.4T39 SL; SIMV40TA2 PO
[2019-04-20] MEDS ORDERED: HYDROmorphONE 0.5 MG/0.5 ML SYG IV STA (21:41)
[2019-04-20] MEDS ORDERED: LORAZEPAM 2 MG INJ ONE (21:42)
[2019-04-20] MEDS ORDERED: HYDROmorphONE 1 MG/ML SYG ONE (21:42)
[2019-04-20] MEDS ORDERED: LORAZEPAM 2 MG INJ IV ONE (22:00)
[2019-04-20] MEDS ORDERED: PIPER-TAZO 3.375 GM IV (PMX) 100 ML IVPB ONE (22:00)
[2019-04-20] MEDS ORDERED: VECURONIUM 10 MG VIAL IV ONE (22:00)
[2019-04-20] MEDS ORDERED: VANCOMYCIN 1 GM (PMX) 250 ML IVPB ONE (22:00)
[2019-04-20] MEDS ORDERED: NORepinephrine 8MG/250 ML (PMX 250 ML ONE (22:05)
[2019-04-20] MEDS ORDERED: VECURONIUM 10 MG VIAL ONE (23:00)
[2019-04-20] MEDS ORDERED: SODIUM CHLORIDE 0.9% 1L BAG IV* STA ×2 (23:02→23:25)
[2019-04-20] MEDS ORDERED: IPRATROPIUM (HFA) 12.9 GM INHALER INH PRN (23:30)
[2019-04-20] MEDS ORDERED: ALBUTEROL HFA 8 GM INHALER INH PRN (23:30)
[2019-04-20] MEDS ORDERED: HEPARIN 5,000 UNIT/1 ML VIAL SC SCH (23:30)
[2019-04-20] MEDS ORDERED: ACETAMINOPHEN 650MG/20.3ML CUP NGT PRN (23:30)
[2019-04-20] MEDS ORDERED: ONDANSETRON 4 MG INJ IV PRN (23:30)
--- NOTE | 2019-04-20 23:51 | ERD ---
ER Documentation Chief Complaint Chief Complaint [id number] FROM HOME W/ ROSC, S/P RESP/CARDIAC ARREST HPI The patient is a 68-year-old male, presenting to the ER because of acute shortness of breath. 911 was called at 2010 hrs., arrived at the scene at 2016 hrs. The patient was in agonal breathing and went to respiratory arrest then cardiac arrest. He was immediately intubated with a Paresh airway temporarily, treated with epinephrine 1 mg IV x4. On arrival to the ER he had ROSC at 21:15hr. According to EMS was in PEA, asystole, PEA, sinus tach during the transport The history was initially obtained from the EMS and medical record, I was to discuss with her later when she came to the ER. Upon arrival to the ER, the Paresh airway was exchanged with a permanent endotracheal tube Medical history: CAD, hypertension, CAD, history of colon cancer, ischemic gammopathy, dyslipidemia, ventral hernia, history of CHF, aortic stenosis Past surgical history: ICD, he had a stent PCI of the RCA on March 21, 2018 ROS All systems reviewed and are negative except as per history of present illness. Medications Home Meds Reported Medications Aspirin (Low Dose Aspirin) 81 Mg Tablet.dr, 81 MG PO DAILY, #30 TAB 03/21/19 Simvastatin* (Zocor*) 40 Mg Tablet, 40 MG PO QHS, #30 TAB 03/21/19 Nitroglycerin* (Nitrostat*) 0.4 Mg Tab.subl, 0.4 MG SL Q5MIN PRN for CHEST PAIN, BOTTLE 03/21/19 Lisinopril* (Lisinopril*) 5 Mg Tablet, 5 MG PO BID, #30 TAB 03/21/19 Cyanocobalamin* (Vitamin B12*) 500 Mcg Tab, 2000 MCG PO DAILY, TAB 03/21/19 Bisoprolol Fumarate* (Zebeta*) 5 Mg Tablet, 5 MG PO BID, TAB 03/21/19 Allergies Allergies: Coded Allergies: No Known Allergy (Unverified , 03/21/19) PMhx/Soc History of Surgery: Yes (Colon Resection 2008, CABG 2004) Anesthesia Reaction: No Hx Neurological Disorder: No Hx Respiratory Disorders: No Hx Cardiac Disorders: Yes (PACEMAKER, STENTS) Hx Psychiatric Problems: No Hx Miscellaneous Medical Probl: Yes (pls see EMR) Smoking Status: Unknown if ever smoked Physical Exam Vitals Vital Signs Date Temp Pulse Resp B/P (MAP) Pulse Ox O2 O2 Flow FiO2 Time Delivery Rate 04/20/19 50 16 76/55 (62) 96 Mechanical 21:51 Ventilator 04/20/19 97.0 50 24 126/79 93 21:50 (95) 04/20/19 50 16 79/57 (64) 97 Mechanical 21:48 Ventilator 04/20/19 51 26 102/79 97 Mechanical 21:45 (87) Ventilator 04/20/19 52 21 104/66 97 Mechanical 21:40 (79) Ventilator 04/20/19 57 40 95 100 21:38 04/20/19 50 30 95/73 (80) 95 Mechanical 21:30 Ventilator 04/20/19 50 18 116/76 95 Mechanical 21:20 (89) Ventilator 04/20/19 50 19 133/77 93 Mechanical 21:18 (95) Ventilator 04/20/19 97.0 50 19 126/79 92 Ambu Bag 21:16 (95) Physical Exam Const: Severe acute distress. Head: Atraumatic. Eyes: Normal Conjunctiva. ENT: Normal External Ears, Nose and Mouth. Neck: Full range of motion. No meningismus. Resp: Clear to auscultation anteriorly. Cardio: Regular rate and rhythm. Abd: Soft, non distended, normal bowel sounds, large ventral hernia Skin: No petechiae or rashes. Back: No midline or flank tenderness. Ext: No cyanosis, or edema. Neur: Unable to obtain due to his condition Psych: Unable to obtain due to his condition Result Diagram: 04/20/19212404/20/192124 Results 24 hrs Laboratory Tests Test 04/20/19 21:25 04/20/19 21:28 04/20/19 21:38 04/20/19 22:00 White Blood 18.9 10^3/ul Count Red Blood Count 4.58 10^6/ul Hemoglobin 13.7 g/dl Hematocrit 43.8 % Mean Corpuscular 95.6 fl Volume Mean Corpuscular 29.9 pg Hemoglobin Mean Corpuscular 31.3 g/dl Hemoglobin Sharon nt Red Cell 13.9 % Distribution Width Platelet Count 222 10^3/UL Mean Platelet 10.8 fl Volume Immature 6.400 % Granulocytes % Segmented 73 % Neutrophils % (Manual) Band Neutrophils 4 % % (Manual) Lymphocytes % 10 % (Manual) Reactive 5 % Lymphocytes % (Manual) Monocytes % 5 % (Manual) Eosinophils % 3 % (Manual) Nucleated Red 1 % Blood Cells % Immature 1.210 10^3/ul Granulocytes # Neutrophils # 13.9 10^3/ul (Manual) Band Neutrophils 0.7 10^3/ul # Lymphocytes 1.8 10^3/ul (Manual) Reactive 0.9 10^3/ul Lymphocytes # Monocytes # 0.9 10^3/ul (Manual) Polychromasia 1+ Poikilocytosis 1+ Anisocytosis 1+ Prothrombin Time 17.7 Sec Prothrombin Time 1.4 Ratio INR 1.45 International Normalized Ratio Activated 34.5 Sec Partial Thrombop last Time Sodium Level 135 mmol/L Potassium Level 5.4 mmol/L Chloride Level 103 mmol/L Carbon Dioxide 15 mmol/L Level Anion Gap 17 Blood Urea 24 mg/dl Nitrogen Creatinine 1.46 mg/dl Est Glomerular 48 mL/min Filtrat Rate mL/min Glucose Level 217 mg/dl Calcium Level 8.3 mg/dl Total Bilirubin 0.7 mg/dl Direct Bilirubin 0.00 mg/dl Indirect 0.7 mg/dl Bilirubin Aspartate Amino 655 IU/L Transf (AST/SGOT ) Alanine 603 IU/L Aminotransferase (ALT/SGPT) Alkaline 149 IU/L Phosphatase Troponin I 0.080 ng/ml Total Protein 6.5 g/dl Albumin 3.6 g/dl Globulin 2.90 g/dl Albumin/Globulin 1.24 Ratio Bedside Glucose 204 mg/dL POC Venous 6.3 mmol/L Lactate Blood Gas Blood arterial Specimen Source Arterial Blood 04/20/2019 11:00: Date Drawn 43 PM Arterial Blood 7.110 pH (Temp corrected) Arterial Blood 46.8 mmhg pCO2 (Temp correct) Arterial Blood 99.1 mmHG pO2 (Temp corrected) Arterial Blood 14.5 mmol/L HCO3 Arterial Blood -14.7 mmol/L Base Excess Arterial Blood 95.2 mmHG Oxygen Saturatio n Сергей Test N/A Arterial Blood Right Brachial Gas Puncture Site Arterial 0.8 % Blood Carboxyhem oglobin Arterial Blood 0.4 % Methemoglobin Blood Gas A-a O2 567.1 mmHg Differential Oxyhemoglobin 94.1 % Percent Blood Gas 37.0 C Temperature Blood Gas 16.0 Respiration Rate Blood Gas Actual 16 Respiration Rate Blood Gas VENT - AC Modality FiO2 100.0 % Blood Gas Tidal 500.0 mL Volume Blood Gas Low 5.0 cmH2O PEEP Setting Blood Gas 39.0 Inspiratory Pressure Blood Gas Kylah BEASLEY MD Critical Value Read Back Blood Gas KM Notified Whom Blood Gas 04/20/2019 11:12: Notified Time 33 PM Current Medications Medications Dose Sig/Mirela Start Time Status Last (Trade) Ordered Route PRN Stop Time Admin Dose Reason Admin Lorazepam 2 mg STK-MED 04/20/19 DC (Ativan) ONCE .ROUTE 21:42 04/20/19 21:43 1 mg STK-MED 04/20/19 DC Hydromorphone ONCE .ROUTE 21:42 HCl 04/20/19 21:43 (Dilaudid) 1 mg ONCE STAT 04/20/19 DC 04/20/19 Hydromorphone IV 21:41 21:44 HCl 04/20/19 21:43 (Dilaudid) Lorazepam 2 mg ONCE ONCE 04/20/19 DC 04/20/19 (Ativan) IV 22:00 21:43 04/20/19 22:01 Vecuronium 10 mg ONCE ONCE 04/20/19 DC 04/20/19 Craig IV 22:00 21:44 (Norcuron) 04/20/19 22:01 Piperacillin 100 ml @ ONCE ONCE 04/20/19 DC 04/20/19 Sod/ 200 mls/hr IVPB 22:00 22:36 Tazobactam 04/20/19 22:29 Sod Vancomycin 250 ml @ ONCE ONCE 04/20/19 04/20/19 HCl 125 mls/hr IVPB 22:00 22:51 04/20/19 23:59 250 ml @ ud STK-MED 04/20/19 DC Norepinephrin ONCE .ROUTE 22:05 e 04/20/19 22:06 Sodium 3,000 ml BOLUS OVER 2 04/20/19 DC 04/20/19 Chloride HOURS STAT 23:02 23:15 (NS) IV* 04/20/19 23:26 Sodium 2,050 ml BOLUS OVER 2 04/20/19 DC Chloride HOURS STAT 23:25 (NS) IV* 04/20/19 23:26 250 ml @ TITRATE IV 04/21/19 Norepinephrin 1.875 mls/ 00:00 e hr Propofol 100 ml @ 0 TITRATE 04/21/19 mls/hr ONCE IV 00:00 04/21/19 00:01 Procedures/MDM [place] [address] Radiology Main Line: [phone] DIAGNOSTIC IMAGING REPORT Patient: ISSA JOHNSON : 1950 Age: 68 Sex: M MR #: [id number] DOS: 04/20/19 2130 Ordering MD: JOSEPH BEASLEY MD Location: E/R Room/Bed: PROCEDURE: XR Chest. CLINICAL INDICATION: Status post intubation TECHNIQUE: Single portable view of the chest was obtained COMPARISON: DR CLAUDIO 03/22/2019 FINDINGS: There is a new endotracheal tube 3.0 cm above the namrata. There is a nasogastric tube within the stomach. There is moderate cardiomegaly status post sternotomy. There is a left-sided pacemaker / AICD in place. There is extensive right upper lobe consolidation. There are patchy left upper lobe and bilateral lower lobe infiltrates. RPTAT: AA IMPRESSION: New endotracheal tube in appropriate position. Nasogastric tube within the stomach. Extensive right upper lobe consolidation. Patchy left upper lobe and bilateral lower lobe infiltrates. .Chris Early MD, MD Date Time Electronically viewed and signed by .Chris Early MD, MD on 04/20/2019 22:05 .S/ CC: JOSEPH BEASLEY MD [phone] EK:28hr Read by emergency physician Rate/Rhythm: Sinus Bradycardia 50 beats/min QRS, ST, T-waves: No ST elevation, LAD, NSIVCB, lateral & inferior Q's, minimal ST elevation on inferior lead Impression: Abnormal EKG Consultation: I discussed the patient with the on-call enlisted aircrew/aerial observer/gunner Dr Moore, who reviewed the EKG himself and did not think the patient require any emergent intervention MEDICAL MAKING DECISION: The patient is a 68-year-old male, presenting with with acute respiratory arrest, acute cardiac arrest, acute septic shock, acute bilat eral pneumonia, acute kidney injury, acute hyperkalemia, acute coagulopathy He was treated with NG tube, Parra catheter, hypothermia was activated, was treated with Dilaudid 1 mg IV, Ativan 2 mg IV and vecuronium 10 mg IV for post intubation. He was treated with vancomycin IV, Zosyn IV, ideal body weight IV fluid and Levophed for acute septic shock due to acute bilateral pneumonia The differential diagnoses considered include but are not limited to cardiac arrhythmia, aspiration pneumonia, electrolyte imbalance, UTI, pyelonephritis MDM: Patient's infectious symptoms have not stabilized and the patient is at risk of rapid decompensation. The patient will be admitted for careful hydration, antibiotic therapy, and infectious source control. SEVERE SEPSIS CRITERIA: Infectious source: pna End organ damage indicated by: [Lactate > 2.0 mmol/L Hypotension (SBP < 90 or >40 mmHG drop or MAP < 65) Acute Resp Failure (sat < 92% w/o oxygen) SEPSIS MANAGEMENT Time of recognition of septic shock: 23:00 hr. 3 HOUR BUNDLE Blood cultures x 2 before broad-spectrum antibiotics: [Yes] 30 ml/kg NS bolus [Completed] Initial lactate []6.3 Repeat lactate Pending SEPTIC SHOCK ASSESSMENT: [Y] lactic acid > 4.0 [Y] Persistent hypotension (SBP < 90 or 40 mmHg drop, MAP < 65) despite 30 mL/kg IV fluid bolus VOLUME REASSESSMENT FOR SEPTIC SHOCK: Reevaluation Time: [] Temp []97, BP []79/57, HR []50, RR[]16, Pox []95% Heart bradycardiac, regular Lungs [No crackles] Skin [Warm & dry] Cap Refill [Less than 2 seconds] Peripheral pulses [Radially present] PERSISTENT HYPOTENSION TREATMENT: Comfort care [No] Central line [R Femoral Vein] Vasopressor started [Levophed] I considered further perfusion assessment with CVP measurement, SCVO2, bedside u ltrasound volume assessment, passive leg raise, trial of further fluid bolus. And proceeded with [30 ml/kg fluid bolus of NSS, broad spectrum antibiotics, and admission.] CRITICAL CARE Critical care time [35] minutes Emergent fluid management while maintaining close respiratory support. Provis ion of immediate and broad-spectrum antibiotic therapy. Simultaneous assessment for possible sources in order to direct targeted therapy. Consideration for invasive and chemical support to prevent cardiopulmonary collapse. Critical care time is independent of procedures performed. Central Line Placement by me: After the patient was consented and a time out was performed, appropriate hand hygiene was performed, the skin site was fully prepped and maximal sterile barrier technique was employed where the patient was sterilely draped, and the provider wore a mask and sterile gown and gloves. Anesthesia: 1% lidocaine locally Location: R Femoral V Device: Multiple lumen Technique: Seldinger technique. Secured with suture. Results: Venous return from all ports with easy saline flush. No complications. []Guide wire retrieved and disposed of. ED Ultrasound: Central line placed by me using concurrent ultrasound guidance done using sterile technique. Real time image archived in the medical record confirms vascular anatomy. Endotracheal Intubation by me: Pre assessment performed. See preceding note for details. Pre-oxygenation performed with 100% oxygen RSI: Performed w/o complication or hypoxic events. Medications as ordered. Blade: Matos ET Tube: 7.5cm Depth: 23cm at the lip Intubation confirmed by colorimetric CO2, equal breath sounds, quiet over the stomach. Departure Diagnosis: Primary Impression: Respiratory arrest Additional Impressions: Cardiac arrest Septic shock PNA (pneumonia) LENO (acute kidney injury) Hyperkalemia Coagulopathy Anemia Condition: Critical Comments I discussed the patient with the [facility] physician Dr. Stephens at 11:20 PM, who authorized the admission I discussed the findings with the patient. I discussed the patient with Dr Gong at 11:25pm , who was made aware of the lab, the treatment, the patient condition. The patient is admitted to ICU I discussed the patient condition with the family including the and the son Disclaimer: Inadvertent spelling and grammatical errors are likely due to EHR/dictation software use and do not reflect on the overall quality of patient care. Also, please note that the electronic time recorded on this note does not necessarily reflect the actual time of the patient encounter. JOSEPH BEASLEY MD Apr 20, 2019 23:45
[2019-04-21] VITALS (74 sets, daily range): BP systolic 77–153; BP diastolic 60–87; PULSE 48–56; RESP 16–23; Ht 203.2 cm; Wt 95.5 kg
[2019-04-21] MEDS ORDERED: NORepinephrine 8MG/250 ML (PMX 250 ML IV SCH
[2019-04-21] MEDS ORDERED: PROPOFOL 100 ML IV ONE
[2019-04-21] MEDS ORDERED: SODIUM CHLORIDE 0.9% 500 ML BAG IV* STA (00:03)
[2019-04-21] MEDS: FAMOTIDINE 20 MG INJ IV SCH ×3 (00:28→20:27)
[2019-04-21] MEDS ORDERED: MEPERIDINE 25 MG INJ IV PRN (01:00)
[2019-04-21] MEDS: SOD CHLORIDE 0.9% 1,000 ML IV SCH ×3 (01:16→11:07)
[2019-04-21] MEDS: VECURONIUM 100 MG in DEXTROSE 5% 100 ML IV ONE ×2 (01:19→06:17)
--- NOTE | 2019-04-21 01:19 | HP ---
Date/Time of Note Date/Time of Note DATE: 04/21/19 TIME: Assessment/Plan VTE Prophylaxis SCD applied (from Nsg): Yes Pharmacological prophylaxis: NA/contraindicated Pharm contraindication: low risk/ambulating Lines/Catheters IV Catheter Type (from Nrsg): Central Line Central line still needed: Yes (critical care, hypothermia protocol) Urinary Cath still in place: Yes Reason Cath still needed: other (indicate) (critical condition) Assessment/Plan Hospital Course This is a 68-year-old male being admitted to the ICU floor for: Assessment: PEA Cardiopulmonary arrest, etiology possibly arrhythmia Acute ventilatory dependent respiratory failure Shock, cardiogenic and possibly septic Transaminitis likely secondary to passive congestion, shock Suspect community acquired pneumonia vs aspiration pneumonia Lactic acidosis Sinus bradycardia Acute kidney injury Suspect anoxic injury Gallbladder wall thickening History of coronary artery disease status post CABG and stenting History of VT storm History of AICD placement with recent ICD generator change History of ischemic cardiomyopathy with EF of 30% history of dyslipidemia History of hypertension History of non-STEMI Plan: Transfer to ICU for close management Initiation of hypothermia protocol, serial labs, serial ABGs Continue ventilator management, serial ABGs, consultation with pulmonology Broad-spectrum antibiotics and vancomycin and Zosyn Blood pressure support with levophed and IV fluids Trend cardiac enzymes, the first that was negative, echocardiogram, consultation with cardiology Resume home medications as indicated Right upper quadrant ultrasound for gallbladder wall thickening, transaminitis CT brain/MRI brain, EEG once hemodynamically stable. neurology consultation once off of hypothermia protocol DVT and GI prophylaxis I had an extensive discussion with the over the phone and explained the patient's critical condition. I did state that the overall prognosis is poor based on my current assessment as there is concern for possible anoxic brain injury and him being non responsive, no gag reflex and non reactive pupils. She is agreeable with the current plan of hypothermia protocol. However does state that she does not want her to be kept alive on a machine for prolonged period of time and does not want her to be kept alive in a vegetative state. In the meantime the patient will remain a full code, however in the event of any further acute event such as cardiac arrest the would like to be notified. In the meantime we will continue hypothermia protocol and then once we get more information through the patient's hospital course we will discuss with the further goals of care. CODE STATUS: Full code Greater than 45 minutes critical care time was spent on the care management this patient. Further treatment strategy will be implemented as per the clinical course. Result Diagram: 04/21/192 04/20/192124 Results 24hrs Laboratory Tests Test 04/20/19 21:25 04/20/19 21:28 04/20/19 21:38 04/20/19 22:00 White Blood 18.9 #H Count Red Blood Count 4.58 L Hemoglobin 13.7 L Hematocrit 43.8 Mean Corpuscular 95.6 Volume Mean Corpuscular 29.9 Hemoglobin Mean Corpuscular 31.3 L Hemoglobin Sharon nt Red Cell 13.9 Distribution Width Platelet Count 222 # Mean Platelet 10.8 H Volume Immature 6.400 H Granulocytes % Segmented 73 Neutrophils % (Manual) Band Neutrophils 4 % (Manual) Lymphocytes % 10 L (Manual) Reactive 5 H Lymphocytes % (Manual) Monocytes % 5 (Manual) Eosinophils % 3 (Manual) Nucleated Red 1 H Blood Cells % Immature 1.210 H Granulocytes # Neutrophils # 13.9 H (Manual) Band Neutrophils 0.7 H # Lymphocytes 1.8 (Manual) Reactive 0.9 H Lymphocytes # Monocytes # 0.9 (Manual) Polychromasia 1+ Poikilocytosis 1+ Anisocytosis 1+ Prothrombin Time 17.7 #H Prothrombin Time 1.4 Ratio INR 1.45 International Normalized Ratio Activated 34.5 Partial Thrombop last Time Sodium Level 135 Potassium Level 5.4 H Chloride Level 103 Carbon Dioxide 15 L Level Anion Gap 17 H Blood Urea 24 H Nitrogen Creatinine 1.46 H Est Glomerular 48 L Filtrat Rate mL/min Glucose Level 217 Calcium Level 8.3 L Total Bilirubin 0.7 Direct Bilirubin 0.00 Indirect 0.7 Bilirubin Aspartate Amino 655 H Transf (AST/SGOT ) Alanine 603 H Aminotransferase (ALT/SGPT) Alkaline 149 H Phosphatase Troponin I 0.080 Total Protein 6.5 Albumin 3.6 Globulin 2.90 Albumin/Globulin 1.24 Ratio Bedside Glucose 204 POC Venous 6.3 *H Lactate Blood Gas Blood arterial Specimen Source Arterial Blood 04/20/2019 11:00 Date Drawn :43 PM Arterial Blood 7.110 *L pH (Temp corrected) Arterial Blood 46.8 H pCO2 (Temp correct) Arterial Blood 99.1 pO2 (Temp corrected) Arterial Blood 14.5 L HCO3 Arterial Blood -14.7 L Base Excess Arterial Blood 95.2 Oxygen Saturatio n Сергей Test N/A Arterial Blood Right Brachial Gas Puncture Site Arterial 0.8 Blood Carboxyhem oglobin Arterial Blood 0.4 Methemoglobin Blood Gas A-a O2 567.1 H Differential Oxyhemoglobin 94.1 Percent Blood Gas 37.0 Temperature Blood Gas 16.0 Respiration Rate Blood Gas Actual 16 Respiration Rate Blood Gas VENT - AC Modality FiO2 100.0 Blood Gas Tidal 500.0 Volume Blood Gas Low 5.0 PEEP Setting Blood Gas 39.0 Inspiratory Pressure Blood Gas Kylah BEASLEY MD Critical Value Read Back Blood Gas Notified Whom Blood Gas 04/20/2019 11:12 Notified Time :33 PM Test 04/20/19 23:11 04/21/19 00:03 04/21/19 00:42 Urine Color YELLOW Urine Clarity TURBID A Urine pH 5.0 Urine Specific 1.020 [place] Urine Ketones NEGATIVE Urine Nitrite NEGATIVE Urine Bilirubin NEGATIVE Urine 2+ H Urobilinogen Urine Leukocyte NEGATIVE Esterase Urine 31 H Microscopic RBC Urine 0 Microscopic WBC Urine Squamous FEW Epithelial Cells Urine Bacteria FEW A Urine Hyaline FEW A Casts Urine Mucus MANY A Urine Hemoglobin 1+ H Urine Glucose 1+ H Urine Total 3+ H Protein Blood Gas Blood arterial Specimen Source Arterial Blood 04/21/2019 12:15 Date Drawn :06 AM Arterial Blood 7.103 *L pH (Temp corrected) Arterial Blood 50.7 H pCO2 (Temp correct) Arterial Blood 94.2 pO2 (Temp corrected) Arterial Blood 15.5 L HCO3 Arterial Blood -14.1 L Base Excess Arterial Blood 94.3 L Oxygen Saturatio n Сергей Test ACCEPTAB Arterial Blood Right Radial Gas Puncture Site Arterial 0.7 Blood Carboxyhem oglobin Arterial Blood 0.3 Methemoglobin Blood Gas A-a O2 568.1 H Differential Oxyhemoglobin 93.4 Percent Blood Gas 37.0 Temperature Blood Gas 16.0 Respiration Rate Blood Gas Actual 16 Respiration Rate Blood Gas VENT - AC Modality FiO2 100.0 Blood Gas Tidal 500.0 Volume Blood Gas Low 5.0 PEEP Setting Blood Gas Chantal LAWSON MD Critical Value Read Back Blood Gas Notified Whom Blood Gas 04/21/2019 12:26 Notified Time :44 AM White Blood 20.4 H Count Red Blood Count 4.20 L Hemoglobin 12.4 L Hematocrit 39.9 L Mean Corpuscular 95.0 Volume Mean Corpuscular 29.5 Hemoglobin Mean Corpuscular 31.1 L Hemoglobin Sharon nt Red Cell 14.0 Distribution Width Platelet Count 197 Mean Platelet 10.1 Volume Immature 1.600 H Granulocytes % Neutrophils % 85.8 H Lymphocytes % 4.9 L Monocytes % 7.1 Eosinophils % 0.3 Basophils % 0.3 Nucleated Red 0.0 Blood Cells % Immature 0.330 H Granulocytes # Neutrophils # 17.5 H Lymphocytes # 1.0 Monocytes # 1.5 H Eosinophils # 0.1 Basophils # 0.1 Nucleated Red 0.0 Blood Cells # HPI/ROS Admit Date/Time Admit Date/Time Hx of Present Illness Chief complaint: Cardiopulmonary arrest brought in via EMS The following history was obtained from the as well as from the ED physician documentation as patient currently in critical condition. This is a 68-year-old male who presented to the ER via EMS status post cardiopulmonary arrest. reports that the patient returned home from work and he had been complaining of abdominal pain which have been going on for the last few weeks since being discharged from the hospital. She states that he did not look good to him so she called 911. During that time prior to the paramedics arriving the reports that the patient collapsed. When the pa ramedics arrived they reported that he was agonal breathing and then went into cardiac arrest. CPR was immediately initiated. Patient was intubated with a Paresh airway. He was treated with epinephrine 1 mg IV x4. He went in and out of cardiac arrest and finally had return to spontaneous circulation at approximately 5. Patient apparently went into multiple rhythms of PEA and asystole. When he arrived to the emergency department patient was intubated. He had a central line placed. He was started on pressor support due to hypotension. And he was initiated on hypothermia protocol. Allergies: NKDA Medications: See MAR came home from work complaing of stomach pain. Pain had been going since being discharged. but it would come and go. He had been working. ROS Subjective hx not possible: pt critical status (Intubated) PMH/Family/Social Past Medical History CAD, hypertension, CAD, history of colon cancer, ischemic cardiomyopathy, dyslipidemia, ventral hernia, history of CHF, aortic stenosis, VT storm Medications Current Medications Norepinephrine 250 ml @ 1.875 mls/ hr TITRATE IV Last administered on 04/20/19at 22:15; Admin Dose 3.75 MLS/HR; Start 04/21/19 at 00:00 Sodium Chloride 1,000 ml @ 100 mls/hr Q10H IV Last administered on 04/21/19at 01:16; Admin Dose 100 MLS/HR; Start 04/20/19 at 23:30 Ondansetron HCl (Zofran Inj) 4 mg Q6H PRN IV NAUSEA AND/OR VOMITING; Start 04/20/19 at 23:30 Albuterol (Ventolin Hfa) 4 puff Q2H RESP THERAPY PRN INH SHORTNESS OF BREATH; Start 04/20/19 at 23:30 Ipratropium Crystal (Atrovent Hfa) 4 puff Q2H RESP THERAPY PRN INH SHORTNESS OF BREATH; Start 04/20/19 at 23:30 Acetaminophen (Tylenol Liquid) 650 mg Q6H PRN NGT PAIN LEVEL 1-3 OR FEVER; Start 04/20/19 at 23:30 Famotidine (Pepcid Iv) 20 mg Q12 IV Last administered on 04/21/19at 00:28; Admin Dose 20 MG; Start 04/20/19 at 23:30 Norepinephrine 16 mg/Dextrose 250 ml @ 0.94 mls/hr TITRATE IV ; Start 04/21/19 at 00:00 Vecuronium Crystal 100 mg/ Dextrose 100 ml @ 6 mls/hr [id number] ONCE IV ; Start 04/21/19 at 00:03; Stop 04/21/19 at 16:42 Acetaminophen (Tylenol Liquid) 650 mg Q8 NGT ; Start 04/21/19 at 06:00 Buspirone HCl (Buspar) 30 mg Q8 PO ; Start 04/21/19 at 06:00 Eye Lubricant (Artificial Tears Oph) 2 drop Q6H BOTH EYES ; Start 04/21/19 at 06:00 Eye Lubricant (Akwa Oint) 1 applic Q6 BOTH EYES ; Start 04/21/19 at 06:00 Meperidine HCl (Demerol) 12.5 mg Q2H PRN IV shivering; Start 04/21/19 at 01:00 Coded Allergies: No Known Allergy (Unverified , 03/21/19) Past Surgical History CABG, ICD, he had a stent PCI of the RCA, ICD generator change Past Surgical Hx: other Family History Significant Family History: no pertinent family hx Social History Alcohol Use: none Smoking Status: Former smoker (recently quit in the past few weeks) Drug Use: none Exam/Review of Systems Vital Signs Vitals Vital Signs Date Temp Pulse Resp B/P (MAP) Pulse Ox O2 O2 Flow FiO2 Time Delivery Rate 04/21/19 96.2 50 20 125/64 97 00:55 (84) 04/21/19 Mechanical 00:40 Ventilator 04/21/19 100 00:00 Exam Exam General: Patient currently intubated, off of sedation nonresponsive HEENT: Atraumatic, normocephalic. Pupils pinpoint and nonreactive to light, ET tube in place Neck: Supple with full range of motion. No rigidity or meningismus Lungs: Clear to auscultation bilaterally no crackles rales or wheezing Heart: Normal S1-S2, Regular rhythm and rate. No murmur, S3, or S4 Abdomen: Soft , nontender, nondistended , bowel sounds are present. No guarding no rebound tenderness , No masses or organomegaly. No costovertebral temporal angle mass Extremities: Normal to inspection, no edema no cyanosis Neurologic: Intubated, nonreactive off sedation. Pupils pinpoint and nonreactive to light. No gag reflex. Additional Comments EKG: Rate/Rhythm: Sinus Bradycardia 50 beats/min QRS, ST, T-waves: LAD, NSIVCB, lateral & inferior Q's, PROCEDURE: CT Abdomen and pelvis without contrast. CLINICAL INDICATION: Abdominal pain. TECHNIQUE: CT scan of the abdomen and pelvis was performed on a multi- detector high-resolution CT scanner. Contiguous axial images were obtained from the lung bases to the ischial tuberosities without intravenous contrast. C oronal and sagittal reformatted images were also obtained. Images were reviewed on the PACS workstation. DICOM images are available. One or more of the following dose reduction techniques were used: - Automated exposure control. - Adjustment of the mA and/or kV according to patient size. - Use of iterative reconstruction technique. Exam CTD/vol = 19.06 mGy. Total exam DLP = 1233.79 mGy-cm. COMPARISON: None. FINDINGS: Evaluation of the lung bases demonstrates bilateral small to moderate pleural effusions with underlying atelectasis/consolidations. The heart is mildly enlarged with coronary artery calcifications. There are calcifications at the apex of the left ventricle suggestive of old infarct. There is mild pulmonary venous congestion. Mediasternotomy wires are present. There is a nasogastric tube extending to the stomach. Abdomen: The liver is normal in size. There is no focal mass or dilatation of the biliary tree. The gallbladder is not distended. There is mild gallbladder wall thickening with adjacent stranding. The spleen and pancreas are within normal limits. There is a nodule within the right adrenal gland measuring 2.2 x 1.7 cm. There is a nodule within the left adrenal gland measuring 1.6 x 1.2 sinus with Hounsfield characteristics compatible with adenoma. Bilateral kidneys are normal in size with no contour deforming mass identified. There are bilateral renal calcifications which are likely vascular. There is no radiopaque ureteral calculus identified. There is no hydronephrosis or hydroureter. There is no retroperitoneal adenopathy. The abdominal aorta is of normal caliber with scattered atherosclerotic calcifications. There is diastasis recti with a mild to moderate ventral abdominal hernia containing partial loops of bowel. There is no bowel obstruction or free air. A normal appendix is identified. There is no diverticulosis or diverticulitis. There is no ascites. Pelvis: The bladder contains a Parra catheter. There are bilateral small inguinal hernias containing fat. The prostate and seminal vesicles are within n ormal limits. There is no significant pelvic adenopathy or free fluid. There are bilateral scrotal hydroceles. Evaluation of the osseous structures demonstrates no suspicious lytic or blastic lesion. IMPRESSION: Mild nonspecific gallbladder wall thickening. Clinical correlation is recommended and further evaluation can be made by ultrasound. Diastasis recti with mild to moderate ventral abdominal hernia containing partial loops of bowel. There is no bowel obstruction. Bilateral small to moderate pleural effusion with underlying atelectasis/consolidations. Mild cardiomegaly with calcifications at the left ventricular apex suggestive of old infarct. Mild pulmonary venous congestion. Bilateral adrenal nodules. Vascular calcifications reflective of atherosclerosis. Bilateral small inguinal hernias containing fat. Bilateral scrotal hydroceles. .Anthony Mckeon MD, MD Date Time Electronically viewed and signed by .Anthony Mckeon MD, MD on 04/21/2019 01:21 .T/ CC: JOSEPH BEASLEY MD [phone] PROCEDURE: XR Chest. CLINICAL INDICATION: Status post intubation TECHNIQUE: Single portable view of the chest was obtained COMPARISON: DR CLAUDIO 03/22/2019 FINDINGS: There is a new endotracheal tube 3.0 cm above the namrata. There is a nasogastric tube within the stomach. There is moderate cardiomegaly status post sternotomy. There is a left-sided pacemaker / AICD in place. There is extensive right upper lobe consolidation. There are patchy left upper lobe and bilateral lower lobe infiltrates. RPTAT: AA IMPRESSION: New endotracheal tube in appropriate position. Nasogastric tube within the stomach. Extensive right upper lobe consolidation. Patchy left upper lobe and bilateral lower lobe infiltrates. .Chris Early MD, MD Date Time Electronically viewed and signed by .Chris Early MD, MD on 04/20/2019 22:05 .S/ CC: JOSEPH BEASLEY MD [id number] FERMIN WANG Apr 21, 2019 01:19
[2019-04-21] MEDS: PROPOFOL 100 ML IV PRN ×3 (01:42→20:06)
[2019-04-21] MEDS ORDERED: VANCOMYCIN IV PER PHARMACY XX SCH (02:30)
[2019-04-21] MEDS ORDERED: LORAZEPAM 2 MG INJ IV ONE (03:00)
[2019-04-21] MEDS: OCULAR LUBRICANT 3.5 GM OPH OINT BOTH EYES SCH ×4 (05:47→23:36)
[2019-04-21] MEDS: ACETAMINOPHEN 650MG/20.3ML CUP NGT SCH ×3 (05:47→22:00)
[2019-04-21] MEDS: PIPER-TAZO 3.375 GM IV (PMX) 100 ML IVPB SCH ×4 (05:47→23:35)
[2019-04-21] MEDS: ARTIFICIAL TEARS 15 ML OPH BOTH EYES SCH ×4 (05:47→23:36)
[2019-04-21] MEDS: BUSPIRONE 5 MG TAB PO SCH ×3 (05:47→22:00)
[2019-04-21] MEDS: FENTAnyl (DRIP) 1000 mcg/100mL 100 ML IV PRN (06:20)
[2019-04-21] MEDS ORDERED: AMIO200T4 PO (07:15)
[2019-04-21] MEDS ORDERED: ATOR40TA68 PO (07:16)
[2019-04-21] MEDS ORDERED: CLOP75TA27 PO (07:16)
--- NOTE | 2019-04-21 07:39 | CONS ---
Assessment/Plan Assessment/Plan Hospital Course (Demo Recall) PEA Cardiopulmonary arrest History of severe ischemic cardiomyopathy Coronary artery disease with history of coronary artery bypass graft and recent PCI History of ventricular tachycardia status post ICD placement History of hypertension Dyslipidemia Abdominal pain Abdominal hernia Pneumonia Hypoxemic respiratory failure status post intubation Shock: Probably combination of septic as well as cardiogenic Encephalopathy and 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 PLAVIX to be resumed as soon as possible Interrogated statin showed ICD to see if there was any ventricular arrhythmia noted again Hypothermia protocol to be completed Electrolyte to be corrected PPIs IV Antibiotic as per internal medicine Continue with levphed drip and will try to titrate off if tolerated Continue with ICU care 45 minutes of critical care time was spent treatment management is critically ill patient excluding any procedures Thank you for this referral. We will continue to follow along with you ROSI MAZARIEGOS MD [facility] Consultation Date/Type/Reason Admit Date/Time Date of Consultation: Apr 21, 2019 Type of Consult Cardiology Reason for Consultation CPA Requesting Provider: FERMIN WANG Date/Time of Note DATE: 04/21/19 TIME: 07:26 Hx of Present Illness Interventional cardiology consultation note/critical care Chief complaint: Reason for consult: History of present illness: Thank you for this referral. History was obtained from the patient's hosted by next review of the old chart discussion with the physician staff. Patient also is known to me from previous admission to our [facility] last month when he presented with VT storm This is a gentleman with history of severe ischemic cardiomyopathy who was brought in after cardiopulmonary arrest. Patient has had abdominal pain over the past few days post abdominal pain. Has had some nausea vomiting. His saw him yesterday and has not been doing well. Paramedics were called. By the time paramedics patient apparently was in PEA arrest. CPR was done patient was intubated. Epi was given. No shock was required ICD discharge has been given in the past. Patient is currently hypotensive protocol in ICU ON LEVEPHED drip. Allergies: No known drug allergies Medications were reviewed as per medical reconciliation sheet Family history: Father with coronary artery disease Social history: + smoking Past medical history: Coronary artery disease status post ND status post three-vessel bypass surgery about 14 years ago status post ICD ischemic cardiomyopathy congestive heart failure the hypertension dyslipidemia smoker Recent history of VT storm about a month ago. Status post PCI of his large right coronary artery last month by myself [employer] Memory impairment Review of system: Patient denies all others except for above-mentioned Past Medical History Home Meds Reported Medications Atorvastatin* (Atorvastatin*) 40 Mg Tablet, 40 MG PO QHS, #30 TAB 04/21/19 Clopidogrel Bisulfate (Clopidogrel) 75 Mg Tablet, 75 MG PO DAILY, #30 TAB 04/21/19 Amiodarone Hcl* (Amiodarone Hcl*) 200 Mg Tablet, 200 MG PO BID, #60 TAB 04/21/19 Aspirin (Low Dose Aspirin) 81 Mg Tablet.dr, 81 MG PO DAILY, #30 TAB 03/21/19 Nitroglycerin* (Nitrostat*) 0.4 Mg Tab.subl, 0.4 MG SL Q5MIN PRN for CHEST PAIN, BOTTLE 03/21/19 Lisinopril* (Lisinopril*) 5 Mg Tablet, 5 MG PO BID, #30 TAB 03/21/19 Cyanocobalamin* (Vitamin B12*) 500 Mcg Tab, 2000 MCG PO DAILY, TAB 03/21/19 Bisoprolol Fumarate* (Zebeta*) 5 Mg Tablet, 5 MG PO BID, TAB 03/21/19 Discontinued Reported Medications Simvastatin* (Zocor*) 40 Mg Tablet, 40 MG PO QHS, #30 TAB 03/21/19 Medications Current Medications Sodium Chloride 1,000 ml @ 100 mls/hr Q10H IV Last administered on 04/21/19at 01:16; Admin Dose 100 MLS/HR; Start 04/20/19 at 23:30 Ondansetron HCl (Zofran Inj) 4 mg Q6H PRN IV NAUSEA AND/OR VOMITING; Start 04/20/19 at 23:30 Albuterol (Ventolin Hfa) 4 puff Q2H RESP THERAPY PRN INH SHORTNESS OF BREATH; Start 04/20/19 at 23:30 Ipratropium Benton (Atrovent Hfa) 4 puff Q2H RESP THERAPY PRN INH SHORTNESS OF BREATH; Start 04/20/19 at 23:30 Acetaminophen (Tylenol Liquid) 650 mg Q6H PRN NGT PAIN LEVEL 1-3 OR FEVER; Sta rt 04/20/19 at 23:30 Famotidine (Pepcid Iv) 20 mg Q12 IV Last administered on 04/21/19at 00:28; Admin Dose 20 MG; Start 04/20/19 at 23:30 Norepinephrine 16 mg/Dextrose 250 ml @ 0.94 mls/hr TITRATE IV ; Start 04/21/19 at 00:00 Vecuronium Benton 100 mg/ Dextrose 100 ml @ 6 mls/hr [id number] ONCE IV Last administered on 04/21/19 06:17; Admin Dose 6 MLS/HR; Start 04/21/19 at 00:03; Stop 04/21/19 at 16:42 Acetaminophen (Tylenol Liquid) 650 mg Q8 NGT ; Start 04/21/19 at 06:00 Buspirone HCl (Buspar) 30 mg Q8 PO ; Start 04/21/19 at 06:00 Eye Lubricant (Artificial Tears Oph) 2 drop Q6H BOTH EYES Last administered on 04/21/19at 05:47; Admin Dose 2 DROP; Start 04/21/19 at 06:00 Eye Lubricant (Akwa Oint) 1 applic Q6 BOTH EYES Last administered on 04/21/19at 05:47; Admin Dose 1 APPLIC; Start 04/21/19 at 06:00 Meperidine HCl (Demerol) 12.5 mg Q2H PRN IV shivering; Start 04/21/19 at 01:00 Propofol 100 ml @ 3 mls/hr TITRATE PRN IV AGITATION Last administered on 04/21/19at 01:42; Admin Dose 3 MLS/HR; Start 04/21/19 at 01:30 Fentanyl 100 ml @ 2.5 mls/hr TITRATE PRN IV PAIN Last administered on 04/21at 06:20; Admin Dose 2.5 MLS/HR; Start 04/21/19 at 02:00 Vancomycin HCl (Vanco Iv Per Pharmacy) VANCOMYCIN PER PHARMACY PER PROTOCOL XX ; Start 04/21/19 at 02:30 Piperacillin Sod/ Tazobactam Sod 100 ml @ 200 mls/hr Q6 IVPB Last administered on 04/21/19 05:47; Admin Dose 200 MLS/HR; Start 04/21/19 at 06:00 Vancomycin HCl 1.5 gm/Sodium Chloride 250 ml @ 83.333 mls/ hr Q24H IVPB ; Start 04/21/19 at 20:00 Allergies: Coded Allergies: No Known Allergy (Unverified , 5/13/19) Past Surgical History Past Surgical Hx: other Social History Alcohol Use: none Smoking Status: Former smoker (recently quit in the past few weeks) Drug Use: none Exam/Review of Systems Vital Signs Vitals Vital Signs Date Temp Pulse Resp B/P (MAP) Pulse Ox O2 O2 Flow FiO2 Time Delivery Rate 04/21/19 50 20 100/63 100 07:00 (75) 04/21/19 91.5 06:00 04/21/19 100 05:10 04/21/19 Mechanical 00:40 Ventilator Intake and Output 04/20/19 04/20/19 04/21/19 1515:00 23:00 07:00 IntakeIntake Total 692.750 ml OutputOutput Total 380 ml BalanceBalance 312.750 ml Exam Exam General: Status post intubation on the vent. Sedated test HEENT: NC/AT. NECK:. no stridor. CV: RRR. systolic murmur; no gallop or rubs. PULM: no wheezing + rhonchi. GI: SOFT, NT, ND, no rebound or guarding Extremity: trace B/L LE edema. no clubbing. neuro: Sedated Psych: calm rectal: deferred : normal EKG shows atrial paced with ventricular conduction test Chest x-ray shows: New endotracheal tube in appropriate position. Nasogastric tube within the stomach. Extensive right upper lobe consolidation. Patchy left upper lobe and bilateral lower lobe infiltrates. Abdominal CT shows: Mild nonspecific gallbladder wall thickening. Clinical correlation is recommended and further evaluation can be made by ultrasound. Diastasis recti with mild to moderate ventral abdominal hernia containing partial loops of bowel. There is no bowel obstruction. Bilateral small to moderate pleural effusion with underlying atelectasis/consolidations. Mild cardiomegaly with calcifications at the left ventricular apex suggestive of old infarct. Mild pulmonary venous congestion. Bilateral adrenal nodules. Vascular calcifications reflective of atherosclerosis. Bilateral small inguinal hernias containing fat. Bilateral scrotal hydroceles. Labs Result Diagram: 04/21/19 0440 04/21/19 0430 Results 24hrs Laboratory Tests Test 04/20/19 21:25 04/20/19 21:28 04/20/19 21:38 04/20/19 22:00 White Blood 18.9 #H Count Red Blood Count 4.58 L Hemoglobin 13.7 L Hematocrit 43.8 Mean Corpuscular 95.6 Volume Mean Corpuscular 29.9 Hemoglobin Mean Corpuscular 31.3 L Hemoglobin Sharon nt Red Cell 13.9 Distribution Width Platelet Count 222 # Mean Platelet 10.8 H Volume Immature 6.400 H Granulocytes % Segmented 73 Neutrophils % (Manual) Band Neutrophils 4 % (Manual) Lymphocytes % 10 L (Manual) Reactive 5 H Lymphocytes % (Manual) Monocytes % 5 (Manual) Eosinophils % 3 (Manual) Nucleated Red 1 H Blood Cells % Immature 1.210 H Granulocytes # Neutrophils # 13.9 H (Manual) Band Neutrophils 0.7 H # Lymphocytes 1.8 (Manual) Reactive 0.9 H Lymphocytes # Monocytes # 0.9 (Manual) Polychromasia 1+ Poikilocytosis 1+ Anisocytosis 1+ Prothrombin Time 17.7 #H Prothrombin Time 1.4 Ratio INR 1.45 International Normalized Ratio Activated 34.5 Partial Thrombop last Time Sodium Level 135 Potassium Level 5.4 H Chloride Level 103 Carbon Dioxide 15 L Level Anion Gap 17 H Blood Urea 24 H Nitrogen Creatinine 1.46 H Est Glomerular 48 L Filtrat Rate mL/min Glucose Level 217 Calcium Level 8.3 L Total Bilirubin 0.7 Direct Bilirubin 0.00 Indirect 0.7 Bilirubin Aspartate Amino 655 H Transf (AST/SGOT ) Alanine 603 H Aminotransferase (ALT/SGPT) Alkaline 149 H Phosphatase Troponin I 0.080 Total Protein 6.5 Albumin 3.6 Globulin 2.90 Albumin/Globulin 1.24 Ratio Bedside Glucose 204 POC Venous 6.3 *H Lactate Blood Gas Blood arterial Specimen Source Arterial Blood 04/20/2019 11:00 Date Drawn :43 PM Arterial Blood 7.110 *L pH (Temp corrected) Arterial Blood 46.8 H pCO2 (Temp correct) Arterial Blood 99.1 pO2 (Temp corrected) Arterial Blood 14.5 L HCO3 Arterial Blood -14.7 L Base Excess Arterial Blood 95.2 Oxygen Saturatio n Сергей Test N/A Arterial Blood Right Brachial Gas Puncture Site Arterial 0.8 Blood Carboxyhem oglobin Arterial Blood 0.4 Methemoglobin Blood Gas A-a O2 567.1 H Differential Oxyhemoglobin 94.1 Percent Blood Gas 37.0 Temperature Blood Gas 16.0 Respiration Rate Blood Gas Actual 16 Respiration Rate Blood Gas VENT - AC Modality FiO2 100.0 Blood Gas Tidal 500.0 Volume Blood Gas Low 5.0 PEEP Setting Blood Gas 39.0 Inspiratory Pressure Blood Gas Kylah BEASLEY MD Critical Value Read Back Blood Gas KM Notified Whom Blood Gas 04/20/2019 11:12 Notified Time :33 PM Test 04/20/19 23:11 04/21/19 00:03 04/21/19 00:42 04/21/19 01:18 Urine Color YELLOW Urine Clarity TURBID A Urine pH 5.0 Urine Specific 1.020 [place] Urine Ketones NEGATIVE Urine Nitrite NEGATIVE Urine Bilirubin NEGATIVE Urine 2+ H Urobilinogen Urine Leukocyte NEGATIVE Esterase Urine 31 H Microscopic RBC Urine 0 Microscopic WBC Urine Squamous FEW Epithelial Cells Urine Bacteria FEW A Urine Hyaline FEW A Casts Urine Mucus MANY A Urine Hemoglobin 1+ H Urine Glucose 1+ H Urine Total 3+ H Protein Blood Gas Blood arterial Specimen Source Arterial Blood 04/21/2019 12:15 Date Drawn :06 AM Arterial Blood 7.103 *L pH (Temp corrected) Arterial Blood 50.7 H pCO2 (Temp correct) Arterial Blood 94.2 pO2 (Temp corrected) Arterial Blood 15.5 L HCO3 Arterial Blood -14.1 L Base Excess Arterial Blood 94.3 L Oxygen Saturatio n Сергей Test ACCEPTAB Arterial Blood Right Radial Gas Puncture Site Arterial 0.7 Blood Carboxyhem oglobin Arterial Blood 0.3 Methemoglobin Blood Gas A-a O2 568.1 H Differential Oxyhemoglobin 93.4 Percent Blood Gas 37.0 Temperature Blood Gas 16.0 Respiration Rate Blood Gas Actual 16 Respiration Rate Blood Gas VENT - AC Modality FiO2 100.0 Blood Gas Tidal 500.0 Volume Blood Gas Low 5.0 PEEP Setting Blood Gas Chantal LAWSON MD Critical Value Read Back Blood Gas Notified Whom Blood Gas 04/21/2019 12:26 Notified Time :44 AM White Blood 20.4 H Count Red Blood Count 4.20 L Hemoglobin 12.4 L Hematocrit 39.9 L Mean Corpuscular 95.0 Volume Mean Corpuscular 29.5 Hemoglobin Mean Corpuscular 31.1 L Hemoglobin Sharon nt Red Cell 14.0 Distribution Width Platelet Count 197 Mean Platelet 10.1 Volume Immature 1.600 H Granulocytes % Neutrophils % 85.8 H Lymphocytes % 4.9 L Monocytes % 7.1 Eosinophils % 0.3 Basophils % 0.3 Nucleated Red 0.0 Blood Cells % Immature 0.330 H Granulocytes # Neutrophils # 17.5 H Lymphocytes # 1.0 Monocytes # 1.5 H Eosinophils # 0.1 Basophils # 0.1 Nucleated Red 0.0 Blood Cells # Prothrombin Time 20.2 H Prothrombin Time 1.6 Ratio INR 1.71 International Normalized Ratio Activated 32.4 Partial Thrombop last Time Sodium Level 135 Potassium Level 5.5 H Chloride Level 109 Carbon Dioxide 20 L Level Anion Gap 6 # Blood Urea 27 H Nitrogen Creatinine 1.45 H Est Glomerular 48 L Filtrat Rate mL/min Glucose Level 164 Hemoglobin A1c 6.7 H Lactic Acid 2.1 *H Level Calcium Level 7.0 L Phosphorus Level 7.1 H Magnesium Level 2.2 Total Bilirubin 0.8 Direct Bilirubin 0.30 #H Indirect 0.5 Bilirubin Aspartate Amino 948 H Transf (AST/SGOT ) Alanine 785 H Aminotransferase (ALT/SGPT) Alkaline 158 H Phosphatase Troponin I 0.144 *H Total Protein 4.8 #L Albumin 2.5 #L Globulin 2.30 Albumin/Globulin 1.08 Ratio Bedside Glucose 159 Test 04/21/19 03:48 04/21/19 04:30 04/21/19 04:40 04/21/19 06:00 Bedside Glucose 158 Sodium Level 137 Potassium Level 4.8 Chloride Level 110 Carbon Dioxide 19 L Level Anion Gap 8 Blood Urea 31 H Nitrogen Creatinine 1.30 H Est Glomerular 55 L Filtrat Rate mL/min Glucose Level 176 Calcium Level 7.1 L White Blood 14.5 #H Count Red Blood Count 4.44 L Hemoglobin 13.0 L Hematocrit 41.5 L Mean Corpuscular 93.5 Volume Mean Corpuscular 29.3 Hemoglobin Mean Corpuscular 31.3 L Hemoglobin Sharon nt Red Cell 14.0 Distribution Width Platelet Count 151 # Mean Platelet 10.2 Volume Immature 1.000 H Granulocytes % Neutrophils % 89.2 H Lymphocytes % 3.8 L Monocytes % 5.7 Eosinophils % 0.1 Basophils % 0.2 Nucleated Red 0.0 Blood Cells % Immature 0.150 H Granulocytes # Neutrophils # 13.0 H Lymphocytes # 0.6 L Monocytes # 0.8 Eosinophils # 0.0 Basophils # 0.0 Nucleated Red 0.0 Blood Cells # Lactic Acid 1.5 Level Phosphorus Level 5.4 H Magnesium Level 2.3 Blood Gas Blood arterial Specimen Source Arterial Blood 04/21/2019 6:00: Date Drawn 33 AM Arterial Blood 7.296 *L pH (Temp corrected) Arterial Blood 32.8 L pCO2 (Temp correct) Arterial Blood 69.9 L pO2 (Temp corrected) Arterial Blood 16.4 L HCO3 Arterial Blood -10.2 L Base Excess Arterial Blood 96.0 Oxygen Saturatio n Сергей Test ACCEPTAB Arterial Blood Left Radial Gas Puncture Site Arterial 0 Blood Carboxyhem oglobin Arterial Blood 0.2 Methemoglobin Blood Gas A-a O2 619.5 H Differential Oxyhemoglobin 95.8 Percent Blood Gas 33.1 Temperature Blood Gas 20.0 Respiration Rate Blood Gas Actual 21 Respiration Rate Blood Gas VENT - AC Modality FiO2 100.0 Blood Gas Tidal 500.0 Volume Blood Gas Low 5.0 PEEP Setting Blood Gas DPATEL RN Critical Value Read Back Blood Gas MA Notified Whom Blood Gas 04/21/2019 6:18: Notified Time 25 AM Medications Medications Current Medications Sodium Chloride 1,000 ml @ 100 mls/hr Q10H IV Last administered on 04/21/19at 01:16; Admin Dose 100 MLS/HR; Start 04/20/19 at 23:30 Ondansetron HCl (Zofran Inj) 4 mg Q6H PRN IV NAUSEA AND/OR VOMITING; Start 04/20/19 at 23:30 Albuterol (Ventolin Hfa) 4 puff Q2H RESP THERAPY PRN INH SHORTNESS OF BREATH; Start 04/20/19 at 23:30 Ipratropium Benton (Atrovent Hfa) 4 puff Q2H RESP THERAPY PRN INH SHORTNESS OF BREATH; Start 04/20/19 at 23:30 Acetaminophen (Tylenol Liquid) 650 mg Q6H PRN NGT PAIN LEVEL 1-3 OR FEVER; Start 04/20/19 at 23:30 Famotidine (Pepcid Iv) 20 mg Q12 IV Last administered on 04/21/19at 00:28; Admin Dose 20 MG; Start 04/20/19 at 23:30 Norepinephrine 16 mg/Dextrose 250 ml @ 0.94 mls/hr TITRATE IV ; Start 04/21/19 at 00:00 Vecuronium Benton 100 mg/ Dextrose 100 ml @ 6 mls/hr [id number] ONCE IV Last administered on 04/21/19at 06:17; Admin Dose 6 MLS/HR; Start 04/21/19 at 00:03; Stop 04/21/19 at 16:42 Acetaminophen (Tylenol Liquid) 650 mg Q8 NGT ; Start 04/21/19 at 06:00 Buspirone HCl (Buspar) 30 mg Q8 PO ; Start 04/21/19 at 06:00 Eye Lubricant (Artificial Tears Oph) 2 drop Q6H BOTH EYES Last administered on 04/21/19 05:47; Admin Dose 2 DROP; Start 04/21/19 at 06:00 Eye Lubricant (Akwa Oint) 1 applic Q6 BOTH EYES Last administered on 04/21/19 05:47; Admin Dose 1 APPLIC; Start 04/21/19 at 06:00 Meperidine HCl (Demerol) 12.5 mg Q2H PRN IV shivering; Start 04/21/19 at 01:00 Propofol 100 ml @ 3 mls/hr TITRATE PRN IV AGITATION Last administered on 04/21/19at 01:42; Admin Dose 3 MLS/HR; Start 04/21/19 at 01:30 Fentanyl 100 ml @ 2.5 mls/hr TITRATE PRN IV PAIN Last administered on 04/21/19 06:20; Admin Dose 2.5 MLS/HR; Start 04/21/19 at 02:00 Vancomycin HCl (Vanco Iv Per Pharmacy) VANCOMYCIN PER PHARMACY PER PROTOCOL XX ; Start 04/21/19 at 02:30 Piperacillin Sod/ Tazobactam Sod 100 ml @ 200 mls/hr Q6 IVPB Last administered on 04/21/19 05:47; Admin Dose 200 MLS/HR; Start 04/21/19 at 06:00 Vancomycin HCl 1.5 gm/Sodium Chloride 250 ml @ 83.333 mls/ hr Q24H IVPB ; Start 04/21/19 at 20:00 ROSI MAZARIEGOS MD Apr 21, 2019 07:37
[2019-04-21] MEDS: ASPIRIN 300 MG SUPP PR SCH (08:33)
[2019-04-21] MEDS: CLOPIDOGREL 75 MG TAB NGT SCH (08:52)
[2019-04-21] MEDS ORDERED: NA BICARBONATE 8.4% 50 ML SYG ONE (09:30)
[2019-04-21] MEDS ORDERED: NA BICARBONATE 8.4% 50 ML SYG IV STA (09:33)
--- NOTE | 2019-04-21 09:34 | CONS ---
Assessment/Plan Assessment/Plan Assessment/Plan (Daily) Chest x-ray showing pulmonary edema with cardiomegaly. Ventilator setting; AC of 20, tidal volume 500, PEEP of 5, 100% FiO2. Patient is currently on propofol 10 mics per kilogram per minute, fentanyl 25 mics per hour. Assessment and recommendations; next 1. Patient admitted with cardiac arrest likely from underlying CHF with long CPR done approximately lasting 30 minutes. Currently on hypothermia protocol. 2. Chronic renal insufficiency. 3. Difficult to rule out some element of aspiration pneumonia. Patient currently on appropriate empiric antimicrobial coverage. 4. History of cardiac arrhythmia, status post pacemaker placement in the past. 5. History of prior CABG. 6. Acute hepatic injury likely from hepatic congestion from cardiac failure. 7. Mild metabolic acidosis. Likely from hypoperfusion. Continue current supportive care. Administer sodium bicarbonate. Obtain follow -up chest x-ray 24 hours. Mental status to be assessed once patient is off hypothermia protocol. Prognosis is guarded. 40 minutes of critical care time was spent evaluating patient. Consultation Date/Type/Reason Admit Date/Time Date of Consultation: Apr 21, 2019 Type of Consult Pulmonary/critical care Patient is a 68-year-old gentleman who was brought into the hospital after having a cardiac arrest event at home. Long CPR was done lasting approximately 30 minutes. Patient currently is intubated and is on hypothermia protocol. Past medical history; 1. History of likely underlying cardiomyopathy with CHF. 2. Prior CABG. 3. Apparent chronic mild renal insufficiency as well. 4. Possibly COPD as well based upon chest x-ray. 5. History of pacemaker placement in the past. Medications; reviewed. Allergies; none. Family history; patient is . Occupational history; not available. Social history; not available. Review of systems; unable to be obtained. General exam; elderly male, orally intubated, sedated. On hypothermia protocol. Date/Time of Note DATE: 04/21/19 TIME: 09:29 Past Medical History Home Meds Reported Medications Atorvastatin* (Atorvastatin*) 40 Mg Tablet, 40 MG PO QHS, #30 TAB 04/21/19 Clopidogrel Bisulfate (Clopidogrel) 75 Mg Tablet, 75 MG PO DAILY, #30 TAB 04/21/19 Amiodarone Hcl* (Amiodarone Hcl*) 200 Mg Tablet, 200 MG PO BID, #60 TAB 04/21/19 Aspirin (Low Dose Aspirin) 81 Mg Tablet.dr, 81 MG PO DAILY, #30 TAB 03/21/19 Nitroglycerin* (Nitrostat*) 0.4 Mg Tab.subl, 0.4 MG SL Q5MIN PRN for CHEST PAIN, BOTTLE 03/21/19 Lisinopril* (Lisinopril*) 5 Mg Tablet, 5 MG PO BID, #30 TAB 03/21/19 Cyanocobalamin* (Vitamin B12*) 500 Mcg Tab, 2000 MCG PO DAILY, TAB 03/21/19 Bisoprolol Fumarate* (Zebeta*) 5 Mg Tablet, 5 MG PO BID, TAB 03/21/19 Discontinued Reported Medications Simvastatin* (Zocor*) 40 Mg Tablet, 40 MG PO QHS, #30 TAB 03/21/19 Medications Current Medications Sodium Chloride 1,000 ml @ 100 mls/hr Q10H IV Last administered on 04/21/19at 01:16; Admin Dose 100 MLS/HR; Start 04/20/19 at 23:30 Ondansetron HCl (Zofran Inj) 4 mg Q6H PRN IV NAUSEA AND/OR VOMITING; Start 04/20/19 at 23:30 Albuterol (Ventolin Hfa) 4 puff Q2H RESP THERAPY PRN INH SHORTNESS OF BREATH; Start 04/20/19 at 23:30 Ipratropium [place] (Atrovent Hfa) 4 puff Q2H RESP THERAPY PRN INH SHORTNESS OF BREATH; Start 04/20/19 at 23:30 Acetaminophen (Tylenol Liquid) 650 mg Q6H PRN NGT PAIN LEVEL 1-3 OR FEVER; Start 04/20/19 at 23:30 Famotidine (Pepcid Iv) 20 mg Q12 IV Last administered on 04/21/19at 08:33; Admin Dose 20 MG; Start 04/20/19 at 23:30 Norepinephrine 16 mg/Dextrose 250 ml @ 0.94 mls/hr TITRATE IV ; Start 04/21/19 at 00:00 Vecuronium [place] 100 mg/ Dextrose 100 ml @ 6 mls/hr [id number] ONCE IV Last administered on 04/21/19at 06:17; Admin Dose 6 MLS/HR; Start 04/21/19 at 00:03; Stop 04/21/19 at 16:42 Acetaminophen (Tylenol Liquid) 650 mg Q8 NGT ; Start 04/21/19 at 06:00 Buspirone HCl (Buspar) 30 mg Q8 PO ; Start 04/21/19 at 06:00 Eye Lubricant (Artificial Tears Oph) 2 drop Q6H BOTH EYES Last administered on 04/21/19 05:47; Admin Dose 2 DROP; Start 04/21/19 at 06:00 Eye Lubricant (Akwa Oint) 1 applic Q6 BOTH EYES Last administered on 04/21/19 05:47; Admin Dose 1 APPLIC; Start 04/21/19 at 06:00 Meperidine HCl (Demerol) 12.5 mg Q2H PRN IV shivering; Start 04/21/19 at 01:00 Propofol 100 ml @ 3 mls/hr TITRATE PRN IV AGITATION Last administered on 04/21/19 01:42; Admin Dose 3 MLS/HR; Start 04/21/19 at 01:30 Fentanyl 100 ml @ 2.5 mls/hr TITRATE PRN IV PAIN Last administered on 04/21/19 06:20; Admin Dose 2.5 MLS/HR; Start 04/21/19 at 02:00 Vancomycin HCl (Vanco Iv Per Pharmacy) VANCOMYCIN PER PHARMACY PER PROTOCOL XX ; Start 04/21/19 at 02:30 Piperacillin Sod/ Tazobactam Sod 100 ml @ 200 mls/hr Q6 IVPB Last administered on 04/21/19 05:47; Admin Dose 200 MLS/HR; Start 04/21/19 at 06:00 Vancomycin HCl 1.5 gm/Sodium Chloride 250 ml @ 83.333 mls/ hr Q24H IVPB ; Start 04/21/19 at 20:00 Aspirin (Aspirin) 300 mg DAILY CA Last administered on 04/21/19 08:33; Admin Dose 300 MG; Start 04/21/19 at 09:00 Clopidogrel Bisulfate (plaVIX) 75 mg DAILY NGT Last administered on 04/21/19 08:52; Admin Dose 75 MG; Start 04/21/19 at 09:00 Allergies: Coded Allergies: No Known Allergy (Unverified , 03/21/19) Past Surgical History Past Surgical Hx: other Social History Alcohol Use: none Smoking Status: Former smoker (recently quit in the past few weeks) Drug Use: none Exam/Review of Systems Exam Vitals Vital Signs Date Temp Pulse Resp B/P (MAP) Pulse Ox O2 O2 Flow FiO2 Time Delivery Rate 04/21/19 92.0 50 20 128/85 100 09:00 (99) 04/21/19 100 08:00 04/21/19 Mechanical 00:40 Ventilator Intake and Output 04/20/19 04/20/19 04/21/19 1515:00 23:00 07:00 IntakeIntake Total 797.125 ml OutputOutput Total 450 ml BalanceBalance 347.125 ml Exam H ENT exam; supple neck, positive JVD. No lymphadenopathy. Midline trachea. No thyromegaly. Patient has bilateral surgical pupils. Dentition is fair. Nasogastric tube in place. Orally intubated. Chest exam; diminished breath sounds bilaterally. S1-S2 audible, no murmurs. There is a pacemaker in the left chest wall. There is a well-healed sternal scar. Abdomen exam; soft, Bowel sounds are absent. No organomegaly felt. Extremity exam; no peripheral edema. Pulses 1+. MOBILE TESTER exam; patient is sedated. Results Result Diagram: 04/21/19 0440 04/21/19 0430 Results 24hrs Laboratory Tests Test 04/20/19 21:25 04/20/19 21:28 04/20/19 21:38 04/20/19 22:00 White Blood 18.9 #H Count Red Blood Count 4.58 L Hemoglobin 13.7 L Hematocrit 43.8 Mean Corpuscular 95.6 Volume Mean Corpuscular 29.9 Hemoglobin Mean Corpuscular 31.3 L Hemoglobin Sharon nt Red Cell 13.9 Distribution Width Platelet Count 222 # Mean Platelet 10.8 H Volume Immature 6.400 H Granulocytes % Segmented 73 Neutrophils % (Manual) Band Neutrophils 4 % (Manual) Lymphocytes % 10 L (Manual) Reactive 5 H Lymphocytes % (Manual) Monocytes % 5 (Manual) Eosinophils % 3 (Manual) Nucleated Red 1 H Blood Cells % Immature 1.210 H Granulocytes # Neutrophils # 13.9 H (Manual) Band Neutrophils 0.7 H # Lymphocytes 1.8 (Manual) Reactive 0.9 H Lymphocytes # Monocytes # 0.9 (Manual) Polychromasia 1+ Poikilocytosis 1+ Anisocytosis 1+ Prothrombin Time 17.7 #H Prothrombin Time 1.4 Ratio INR 1.45 International Normalized Ratio Activated 34.5 Partial Thrombop last Time Sodium Level 135 Potassium Level 5.4 H Chloride Level 103 Carbon Dioxide 15 L Level Anion Gap 17 H Blood Urea 24 H Nitrogen Creatinine 1.46 H Est Glomerular 48 L Filtrat Rate mL/min Glucose Level 217 Calcium Level 8.3 L Total Bilirubin 0.7 Direct Bilirubin 0.00 Indirect 0.7 Bilirubin Aspartate Amino 655 H Transf (AST/SGOT ) Alanine 603 H Aminotransferase (ALT/SGPT) Alkaline 149 H Phosphatase Troponin I 0.080 Total Protein 6.5 Albumin 3.6 Globulin 2.90 Albumin/Globulin 1.24 Ratio Bedside Glucose 204 POC Venous 6.3 *H Lactate Blood Gas Blood arterial Specimen Source Arterial Blood 04/20/2019 11:00 Date Drawn :43 PM Arterial Blood 7.110 *L pH (Temp corrected) Arterial Blood 46.8 H pCO2 (Temp correct) Arterial Blood 99.1 pO2 (Temp corrected) Arterial Blood 14.5 L HCO3 Arterial Blood -14.7 L Base Excess Arterial Blood 95.2 Oxygen Saturatio n Сергей Test N/A Arterial Blood Right Brachial Gas Puncture Site Arterial 0.8 Blood Carboxyhem oglobin Arterial Blood 0.4 Methemoglobin Blood Gas A-a O2 567.1 H Differential Oxyhemoglobin 94.1 Percent Blood Gas 37.0 Temperature Blood Gas 16.0 Respiration Rate Blood Gas Actual 16 Respiration Rate Blood Gas VENT - AC Modality FiO2 100.0 Blood Gas Tidal 500.0 Volume Blood Gas Low 5.0 PEEP Setting Blood Gas 39.0 Inspiratory Pressure Blood Gas Kylah BEASLEY MD Critical Value Read Back Blood Gas KM Notified Whom Blood Gas 04/20/2019 11:12 Notified Time :33 PM Test 04/20/19 23:11 04/21/19 00:03 04/21/19 00:42 04/21/19 01:18 Urine Color YELLOW Urine Clarity TURBID A Urine pH 5.0 Urine Specific 1.020 [place] Urine Ketones NEGATIVE Urine Nitrite NEGATIVE Urine Bilirubin NEGATIVE Urine 2+ H Urobilinogen Urine Leukocyte NEGATIVE Esterase Urine 31 H Microscopic RBC Urine 0 Microscopic WBC Urine Squamous FEW Epithelial Cells Urine Bacteria FEW A Urine Hyaline FEW A Casts Urine Mucus MANY A Urine Hemoglobin 1+ H Urine Glucose 1+ H Urine Total 3+ H Protein Blood Gas Blood arterial Specimen Source Arterial Blood 04/21/2019 12:15 Date Drawn :06 AM Arterial Blood 7.103 *L pH (Temp corrected) Arterial Blood 50.7 H pCO2 (Temp correct) Arterial Blood 94.2 pO2 (Temp corrected) Arterial Blood 15.5 L HCO3 Arterial Blood -14.1 L Base Excess Arterial Blood 94.3 L Oxygen Saturatio n Сегрей Test ACCEPTAB Arterial Blood Right Radial Gas Puncture Site Arterial 0.7 Blood Carboxyhem oglobin Arterial Blood 0.3 Methemoglobin Blood Gas A-a O2 568.1 H Differential Oxyhemoglobin 93.4 Percent Blood Gas 37.0 Temperature Blood Gas 16.0 Respiration Rate Blood Gas Actual 16 Respiration Rate Blood Gas VENT - AC Modality FiO2 100.0 Blood Gas Tidal 500.0 Volume Blood Gas Low 5.0 PEEP Setting Blood Gas Chantal LAWSON MD Critical Value Read Back Blood Gas Notified Whom Blood Gas 04/21/2019 12:26 Notified Time :44 AM White Blood 20.4 H Count Red Blood Count 4.20 L Hemoglobin 12.4 L Hematocrit 39.9 L Mean Corpuscular 95.0 Volume Mean Corpuscular 29.5 Hemoglobin Mean Corpuscular 31.1 L Hemoglobin Sharon nt Red Cell 14.0 Distribution Width Platelet Count 197 Mean Platelet 10.1 Volume Immature 1.600 H Granulocytes % Neutrophils % 85.8 H Lymphocytes % 4.9 L Monocytes % 7.1 Eosinophils % 0.3 Basophils % 0.3 Nucleated Red 0.0 Blood Cells % Immature 0.330 H Granulocytes # Neutrophils # 17.5 H Lymphocytes # 1.0 Monocytes # 1.5 H Eosinophils # 0.1 Basophils # 0.1 Nucleated Red 0.0 Blood Cells # Prothrombin Time 20.2 H Prothrombin Time 1.6 Ratio INR 1.71 International Normalized Ratio Activated 32.4 Partial Thrombop last Time Sodium Level 135 Potassium Level 5.5 H Chloride Level 109 Carbon Dioxide 20 L Level Anion Gap 6 # Blood Urea 27 H Nitrogen Creatinine 1.45 H Est Glomerular 48 L Filtrat Rate mL/min Glucose Level 164 Hemoglobin A1c 6.7 H Lactic Acid 2.1 *H Level Calcium Level 7.0 L Phosphorus Level 7.1 H Magnesium Level 2.2 Total Bilirubin 0.8 Direct Bilirubin 0.30 #H Indirect 0.5 Bilirubin Aspartate Amino 948 H Transf (AST/SGOT ) Alanine 785 H Aminotransferase (ALT/SGPT) Alkaline 158 H Phosphatase Troponin I 0.144 *H Total Protein 4.8 #L Albumin 2.5 #L Globulin 2.30 Albumin/Globulin 1.08 Ratio Bedside Glucose 159 Test 04/21/19 03:48 04/21/19 04:30 04/21/19 04:40 04/21/19 06:00 Bedside Glucose 158 Sodium Level 137 Potassium Level 4.8 Chloride Level 110 Carbon Dioxide 19 L Level Anion Gap 8 Blood Urea 31 H Nitrogen Creatinine 1.30 H Est Glomerular 55 L Filtrat Rate mL/min Glucose Level 176 Calcium Level 7.1 L White Blood 14.5 #H Count Red Blood Count 4.44 L Hemoglobin 13.0 L Hematocrit 41.5 L Mean Corpuscular 93.5 Volume Mean Corpuscular 29.3 Hemoglobin Mean Corpuscular 31.3 L Hemoglobin Sharon nt Red Cell 14.0 Distribution Width Platelet Count 151 # Mean Platelet 10.2 Volume Immature 1.000 H Granulocytes % Neutrophils % 89.2 H Lymphocytes % 3.8 L Monocytes % 5.7 Eosinophils % 0.1 Basophils % 0.2 Nucleated Red 0.0 Blood Cells % Immature 0.150 H Granulocytes # Neutrophils # 13.0 H Lymphocytes # 0.6 L Monocytes # 0.8 Eosinophils # 0.0 Basophils # 0.0 Nucleated Red 0.0 Blood Cells # Lactic Acid 1.5 Level Phosphorus Level 5.4 H Magnesium Level 2.3 Blood Gas Blood arterial Specimen Source Arterial Blood 04/21/2019 6:00: Date Drawn 33 AM Arterial Blood 7.296 *L pH (Temp corrected) Arterial Blood 32.8 L pCO2 (Temp correct) Arterial Blood 69.9 L pO2 (Temp corrected) Arterial Blood 16.4 L HCO3 Arterial Blood -10.2 L Base Excess Arterial Blood 96.0 Oxygen Saturatio n Сергей Test ACCEPTAB Arterial Blood Left Radial Gas Puncture Site Arterial 0 Blood Carboxyhem oglobin Arterial Blood 0.2 Methemoglobin Blood Gas A-a O2 619.5 H Differential Oxyhemoglobin 95.8 Percent Blood Gas 33.1 Temperature Blood Gas 20.0 Respiration Rate Blood Gas Actual 21 Respiration Rate Blood Gas VENT - AC Modality FiO2 100.0 Blood Gas Tidal 500.0 Volume Blood Gas Low 5.0 PEEP Setting Blood Gas DPATEL RN Critical Value Read Back Blood Gas MA Notified Whom Blood Gas 04/21/2019 6:18: Notified Time 25 AM Test 04/21/19 07:43 04/21/19 07:51 04/21/19 09:02 Bedside Glucose 129 145 Prothrombin Time 20.3 H Prothrombin Time 1.6 Ratio INR 1.73 International Normalized Ratio Activated 33.2 Partial Thrombop last Time Fibrinogen 385.0 Amylase Level 56 Lipase 74 Medications Medication Current Medications Sodium Chloride 1,000 ml @ 100 mls/hr Q10H IV Last administered on 04/21/19at 01:16; Admin Dose 100 MLS/HR; Start 04/20/19 at 23:30 Ondansetron HCl (Zofran Inj) 4 mg Q6H PRN IV NAUSEA AND/OR VOMITING; Start 04/20/19 at 23:30 Albuterol (Ventolin Hfa) 4 puff Q2H RESP THERAPY PRN INH SHORTNESS OF BREATH; Start 04/20/19 at 23:30 Ipratropium [place] (Atrovent Hfa) 4 puff Q2H RESP THERAPY PRN INH SHORTNESS OF BREATH; Start 04/20/19 at 23:30 Acetaminophen (Tylenol Liquid) 650 mg Q6H PRN NGT PAIN LEVEL 1-3 OR FEVER; Start 04/20/19 at 23:30 Famotidine (Pepcid Iv) 20 mg Q12 IV Last administered on 04/21/19at 08:33; Admin Dose 20 MG; Start 04/20/19 at 23:30 Norepinephrine 16 mg/Dextrose 250 ml @ 0.94 mls/hr TITRATE IV ; Start 04/21/19 at 00:00 Vecuronium [place] 100 mg/ Dextrose 100 ml @ 6 mls/hr [id number] ONCE IV Last ad ministered on 04/21/19at 06:17; Admin Dose 6 MLS/HR; Start 04/21/19 at 00:03; Stop 04/21/19 at 16:42 Acetaminophen (Tylenol Liquid) 650 mg Q8 NGT ; Start 04/21/19 at 06:00 Buspirone HCl (Buspar) 30 mg Q8 PO ; Start 04/21/19 at 06:00 Eye Lubricant (Artificial Tears Oph) 2 drop Q6H BOTH EYES Last administered on 04/21/19at 05:47; Admin Dose 2 DROP; Start 04/21/19 at 06:00 Eye Lubricant (Akwa Oint) 1 applic Q6 BOTH EYES Last administered on 04/21/19at 05:47; Admin Dose 1 APPLIC; Start 04/21/19 at 06:00 Meperidine HCl (Demerol) 12.5 mg Q2H PRN IV shivering; Start 04/21/19 at 01:00 Propofol 100 ml @ 3 mls/hr TITRATE PRN IV AGITATION Last administered on 04/21/19at 01:42; Admin Dose 3 MLS/HR; Start 04/21/19 at 01:30 Fentanyl 100 ml @ 2.5 mls/hr TITRATE PRN IV PAIN Last administered on 04/21/19a t 06:20; Admin Dose 2.5 MLS/HR; Start 04/21/19 at 02:00 Vancomycin HCl (Vanco Iv Per Pharmacy) VANCOMYCIN PER PHARMACY PER PROTOCOL XX ; Start 04/21/19 at 02:30 Piperacillin Sod/ Tazobactam Sod 100 ml @ 200 mls/hr Q6 IVPB Last administered on 04/21/19at 05:47; Admin Dose 200 MLS/HR; Start 04/21/19 at 06:00 Vancomycin HCl 1.5 gm/Sodium Chloride 250 ml @ 83.333 mls/ hr Q24H IVPB ; Start 04/21/19 at 20:00 Aspirin (Aspirin) 300 mg DAILY [place] Last administered on 04/21/19at 08:33; Admin Dose 300 MG; Start 04/21/19 at 09:00 Clopidogrel Bisulfate (plaVIX) 75 mg DAILY NGT Last administered on 04/21/19at 08:52; Admin Dose 75 MG; Start 04/21/19 at 09:00 JOSIE MAS 13, 2019 09:34
--- NOTE | 2019-04-21 12:42 | PN ---
Date/Time of Note Date/Time of Note DATE: 04/21/19 TIME: 12:39 Assessment/Plan VTE Prophylaxis Risk score (from Ns)>0 risk: 8 SCD applied (from Ns): Yes Pharmacological prophylaxis: heparin Lines/Catheters IV Catheter Type (from Nrsg): Central Line Central line still needed: Yes Urinary Cath still in place: Yes Reason Cath still needed: urinary retention Assessment/Plan Hospital Course Intubated, sedated RRR Clear Soft nt nd A/P: 68 yo male with CAD, systolic CHF, ischemic cardiomyopathy VF s/p ICD previous presented after cardiac arrest with CPR and ROSC in the field. Now undergoing therapuetic hypothermia - Unclear cause of arrest but likely arrhymthia vs ACS - Continue theraputic hypothermia protocol Cardiogenic shock: - Vasopressors as needed - Empiric abx as well in case sepsis present CAD: - Asprin, plavix, statin Acute repsiratory failure: - MV per pulmonary Likely anoxic brain injury - Assess when off of sedation Goals of care to be addressed pending assessment of neurologic status Result Diagram: 04/21/19 0440 04/21/19 0430 Results 24hrs Laboratory Tests Test 04/20/19 21:25 04/20/19 21:28 04/20/19 21:38 04/20/19 22:00 White Blood 18.9 #H Count Red Blood Count 4.58 L Hemoglobin 13.7 L Hematocrit 43.8 Mean 95.6 Corpuscular Volume Mean 29.9 Corpuscular Hemoglobin Mean 31.3 L Corpuscular Hemoglobin Conc ent Red Cell 13.9 Distribution Width Platelet Count 222 # Mean Platelet 10.8 H Volume Immature 6.400 H Granulocytes % Segmented 73 Neutrophils % (Manual) Band 4 Neutrophils % (Manual) Lymphocytes % 10 L (Manual) Reactive 5 H Lymphocytes % (Manual) Monocytes % 5 (Manual) Eosinophils % 3 (Manual) Nucleated Red 1 H Blood Cells % Immature 1.210 H Granulocytes # Neutrophils # 13.9 H (Manual) Band 0.7 H Neutrophils # Lymphocytes 1.8 (Manual) Reactive 0.9 H Lymphocytes # Monocytes # 0.9 (Manual) Polychromasia 1+ Poikilocytosis 1+ Anisocytosis 1+ Prothrombin 17.7 #H Time Prothrombin 1.4 Time Ratio INR 1.45 International Normalized Rati o Activated 34.5 Partial Thrombo plast Time Sodium Level 135 Potassium Level 5.4 H Chloride Level 103 Carbon Dioxide 15 L Level Anion Gap 17 H Blood Urea 24 H Nitrogen Creatinine 1.46 H Est Glomerular 48 L Filtrat Rate mL/min Glucose Level 217 Calcium Level 8.3 L Total Bilirubin 0.7 Direct 0.00 Bilirubin Indirect 0.7 Bilirubin Aspartate Amino 655 H Transf (AST/SGO T) Alanine 603 H Aminotransferas e (ALT/SGPT) Alkaline 149 H Phosphatase Troponin I 0.080 Total Protein 6.5 Albumin 3.6 Globulin 2.90 Albumin/Globuli 1.24 n Ratio Bedside Glucose 204 POC Venous 6.3 *H Lactate Blood Gas Blood Specimen arterial Source Arterial Blood 04/20/2019 11:0 Date Drawn 0:43 PM Arterial Blood 7.110 *L pH (Temp corrected ) Arterial Blood 46.8 H pCO2 (Temp correct) Arterial Blood 99.1 pO2 (Temp corrected ) Arterial Blood 14.5 L HCO3 Arterial Blood -14.7 L Base Excess Arterial Blood 95.2 Oxygen Saturati on Сергей Test N/A Arterial Blood Right Gas Brachial Puncture Site Arterial 0.8 Blood Carboxyhe moglobin Arterial Blood 0.4 Methemoglobin Blood Gas A-a 567.1 H O2 Differential Oxyhemoglobin 94.1 Percent Blood Gas 37.0 Temperature Blood Gas 16.0 Respiration Rate Blood Gas 16 Actual Respiration Rat e Blood Gas VENT - AC Modality FiO2 100.0 Blood Gas Tidal 500.0 Volume Blood Gas Low 5.0 PEEP Setting Blood Gas 39.0 Inspiratory Pressure Blood Gas Kylah BEASLEY MD Critical Value Read Back Blood Gas KM Notified Whom Blood Gas 04/20/2019 11:1 Notified Time 2:33 PM Test 04/20/19 23:11 04/21/19 00:03 04/21/19 00:42 04/21/19 01:18 Urine Color YELLOW Urine Clarity TURBID A Urine pH 5.0 Urine Specific 1.020 [place] Urine Ketones NEGATIVE Urine Nitrite NEGATIVE Urine Bilirubin NEGATIVE Urine 2+ H Urobilinogen Urine Leukocyte NEGATIVE Esterase Urine 31 H Microscopic RBC Urine 0 Microscopic WBC Urine Squamous FEW Epithelial Cell s Urine Bacteria FEW A Urine Hyaline FEW A Casts Urine Mucus MANY A Urine 1+ H Hemoglobin Urine Glucose 1+ H Urine Total 3+ H Protein Blood Gas Blood arterial Specimen Source Arterial Blood 04/21/2019 12:15 Date Drawn :06 AM Arterial Blood 7.103 *L pH (Temp corrected ) Arterial Blood 50.7 H pCO2 (Temp correct) Arterial Blood 94.2 pO2 (Temp corrected ) Arterial Blood 15.5 L HCO3 Arterial Blood -14.1 L Base Excess Arterial Blood 94.3 L Oxygen Saturati on Сергей Test ACCEPTAB Arterial Blood Right Radial Gas Puncture Site Arterial 0.7 Blood Carboxyhe moglobin Arterial Blood 0.3 Methemoglobin Blood Gas A-a 568.1 H O2 Differential Oxyhemoglobin 93.4 Percent Blood Gas 37.0 Temperature Blood Gas 16.0 Respiration Rate Blood Gas 16 Actual Respiration Rat e Blood Gas VENT - AC Modality FiO2 100.0 Blood Gas Tidal 500.0 Volume Blood Gas Low 5.0 PEEP Setting Blood Gas Chantal LAWSON MD Critical Value Read Back Blood Gas Notified Whom Blood Gas 04/21/2019 12:26 Notified Time :44 AM White Blood 20.4 H Count Red Blood Count 4.20 L Hemoglobin 12.4 L Hematocrit 39.9 L Mean 95.0 Corpuscular Volume Mean 29.5 Corpuscular Hemoglobin Mean 31.1 L Corpuscular Hemoglobin Conc ent Red Cell 14.0 Distribution Width Platelet Count 197 Mean Platelet 10.1 Volume Immature 1.600 H Granulocytes % Neutrophils % 85.8 H Lymphocytes % 4.9 L Monocytes % 7.1 Eosinophils % 0.3 Basophils % 0.3 Nucleated Red 0.0 Blood Cells % Immature 0.330 H Granulocytes # Neutrophils # 17.5 H Lymphocytes # 1.0 Monocytes # 1.5 H Eosinophils # 0.1 Basophils # 0.1 Nucleated Red 0.0 Blood Cells # Prothrombin 20.2 H Time Prothrombin 1.6 Time Ratio INR 1.71 International Normalized Rati o Activated 32.4 Partial Thrombo plast Time Sodium Level 135 Potassium Level 5.5 H Chloride Level 109 Carbon Dioxide 20 L Level Anion Gap 6 # Blood Urea 27 H Nitrogen Creatinine 1.45 H Est Glomerular 48 L Filtrat Rate mL/min Glucose Level 164 Hemoglobin A1c 6.7 H Lactic Acid 2.1 *H Level Calcium Level 7.0 L Phosphorus 7.1 H Level Magnesium Level 2.2 Total Bilirubin 0.8 Direct 0.30 #H Bilirubin Indirect 0.5 Bilirubin Aspartate Amino 948 H Transf (AST/SGO T) Alanine 785 H Aminotransferas e (ALT/SGPT) Alkaline 158 H Phosphatase Troponin I 0.144 *H Total Protein 4.8 #L Albumin 2.5 #L Globulin 2.30 Albumin/Globuli 1.08 n Ratio Bedside Glucose 159 Test 04/21/19 03:48 04/21/19 04:30 04/21/19 04:37 04/21/19 04:40 Bedside Glucose 158 Sodium Level 137 Potassium Level 4.8 Chloride Level 110 Carbon Dioxide 19 L Level Anion Gap 8 Blood Urea 31 H Nitrogen Creatinine 1.30 H Est Glomerular 55 L Filtrat Rate mL/min Glucose Level 176 Calcium Level 7.1 L Procalcitonin 2.96 H White Blood 14.5 #H Count Red Blood Count 4.44 L Hemoglobin 13.0 L Hematocrit 41.5 L Mean 93.5 Corpuscular Volume Mean 29.3 Corpuscular Hemoglobin Mean 31.3 L Corpuscular Hemoglobin Conc ent Red Cell 14.0 Distribution Width Platelet Count 151 # Mean Platelet 10.2 Volume Immature 1.000 H Granulocytes % Neutrophils % 89.2 H Lymphocytes % 3.8 L Monocytes % 5.7 Eosinophils % 0.1 Basophils % 0.2 Nucleated Red 0.0 Blood Cells % Immature 0.150 H Granulocytes # Neutrophils # 13.0 H Lymphocytes # 0.6 L Monocytes # 0.8 Eosinophils # 0.0 Basophils # 0.0 Nucleated Red 0.0 Blood Cells # Lactic Acid 1.5 Level Phosphorus 5.4 H Level Magnesium Level 2.3 Test 04/21/19 06:00 04/21/19 07:43 04/21/19 07:51 04/21/19 09:02 Blood Gas Blood arterial Specimen Source Arterial Blood 04/21/2019 6:00: Date Drawn 33 AM Arterial Blood 7.296 *L pH (Temp corrected ) Arterial Blood 32.8 L pCO2 (Temp correct) Arterial Blood 69.9 L pO2 (Temp corrected ) Arterial Blood 16.4 L HCO3 Arterial Blood -10.2 L Base Excess Arterial Blood 96.0 Oxygen Saturati on Сергей Test ACCEPTAB Arterial Blood Left Radial Gas Puncture Site Arterial 0 Blood Carboxyhe moglobin Arterial Blood 0.2 Methemoglobin Blood Gas A-a 619.5 H O2 Differential Oxyhemoglobin 95.8 Percent Blood Gas 33.1 Temperature Blood Gas 20.0 Respiration Rate Blood Gas 21 Actual Respiration Rat e Blood Gas VENT - AC Modality FiO2 100.0 Blood Gas Tidal 500.0 Volume Blood Gas Low 5.0 PEEP Setting Blood Gas DPATEL RN Critical Value Read Back Blood Gas MA Notified Whom Blood Gas 04/21/2019 6:18: Notified Time 25 AM Bedside Glucose 129 145 Prothrombin 20.3 H Time Prothrombin 1.6 Time Ratio INR 1.73 International Normalized Rati o Activated 33.2 Partial Thrombo plast Time Fibrinogen 385.0 Amylase Level 56 Lipase 74 Test 04/21/19 12:16 Bedside Glucose 133 Subjective 24 Hr Interval Summary Free Text/Dictation Undergoing therapeutic hypothermia Exam/Review of Systems Exam Vitals Vital Signs Date Temp Pulse Resp B/P (MAP) Pulse Ox O2 O2 Flow FiO2 Time Delivery Rate 04/21/19 51 12:00 04/21/19 89.9 20 123/86 100 12:00 (98) 04/21/19 100 08:00 04/21/19 Mechanical 00:40 Ventilator Intake and Output 04/20/19 04/20/19 04/21/19 1515:00 23:00 07:00 IntakeIntake Total 797.125 ml OutputOutput Total 450 ml BalanceBalance 347.125 ml Results Results 24hrs Laboratory Tests Test 04/20/19 21:25 04/20/19 21:28 04/20/19 21:38 04/20/19 22:00 White Blood 18.9 #H Count Red Blood Count 4.58 L Hemoglobin 13.7 L Hematocrit 43.8 Mean 95.6 Corpuscular Volume Mean 29.9 Corpuscular Hemoglobin Mean 31.3 L Corpuscular Hemoglobin Conc ent Red Cell 13.9 Distribution Width Platelet Count 222 # Mean Platelet 10.8 H Volume Immature 6.400 H Granulocytes % Segmented 73 Neutrophils % (Manual) Band 4 Neutrophils % (Manual) Lymphocytes % 10 L (Manual) Reactive 5 H Lymphocytes % (Manual) Monocytes % 5 (Manual) Eosinophils % 3 (Manual) Nucleated Red 1 H Blood Cells % Immature 1.210 H Granulocytes # Neutrophils # 13.9 H (Manual) Band 0.7 H Neutrophils # Lymphocytes 1.8 (Manual) Reactive 0.9 H Lymphocytes # Monocytes # 0.9 (Manual) Polychromasia 1+ Poikilocytosis 1+ Anisocytosis 1+ Prothrombin 17.7 #H Time Prothrombin 1.4 Time Ratio INR 1.45 International Normalized Rati o Activated 34.5 Partial Thrombo plast Time Sodium Level 135 Potassium Level 5.4 H Chloride Level 103 Carbon Dioxide 15 L Level Anion Gap 17 H Blood Urea 24 H Nitrogen Creatinine 1.46 H Est Glomerular 48 L Filtrat Rate mL/min Glucose Level 217 Calcium Level 8.3 L Total Bilirubin 0.7 Direct 0.00 Bilirubin Indirect 0.7 Bilirubin Aspartate Amino 655 H Transf (AST/SGO T) Alanine 603 H Aminotransferas e (ALT/SGPT) Alkaline 149 H Phosphatase Troponin I 0.080 Total Protein 6.5 Albumin 3.6 Globulin 2.90 Albumin/Globuli 1.24 n Ratio Bedside Glucose 204 POC Venous 6.3 *H Lactate Blood Gas Blood Specimen arterial Source Arterial Blood 04/20/2019 11:0 Date Drawn 0:43 PM Arterial Blood 7.110 *L pH (Temp corrected ) Arterial Blood 46.8 H pCO2 (Temp correct) Arterial Blood 99.1 pO2 (Temp corrected ) Arterial Blood 14.5 L HCO3 Arterial Blood -14.7 L Base Excess Arterial Blood 95.2 Oxygen Saturati on Сергей Test N/A Arterial Blood Right Gas Brachial Puncture Site Arterial 0.8 Blood Carboxyhe moglobin Arterial Blood 0.4 Methemoglobin Blood Gas A-a 567.1 H O2 Differential Oxyhemoglobin 94.1 Percent Blood Gas 37.0 Temperature Blood Gas 16.0 Respiration Rate Blood Gas 16 Actual Respiration Rat e Blood Gas VENT - AC Modality FiO2 100.0 Blood Gas Tidal 500.0 Volume Blood Gas Low 5.0 PEEP Setting Blood Gas 39.0 Inspiratory Pressure Blood Gas Kylah BEASLEY MD Critical Value Read Back Blood Gas KM Notified Whom Blood Gas 04/20/2019 11:1 Notified Time 2:33 PM Test 04/20/19 23:11 04/21/19 00:03 04/21/19 00:42 04/21/19 01:18 Urine Color YELLOW Urine Clarity TURBID A Urine pH 5.0 Urine Specific 1.020 [place] Urine Ketones NEGATIVE Urine Nitrite NEGATIVE Urine Bilirubin NEGATIVE Urine 2+ H Urobilinogen Urine Leukocyte NEGATIVE Esterase Urine 31 H Microscopic RBC Urine 0 Microscopic WBC Urine Squamous FEW Epithelial Cell s Urine Bacteria FEW A Urine Hyaline FEW A Casts Urine Mucus MANY A Urine 1+ H Hemoglobin Urine Glucose 1+ H Urine Total 3+ H Protein Blood Gas Blood arterial Specimen Source Arterial Blood 04/21/2019 12:15 Date Drawn :06 AM Arterial Blood 7.103 *L pH (Temp corrected ) Arterial Blood 50.7 H pCO2 (Temp correct) Arterial Blood 94.2 pO2 (Temp corrected ) Arterial Blood 15.5 L HCO3 Arterial Blood -14.1 L Base Excess Arterial Blood 94.3 L Oxygen Saturati on Сергей Test ACCEPTAB Arterial Blood Right Radial Gas Puncture Site Arterial 0.7 Blood Carboxyhe moglobin Arterial Blood 0.3 Methemoglobin Blood Gas A-a 568.1 H O2 Differential Oxyhemoglobin 93.4 Percent Blood Gas 37.0 Temperature Blood Gas 16.0 Respiration Rate Blood Gas 16 Actual Respiration Rat e Blood Gas VENT - AC Modality FiO2 100.0 Blood Gas Tidal 500.0 Volume Blood Gas Low 5.0 PEEP Setting Blood Gas Chantal LAWSON MD Critical Value Read Back Blood Gas Notified Whom Blood Gas 04/21/2019 12:26 Notified Time :44 AM White Blood 20.4 H Count Red Blood Count 4.20 L Hemoglobin 12.4 L Hematocrit 39.9 L Mean 95.0 Corpuscular Volume Mean 29.5 Corpuscular Hemoglobin Mean 31.1 L Corpuscular Hemoglobin Conc ent Red Cell 14.0 Distribution Width Platelet Count 197 Mean Platelet 10.1 Volume Immature 1.600 H Granulocytes % Neutrophils % 85.8 H Lymphocytes % 4.9 L Monocytes % 7.1 Eosinophils % 0.3 Basophils % 0.3 Nucleated Red 0.0 Blood Cells % Immature 0.330 H Granulocytes # Neutrophils # 17.5 H Lymphocytes # 1.0 Monocytes # 1.5 H Eosinophils # 0.1 Basophils # 0.1 Nucleated Red 0.0 Blood Cells # Prothrombin 20.2 H Time Prothrombin 1.6 Time Ratio INR 1.71 International Normalized Rati o Activated 32.4 Partial Thrombo plast Time Sodium Level 135 Potassium Level 5.5 H Chloride Level 109 Carbon Dioxide 20 L Level Anion Gap 6 # Blood Urea 27 H Nitrogen Creatinine 1.45 H Est Glomerular 48 L Filtrat Rate mL/min Glucose Level 164 Hemoglobin A1c 6.7 H Lactic Acid 2.1 *H Level Calcium Level 7.0 L Phosphorus 7.1 H Level Magnesium Level 2.2 Total Bilirubin 0.8 Direct 0.30 #H Bilirubin Indirect 0.5 Bilirubin Aspartate Amino 948 H Transf (AST/SGO T) Alanine 785 H Aminotransferas e (ALT/SGPT) Alkaline 158 H Phosphatase Troponin I 0.144 *H Total Protein 4.8 #L Albumin 2.5 #L Globulin 2.30 Albumin/Globuli 1.08 n Ratio Bedside Glucose 159 Test 04/21/19 03:48 04/21/19 04:30 04/21/19 04:37 04/21/19 04:40 Bedside Glucose 158 Sodium Level 137 Potassium Level 4.8 Chloride Level 110 Carbon Dioxide 19 L Level Anion Gap 8 Blood Urea 31 H Nitrogen Creatinine 1.30 H Est Glomerular 55 L Filtrat Rate mL/min Glucose Level 176 Calcium Level 7.1 L Procalcitonin 2.96 H White Blood 14.5 #H Count Red Blood Count 4.44 L Hemoglobin 13.0 L Hematocrit 41.5 L Mean 93.5 Corpuscular Volume Mean 29.3 Corpuscular Hemoglobin Mean 31.3 L Corpuscular Hemoglobin Conc ent Red Cell 14.0 Distribution Width Platelet Count 151 # Mean Platelet 10.2 Volume Immature 1.000 H Granulocytes % Neutrophils % 89.2 H Lymphocytes % 3.8 L Monocytes % 5.7 Eosinophils % 0.1 Basophils % 0.2 Nucleated Red 0.0 Blood Cells % Immature 0.150 H Granulocytes # Neutrophils # 13.0 H Lymphocytes # 0.6 L Monocytes # 0.8 Eosinophils # 0.0 Basophils # 0.0 Nucleated Red 0.0 Blood Cells # Lactic Acid 1.5 Level Phosphorus 5.4 H Level Magnesium Level 2.3 Test 04/21/19 06:00 04/21/19 07:43 04/21/19 07:51 04/21/19 09:02 Blood Gas Blood arterial Specimen Source Arterial Blood 04/21/2019 6:00: Date Drawn 33 AM Arterial Blood 7.296 *L pH (Temp corrected ) Arterial Blood 32.8 L pCO2 (Temp correct) Arterial Blood 69.9 L pO2 (Temp corrected ) Arterial Blood 16.4 L HCO3 Arterial Blood -10.2 L Base Excess Arterial Blood 96.0 Oxygen Saturati on Сергей Test ACCEPTAB Arterial Blood Left Radial Gas Puncture Site Arterial 0 Blood Carboxyhe moglobin Arterial Blood 0.2 Methemoglobin Blood Gas A-a 619.5 H O2 Differential Oxyhemoglobin 95.8 Percent Blood Gas 33.1 Temperature Blood Gas 20.0 Respiration Rate Blood Gas 21 Actual Respiration Rat e Blood Gas VENT - AC Modality FiO2 100.0 Blood Gas Tidal 500.0 Volume Blood Gas Low 5.0 PEEP Setting Blood Gas DPATEL RN Critical Value Read Back Blood Gas DIANA Notified Whom Blood Gas 04/21/2019 6:18: Notified Time 25 AM Bedside Glucose 129 145 Prothrombin 20.3 H Time Prothrombin 1.6 Time Ratio INR 1.73 International Normalized Rati o Activated 33.2 Partial Thrombo plast Time Fibrinogen 385.0 Amylase Level 56 Lipase 74 Test 04/21/19 12:16 Bedside Glucose 133 Medications Medication Current Medications Sodium Chloride 1,000 ml @ 100 mls/hr Q10H IV Last administered on 04/21/19 11:07; Admin Dose 100 MLS/HR; Start 04/20/19 at 23:30 Ondansetron HCl (Zofran Inj) 4 mg Q6H PRN IV NAUSEA AND/OR VOMITING; Start 04/20/19 at 23:30 Albuterol (Ventolin Hfa) 4 puff Q2H RESP THERAPY PRN INH SHORTNESS OF BREATH; Start 04/20/19 at 23:30 Ipratropium Manteno (Atrovent Hfa) 4 puff Q2H RESP THERAPY PRN INH SHORTNESS OF BREATH; Start 04/20/19 at 23:30 Acetaminophen (Tylenol Liquid) 650 mg Q6H PRN NGT PAIN LEVEL 1-3 OR FEVER; Start 04/20/19 at 23:30 Famotidine (Pepcid Iv) 20 mg Q12 IV Last administered on 04/21/19 08:33; Admin Dose 20 MG; Start 04/20/19 at 23:30 Norepinephrine 16 mg/Dextrose 250 ml @ 0.94 mls/hr TITRATE IV ; Start 04/21/19 at 00:00 Vecuronium Manteno 100 mg/ Dextrose 100 ml @ 6 mls/hr [id number] ONCE IV Last administered on 04/21/19 06:17; Admin Dose 6 MLS/HR; Start 04/21/19 at 00:03; Stop 04/21/19 at 16:42 Acetaminophen (Tylenol Liquid) 650 mg Q8 NGT ; Start 04/21/19 at 06:00 Buspirone HCl (Buspar) 30 mg Q8 PO ; Start 04/21/19 at 06:00 Eye Lubricant (Artificial Tears Oph) 2 drop Q6H BOTH EYES Last administered on 04/21/19 11:06; Admin Dose 2 DROP; Start 04/21/19 at 06:00 Eye Lubricant (Akwa Oint) 1 applic Q6 BOTH EYES Last administered on 04/21/19 11:06; Admin Dose 1 APPLIC; Start 04/21/19 at 06:00 Meperidine HCl (Demerol) 12.5 mg Q2H PRN IV shivering; Start 04/21/19 at 01:00 Propofol 100 ml @ 3 mls/hr TITRATE PRN IV AGITATION Last administered on 04/21/19 01:42; Admin Dose 3 MLS/HR; Start 04/21/19 at 01:30 Fentanyl 100 ml @ 2.5 mls/hr TITRATE PRN IV PAIN Last administered on 04/21/19 06:20; Admin Dose 2.5 MLS/HR; Start 04/21/19 at 02:00 Vancomycin HCl (Vanco Iv Per Pharmacy) VANCOMYCIN PER PHARMACY PER PROTOCOL XX ; Start 04/21/19 at 02:30 Piperacillin Sod/ Tazobactam Sod 100 ml @ 200 mls/hr Q6 IVPB Last administered on 04/21/19 11:08; Admin Dose 200 MLS/HR; Start 04/21/19 at 06:00 Aspirin (Aspirin) 300 mg DAILY [place] Last administered on 04/21/19 08:33; Admin Dose 300 MG; Start 04/21/19 at 09:00 Clopidogrel Bisulfate (plaVIX) 75 mg DAILY NGT Last administered on 04/21/19 08:52; Admin Dose 75 MG; Start 04/21/19 at 09:00 Vancomycin HCl 1.5 gm/Sodium Chloride 250 ml @ 83.333 mls/ hr Q24H IVPB ; Start 04/21/19 at 16:00 INGA MCCARTNEY MD Apr 21, 2019 12:42
--- NOTE | 2019-04-21 14:54 | RADRPT ---
Vent Rate: 50 bpm RR Interval: 1197 msec MD Interval: 256 msec QRS Duration: 236 msec QT Interval: 677 msec QTC Interval: 619 msec P-R-T [place]: -59 - -83 - 90 degrees A-V dual-paced rhythm with some inhibition...atrial and/or vent inhibition Electronically Signed By: Kelby Aguilar
--- NOTE | 2019-04-21 14:59 | RADRPT ---
Vent Rate: 50 bpm RR Interval: 1204 msec [place] Interval: 285 msec QRS Duration: 191 msec QT Interval: 673 msec QTC Interval: 613 msec P-R-T [place]: [id number] - -44 - 117 degrees Atrial-paced rhythm Left bundle branch block...QRSd>120, broad/notched R Lead(s) I were not used for morphology analysis Electronically Signed By: Kelby Aguilar
[2019-04-21] MEDS: VANCOMYCIN HCL 1.5 GM in SOD CHLORIDE 0.9% 250 ML IVPB SCH (15:40)
--- NOTE | 2019-04-21 16:44 | CONS ---
DATE OF ADMISSION: 04/20/2019 DATE OF CONSULTATION: 04/21/2019 TYPE OF CONSULTATION: Nephrology. REASON FOR CONSULTATION: Acute kidney injury. PHYSICIAN REQUESTING CONSULT: Werner Wang MD HISTORY OF PRESENT ILLNESS: This is a 68-year-old male with a past medical history of coronary arter y disease, history of CHF, history of aortic stenosis, history of cardiomyopathy, history of colon ca ncer, hypertension who presents to [facility] following cardiopulmonary arrest. Th e patient apparently returned from work complaining of abdominal pain which has been ongoing for the past several weeks. The patient then had a sudden collapse in front of his . Paramedics arrived on the scene where CPR was immediately initiated. The patient was intubated and was given epinephri ne x4 with a spontaneous return of circulation. The patient was admitted to the emergency room. He was initiated on hypothermic protocol and placed on broad spectrum antibiotics, IV fluids and admitte d to intensive care unit. The patient was also initially on pressor support. In terms of patient's renal history, the patient's baseline creatinine is unknown. On admission, the patient's creatinine had 1.46 mg/dL which is stable in the last 24 hours. The patient had adequate urinary output. There were no reports of any hemoptysis, hematemesis or hematochezia. PAST MEDICAL HISTORY: As stated above, history of coronary artery disease, history of cardiomyopathy , history of hypertension, history of colon cancer, history of severe aortic stenosis. PAST SURGICAL HISTORY: Status post CABG, status post ICD placement, status post PCI. FAMILY HISTORY: No family history of kidney disease. SOCIAL HISTORY: Does not drink, smoke or do drugs. MEDICATIONS: Have been reviewed. ALLERGIES: NO KNOWN DRUG ALLERGIES. REVIEW OF SYSTEMS: Unable to do adequate review of systems as patient is obtunded. Pertinent positi ves as obtained by reviewing medical records and speaking to hospital staff, stated in HPI, otherwise negative. PHYSICAL EXAMINATION: VITAL SIGNS: Blood pressure 115/79, respirations 20, pulse 68, temperature 93.3. HEENT: Head is normocephalic. NECK: Supple. HEART: Regular. LUNGS: Showed diminished breath sounds at base. ABDOMEN: Soft, nontender to palpation. No rebound or guarding. EXTREMITIES: Negative for clubbing, cyanosis. Trace edema. DERMATOLOGIC: No rashes. MUSCULOSKELETAL: No joint effusions. NEUROLOGIC: No neurological issues. The patient is obtunded on hypothermia protocol. LABORATORY DATA: Have been reviewed. Urinalysis has been reviewed. IMAGING STUDIES: Have been reviewed. ASSESSMENT AND PLAN: This is a 68-year-old male who presents with: 1. Nonoliguric acute kidney injury with unknown baseline creatinine. Etiology of acute kidney injur y is likely multifactorial secondary to tubular injury due to ischemic hypoperfusion and shock, cardi ac arrest, hemodynamics. The patient's initial urinalysis does show evidence of hyaline casts, prote inuria and hematuria. Abdominal ultrasound shows no evidence of obstruction. The patient's renal fu nction has been stable in the last 24 hours. Urinary output has been adequate. At this point, we wo uld continue current treatment plan, continue supportive care, renally dose all meds, continue gentle IV hydration and monitor closely. 2. Metabolic acidosis secondary to shock, cardiac arrest. The patient currently is compensated. We will continue to monitor. 3. Anemia. Monitor H and H levels. 4. Ventilator dependent respiratory failure. Vent settings and ABG was reviewed. Continue to monit or. 5. Status post cardiopulmonary arrest. Etiology is unclear, presumed respiratory versus cardiac. C ontinue hypothermic protocol. Monitor closely. 6. Shock, presumed cardiogenic. Continue present support as needed. Continue current antibiotics g iven elevated procalcitonin level. Follow up cultures. 7. History of coronary artery disease. Continue medical management. 8. Encephalopathy with possible anoxic injury. Continue to monitor. Follow up with neurology. 9. History of valvular heart disease. Continue to monitor. Thank you, Dr. Wang, for this interesting consult. It will be a pleasure to follow patient with y ou throughout the hospital course. Please note, I spent over 30 minutes of critical care time with this patient. Dictated By: AMADA LAZAR DO NR/NTS Conf#: [id number] DID#: [id number] CC: INGA MCCARTNEY MD; WERNER WANG MD; DUNG ORTA MD;*End*
[2019-04-21] MEDS ORDERED: PANTOPRAZOLE 40 MG INJ IV SCH (18:00)
[2019-04-21] MEDS ORDERED: VANCOMYCIN HCL 1.5 GM in SOD CHLORIDE 0.9% 250 ML IVPB SCH (20:00)
[2019-04-22] VITALS (91 sets, daily range): BP systolic 81–142; BP diastolic 49–85; PULSE 49–79; RESP 16–27
[2019-04-22] MEDS: SOD CHLORIDE 0.9% 1,000 ML IV SCH ×2 (01:02→11:06)
[2019-04-22] MEDS: PROPOFOL 100 ML IV PRN ×5 (01:53→23:28)
[2019-04-22] MEDS: FENTAnyl (DRIP) 1000 mcg/100mL 100 ML IV PRN (04:29)
[2019-04-22] MEDS: ACETAMINOPHEN 650MG/20.3ML CUP NGT SCH ×3 (05:25→21:21)
[2019-04-22] MEDS: BUSPIRONE 5 MG TAB PO SCH ×3 (05:25→21:21)
[2019-04-22] MEDS: PIPER-TAZO 3.375 GM IV (PMX) 100 ML IVPB SCH ×3 (05:27→18:03)
[2019-04-22] MEDS: OCULAR LUBRICANT 3.5 GM OPH OINT BOTH EYES SCH ×3 (05:28→17:29)
[2019-04-22] MEDS: ARTIFICIAL TEARS 15 ML OPH BOTH EYES SCH ×3 (05:28→17:29)
[2019-04-22] MEDS: CLOPIDOGREL 75 MG TAB NGT SCH (08:00)
[2019-04-22] MEDS: ASPIRIN 300 MG SUPP PR SCH (08:00)
[2019-04-22] MEDS: FAMOTIDINE 20 MG INJ IV SCH ×2 (08:00→21:21)
--- NOTE | 2019-04-22 08:27 | PN ---
DATE: 04/22/2019 SUBJECTIVE: The patient remains critically ill on full ventilatory support. The patient is on hypot hermic protocol and rewarming phase. Urinary output has been adequate. The patient is on pressor rodriguez pport. No other events noted. OBJECTIVE: VITAL SIGNS: Blood pressure is 91/60, respirations 20, pulse 50. HEENT: Head is normocephalic. NECK: Supple. HEART: Regular rate. LUNGS: Show diminished breath sounds at the base. ABDOMEN: Soft, nontender to palpation without rebound or guarding. EXTREMITIES: Negative for clubbing, cyanosis, no edema. DERMATOLOGIC: No rashes. MUSCULOSKELETAL: No joint effusion. NEUROLOGIC: The patient is obtunded. No change in exam. MEDICATIONS: The patient's medications have been reviewed. LABORATORY DATA: Has been reviewed. IMAGING STUDIES: Have been reviewed. ASSESSMENT AND PLAN: 1. Nonoliguric acute kidney injury with unknown baseline creatinine. Etiology of acute kidney injur y is multifactorial, likely secondary to tubular injury due to ischemic hypoperfusion and shock, card iac arrest. The patient's renal function has improved. This patient is in recovery phase of acute t ubular necrosis. At this point, continue current treatment plan, supportive care, renally dose all m edications. Will monitor renal function closely. 2. Mixed acid base disorder. The patient has a metabolic acidosis and respiratory alkalosis. Will continue to monitor. No need for bicarbonate therapy. 3. Anemia. Monitor hemoglobin and hematocrit levels. 4. Mineral bone disorder, monitor calcium and phosphorus levels. 5. Ventilatory-dependent respiratory failure. Vent settings and ABG was reviewed. Continue to [facility]. 6. Status post cardiopulmonary arrest. Etiology is unclear, presumed respiratory versus cardiac. T he patient is currently on hypothermic protocol. Will continue. Follow up 2D echo. 7. Shock, presumed cardiogenic. The patient remains on pressor support. Will continue current jamal tment plan. Wean off pressors if possible. Other possibilities of shock include sepsis, possible as piration. The patient is on antibiotic therapy. We will continue. Follow up cultures. 9. History of coronary artery disease. Continue medical management. 10. Encephalopathy with possible anoxic injury. Continue to monitor. Follow up with neurology. 11. History of valvular heart disease. Please note, I spent over 30 minutes of critical care time with this patient. Dictated By: AMADA ODEN/WENDY Conf#: [id number] DID#: [id number] CC: INGA MCCARTNEY MD; DUNG ORTA MD; FERMIN WANG MD;*End*
--- NOTE | 2019-04-22 09:30 | CONS ---
Assessment/Plan Assessment/Plan Assessment/Plan (Daily) Ventilator setting; AC of 20, tidal volume 500, PEEP of 5, 40% FiO2. Patient is on Levophed 2 mics per minute, propofol 30 mics per kilogram per minute. Assessment and recommendations; 1. Patient admitted with cardiac arrest due to likely underlying cardiomyopathy. 2. Currently on rewarming phase of hypothermia protocol. 3. Possibly some element of aspiration pneumonia. 4. Shock liver with interval improvement. 5. Chronic renal insufficiency with stable serum creatinine. 6. Prior CABG. 7. History of pacemaker placement. 8. Interval correction of metabolic acidosis. Continue current supportive care. Mental status to be assessed once patient is off hypothermia protocol. Obtain follow-up chest x-ray 24 hours. Prognosis is guarded. 35 minutes of critical care time was spent evaluating the patient. Consultation Date/Type/Reason Admit Date/Time Apr 20, 2019 at 23:27 Initial Consult Date 04/21/19 Type of Consult Pulmonary/critical care Patient is a 68-year-old gentleman who was brought into the hospital after having a cardiac arrest event at home. Long CPR was done lasting approximately 30 minutes. Patient currently is intubated and is on hypothermia protocol. Past medical history; 1. History of likely underlying cardiomyopathy with CHF. 2. Prior CABG. 3. Apparent chronic mild renal insufficiency as well. 4. Possibly COPD as well based upon chest x-ray. 5. History of pacemaker placement in the past. Medications; reviewed. Allergies; none. Family history; patient is . Occupational history; not available. Social history; not available. Review of systems; unable to be obtained. General exam; elderly male, orally intubated, sedated. On hypothermia protocol. Requesting Provider: FERMIN WANG Date/Time of Note DATE: 04/22/19 TIME: 09:23 24 HR Interval Summary Free Text/Dictation Patient's condition is critical. Currently on rewarming phase of hypothermia protocol. Patient has remained mildly hypotensive on low-dose Levophed. General exam; elderly male, orally intubated, sedated. Currently in no distress. Exam/Review of Systems Exam Vitals Vital Signs Date Temp Pulse Resp B/P (MAP) Pulse Ox O2 O2 Flow FiO2 Time Delivery Rate 04/22/19 93.7 50 20 95/62 (73) 100 09:00 04/22/19 40 05:37 04/21/19 Mechanical 00:40 Ventilator Intake and Output 04/21/19 04/21/19 04/22/19 1515:00 23:00 07:00 IntakeIntake Total 1044.775 ml 1064.51 ml 1304.04 ml OutputOutput Total 759 ml 283 ml 160 ml BalanceBalance 285.775 ml 781.51 ml 1144.04 ml Exam H EENT exam; supple neck, positive JVD. No lymphadenopathy. Midline trachea. No thyromegaly. Orally intubated. Patient has bilateral surgical pupils. Nasogastric tube in place. Patient has fair dentition. No neck masses. Chest exam; diminished breath sounds throughout. S1-S2 audible, no murmurs. There is a well-healed sternal scar. Pacemaker in left chest wall. Abdomen exam; soft, protuberant. No organomegaly. Bowel sounds are sluggish to absent. Extremity exam; trace edema. COLLECTIONS SPECIALIST exam; patient is sedated. Results Result Diagram: 04/22/19 0600 04/22/19 0600 Results 24hrs Laboratory Tests Test 04/21/19 12:00 04/21/19 12:16 04/21/19 14:49 04/21/19 17:00 Blood Gas Blood arterial Specimen Source Arterial Blood 04/21/2019 12:10: Date Drawn 07 PM Arterial Blood pH 7.411 (Temp corrected) Arterial Blood 26.7 L pCO2 (Temp correct) Arterial Blood 169.4 H pO2 (Temp corrected) Arterial Blood 17.4 L HCO3 Arterial Blood -7.1 L Base Excess Arterial Blood 99.1 H Oxygen Saturation Сергей Test ACCEPTAB Arterial Blood Right Radial Gas Puncture Site Arterial 0 Blood Carboxyhemo globin Arterial Blood 0.3 Methemoglobin Blood Gas A-a O2 527.4 H Differential Oxyhemoglobin 98.8 Percent Blood Gas 32.5 Temperature Blood Gas 20.0 Respiration Rate Blood Gas Actual 20 Respiration Rate Blood Gas VENT - AC Modality FiO2 100.0 Blood Gas Tidal 500.0 Volume Blood Gas Low 5.0 PEEP Setting Blood Gas Notified Whom Blood Gas 04/21/2019 12:45: Notified Time 24 PM Bedside Glucose 133 107 White Blood Count 9.9 # Red Blood Count 4.21 L Hemoglobin 12.4 L Hematocrit 38.6 L Mean Corpuscular 91.7 Volume Mean Corpuscular 29.5 Hemoglobin Mean Corpuscular 32.1 Hemoglobin Concen t Red Cell 13.9 Distribution Width Platelet Count 126 L Mean Platelet 10.0 Volume Immature 0.400 Granulocytes % Neutrophils % 85.4 H Lymphocytes % 7.1 L Monocytes % 6.9 Eosinophils % 0.0 Basophils % 0.2 Nucleated Red 0.0 Blood Cells % Immature 0.040 H Granulocytes # Neutrophils # 8.5 H Lymphocytes # 0.7 L Monocytes # 0.7 Eosinophils # 0.0 Basophils # 0.0 Nucleated Red 0.0 Blood Cells # Sodium Level 140 Potassium Level 3.7 Chloride Level 112 H Carbon Dioxide 22 Level Anion Gap 6 Blood Urea 30 H Nitrogen Creatinine 1.11 Est Glomerular > 60 Filtrat Rate mL/min Glucose Level 128 # Lactic Acid Level 1.4 Calcium Level 6.6 L Phosphorus Level 4.3 Magnesium Level 2.1 Creatine Kinase 127 Creatine Kinase 3.2 Index Creatinine Kinase 4.03 H MB (Mass) Troponin I 0.030 Test 04/21/19 18:00 04/21/19 18:32 04/21/19 20:36 04/21/19 21:03 Blood Gas Blood arterial Specimen Source Arterial Blood 04/21/2019 5:40:1 Date Drawn 3 PM Arterial Blood pH 7.488 H (Temp corrected) Arterial Blood 22.8 L pCO2 (Temp correct) Arterial Blood 119.1 H pO2 (Temp corrected) Arterial Blood 17.7 L HCO3 Arterial Blood -5.4 L Base Excess Arterial Blood 98.8 H Oxygen Saturation Сергей Test ACCEPTAB Arterial Blood Right Radial Gas Puncture Site Arterial 0.3 Blood Carboxyhemo globin Arterial Blood 0.1 Methemoglobin Blood Gas A-a O2 290.3 H Differential Oxyhemoglobin 98.4 Percent Blood Gas 32.1 Temperature Blood Gas 20.0 Respiration Rate Blood Gas Actual 20 Respiration Rate Blood Gas VENT - AC Modality FiO2 60.0 Blood Gas Tidal 500.0 Volume Blood Gas Low 5.0 PEEP Setting Blood Gas CAITLYN HARRISON Notified Whom Blood Gas 04/21/2019 5:54:2 Notified Time 3 PM White Blood Count 7.9 # Red Blood Count 4.13 L Hemoglobin 12.2 L Hematocrit 37.5 L Mean Corpuscular 90.8 Volume Mean Corpuscular 29.5 Hemoglobin Mean Corpuscular 32.5 Hemoglobin Concen t Red Cell 13.6 Distribution Width Platelet Count 123 L Mean Platelet 10.5 H Volume Immature 0.600 H Granulocytes % Neutrophils % 81.9 H Lymphocytes % 10.3 L Monocytes % 6.5 Eosinophils % 0.4 Basophils % 0.3 Nucleated Red 0.0 Blood Cells % Immature 0.050 H Granulocytes # Neutrophils # 6.4 Lymphocytes # 0.8 Monocytes # 0.5 Eosinophils # 0.0 Basophils # 0.0 Nucleated Red 0.0 Blood Cells # Sodium Level 140 Potassium Level 4.0 Chloride Level 110 Carbon Dioxide 22 Level Anion Gap 8 Blood Urea 31 H Nitrogen Creatinine 1.13 Est Glomerular > 60 Filtrat Rate mL/min Glucose Level 125 Lactic Acid Level 1.7 Calcium Level 7.0 L Phosphorus Level 4.4 Magnesium Level 2.3 Creatine Kinase 122 Creatine Kinase 3.6 Index Creatinine Kinase 4.35 H MB (Mass) Troponin I < 0.012 Bedside Glucose 109 Prothrombin Time 18.8 H Prothrombin Time 1.5 Ratio INR International 1.56 Normalized Ratio Activated 34.3 Partial Thrombopl ast Time Fibrinogen 439.0 # Amylase Level 43 Lipase 52 Test 04/22/19 00:00 04/22/19 01:07 04/22/19 03:11 04/22/19 05:34 White Blood Count 8.4 Red Blood Count 4.30 L Hemoglobin 12.6 L Hematocrit 38.7 L Mean Corpuscular 90.0 Volume Mean Corpuscular 29.3 Hemoglobin Mean Corpuscular 32.6 Hemoglobin Concen t Red Cell 13.8 Distribution Width Platelet Count 120 L Mean Platelet 10.5 H Volume Immature 0.400 Granulocytes % Neutrophils % 82.7 H Lymphocytes % 8.9 L Monocytes % 7.3 Eosinophils % 0.5 Basophils % 0.2 Nucleated Red 0.0 Blood Cells % Immature 0.030 Granulocytes # Neutrophils # 7.0 Lymphocytes # 0.8 Monocytes # 0.6 Eosinophils # 0.0 Basophils # 0.0 Nucleated Red 0.0 Blood Cells # Blood Gas Blood arterial Specimen Source Arterial Blood 04/22/2019 12:00: Date Drawn 45 AM Arterial Blood pH 7.498 H (Temp corrected) Arterial Blood 23.6 L pCO2 (Temp correct) Arterial Blood 92.8 pO2 (Temp corrected) Arterial Blood 18.8 L HCO3 Arterial Blood -4.3 L Base Excess Arterial Blood 98.1 H Oxygen Saturation Сергей Test ACCEPTAB Arterial Blood Right Radial Gas Puncture Site Arterial 0.3 Blood Carboxyhemo globin Arterial Blood 0.2 Methemoglobin Blood Gas A-a O2 169.7 H Differential Oxyhemoglobin 97.6 Percent Blood Gas 32.2 Temperature Blood Gas 20.0 Respiration Rate Blood Gas Actual 20 Respiration Rate Blood Gas VENT - AC Modality FiO2 40.0 Blood Gas Tidal 500.0 Volume Blood Gas Low 5.0 PEEP Setting Blood Gas MG Notified Whom Blood Gas 04/22/2019 12:06: Notified Time 43 AM Sodium Level 139 Potassium Level 3.8 Chloride Level 112 H Carbon Dioxide 21 Level Anion Gap 6 Blood Urea 30 H Nitrogen Creatinine 1.08 Est Glomerular > 60 Filtrat Rate mL/min Glucose Level 122 Lactic Acid Level 1.7 Calcium Level 7.5 L Phosphorus Level 4.6 Magnesium Level 2.2 Troponin I 0.026 Bedside Glucose 112 103 Urine Color YELLOW Urine Clarity CLOUDY A Urine pH 5.0 Urine Specific 1.028 [place] Urine Ketones TRACE A Urine Nitrite NEGATIVE Urine Bilirubin NEGATIVE Urine NEGATIVE Urobilinogen Urine Leukocyte NEGATIVE Esterase Urine Microscopic 5 RBC Urine Microscopic 2 WBC Urine Uric Acid MANY A Crystals Urine Hemoglobin 1+ H Urine Random 94.20 Creatinine Urine Random 49 Sodium Urine Glucose NEGATIVE Urine Total 24.0 H Protein Test 04/22/19 06:00 04/22/19 07:50 04/22/19 08:42 White Blood Count 9.9 Red Blood Count 4.40 L Hemoglobin 13.0 L Hematocrit 39.6 L Mean Corpuscular 90.0 Volume Mean Corpuscular 29.5 Hemoglobin Mean Corpuscular 32.8 Hemoglobin Concen t Red Cell 13.5 Distribution Width Platelet Count 136 L Mean Platelet 10.5 H Volume Immature 0.400 Granulocytes % Neutrophils % 87.4 H Lymphocytes % 5.1 L Monocytes % 6.8 Eosinophils % 0.1 Basophils % 0.2 Nucleated Red 0.0 Blood Cells % Immature 0.040 H Granulocytes # Neutrophils # 8.6 H Lymphocytes # 0.5 L Monocytes # 0.7 Eosinophils # 0.0 Basophils # 0.0 Nucleated Red 0.0 Blood Cells # Blood Gas Blood arterial Specimen Source Arterial Blood 04/22/2019 6:00:1 Date Drawn 4 AM Arterial Blood pH 7.449 (Temp corrected) Arterial Blood 24.4 L pCO2 (Temp correct) Arterial Blood 57.2 L pO2 (Temp corrected) Arterial Blood 17.2 L HCO3 Arterial Blood -6.3 L Base Excess Arterial Blood 94.4 L Oxygen Saturation Сергей Test ACCEPTAB Arterial Blood Left Radial Gas Puncture Site Arterial 0.2 Blood Carboxyhemo globin Arterial Blood 0.2 Methemoglobin Blood Gas A-a O2 203.8 H Differential Oxyhemoglobin 94.0 Percent Blood Gas 32.9 Temperature Blood Gas 20.0 Respiration Rate Blood Gas Actual 20 Respiration Rate Blood Gas VENT - AC Modality FiO2 40.0 Blood Gas Tidal 500.0 Volume Blood Gas Low 5.0 PEEP Setting Blood Gas UP Notified Whom Blood Gas 04/22/2019 6:07:0 Notified Time 4 AM Sodium Level 141 Potassium Level 3.7 Chloride Level 112 H Carbon Dioxide 20 L Level Anion Gap 9 Blood Urea 29 H Nitrogen Creatinine 1.04 Est Glomerular > 60 Filtrat Rate mL/min Glucose Level 123 Lactic Acid Level 1.9 Calcium Level 7.3 L Phosphorus Level 4.5 Magnesium Level 2.2 Total Bilirubin 0.5 Direct Bilirubin 0.00 # Indirect 0.5 Bilirubin Aspartate Amino 233 #H Transf (AST/SGOT) Alanine 602 H Aminotransferase (ALT/SGPT) Alkaline 110 Phosphatase Creatine Kinase 107 Creatine Kinase 4.0 Index Creatinine Kinase 4.27 H MB (Mass) Troponin I 0.019 Total Protein 4.8 L Albumin 2.5 L Globulin 2.30 Albumin/Globulin 1.08 Ratio Triglycerides 109 Level Cholesterol Level 74 L LDL Cholesterol, 25 Calculated HDL Cholesterol 27 L Cholesterol/HDL 2.7 Ratio Hepatitis B NEGATIVE Surface Antigen Hepatitis B Core NEGATIVE Total Antibody Hepatitis C NEGATIVE Antibody Bedside Glucose 110 Prothrombin Time 18.0 H Prothrombin Time 1.4 Ratio INR International 1.48 Normalized Ratio Activated 34.0 Partial Thrombopl ast Time Amylase Level 38 Lipase 52 Medications Medication Current Medications Sodium Chloride 1,000 ml @ 100 mls/hr Q10H IV Last administered on 04/22/19at 01:02; Admin Dose 100 MLS/HR; Start 04/20/19 at 23:30 Ondansetron HCl (Zofran Inj) 4 mg Q6H PRN IV NAUSEA AND/OR VOMITING; Start 04/20/19 at 23:30 Albuterol (Ventolin Hfa) 4 puff Q2H RESP THERAPY PRN INH SHORTNESS OF BREATH; Start 04/20/19 at 23:30 Ipratropium Maddock (Atrovent Hfa) 4 puff Q2H RESP THERAPY PRN INH SHORTNESS OF BREATH; Start 04/20/19 at 23:30 Acetaminophen (Tylenol Liquid) 650 mg Q6H PRN NGT PAIN LEVEL 1-3 OR FEVER; Start 04/20/19 at 23:30 Famotidine (Pepcid Iv) 20 mg Q12 IV Last administered on 04/22/19at 08:00; Admin Dose 20 MG; Start 04/20/19 at 23:30 Norepinephrine 16 mg/Dextrose 250 ml @ 0.94 mls/hr TITRATE IV Last administered on 04/21/19at 21:24; Admin Dose 1.88 MLS/HR; Start 04/21/19 at 00:00 Acetaminophen (Tylenol Liquid) 650 mg Q8 NGT ; Start 04/21/19 at 06:00 Buspirone HCl (Buspar) 30 mg Q8 PO ; Start 04/21/19 at 06:00 Eye Lubricant (Artificial Tears Oph) 2 drop Q6H BOTH EYES Last administered on 04/22/19 05:28; Admin Dose 2 DROP; Start 04/21/19 at 06:00 Eye Lubricant (Akwa Oint) 1 applic Q6 BOTH EYES Last administered on 04/22/19 05:28; Admin Dose 1 APPLIC; Start 04/21/19 at 06:00 Meperidine HCl (Demerol) 12.5 mg Q2H PRN IV shivering Last administered on 04/21/19at 15:59; Admin Dose 12.5 MG; Start 04/21/19 at 01:00 Propofol 100 ml @ 3 mls/hr TITRATE PRN IV AGITATION Last administered on 04/22/19at 08:23; Admin Dose 18 MLS/HR; Start 04/21/19 at 01:30 Fentanyl 100 ml @ 2.5 mls/hr TITRATE PRN IV PAIN Last administered on 04/22/19 04:29; Admin Dose 5 MLS/HR; Start 04/21/19 at 02:00 Vancomycin HCl (Vanco Iv Per Pharmacy) VANCOMYCIN PER PHARMACY PER PROTOCOL XX ; Start 04/21/19 at 02:30 Piperacillin Sod/ Tazobactam Sod 100 ml @ 200 mls/hr Q6 IVPB Last administered on 04/22/19at 05:27; Admin Dose 200 MLS/HR; Start 04/21/19 at 06:00 Aspirin (Aspirin) 300 mg DAILY DE Last administered on 04/22/19 08:00; Admin Dose 300 MG; Start 04/21/19 at 09:00 Clopidogrel Bisulfate (plaVIX) 75 mg DAILY NGT Last administered on 04/22/19 08:00; Admin Dose 75 MG; Start 04/21/19 at 09:00 Vancomycin HCl 1.5 gm/Sodium Chloride 250 ml @ 83.333 mls/ hr Q24H IVPB Last administered on 04/21/19 15:40; Admin Dose 83.333 MLS/HR; Start 04/21/19 at 16:00 JOSIE MAS Apr 22, 2019 09:30
--- NOTE | 2019-04-22 11:40 | RADRPT ---
Vent Rate: 54 bpm RR Interval: 1119 msec FL Interval: 80 msec QRS Duration: 226 msec QT Interval: 674 msec QTC Interval: 637 msec P-R-T [place]: [id number] - -73 - 92 degrees A-V dual-paced complexes w/ some inhibition...other complexes also detected Electronically Signed By: Kelby Aguilar
--- NOTE | 2019-04-22 11:41 | RADRPT ---
Vent Rate: 50 bpm RR Interval: 1193 msec [place] Interval: 216 msec QRS Duration: 216 msec QT Interval: 675 msec QTC Interval: 618 msec P-R-T [place]: [id number] - -78 - 96 degrees Atrial-ventricular dual-paced complexes...other complexes also detected Electronically Signed By: Kelby Aguilar
--- NOTE | 2019-04-22 14:02 | PN ---
Date/Time of Note Date/Time of Note DATE: 04/22/19 TIME: 14:01 Assessment/Plan VTE Prophylaxis Risk score (from Ns)>0 risk: 10 SCD applied (from Ns): Yes Pharmacological prophylaxis: heparin Lines/Catheters IV Catheter Type (from [facility] Central Line Central line still needed: Yes Urinary Cath still in place: Yes Reason Cath still needed: urinary retention Assessment/Plan Hospital Course Intubated, sedated RRR Clear Soft nt nd A/P: 68 yo male with CAD, systolic CHF, ischemic cardiomyopathy VF s/p ICD previous presented after cardiac arrest with CPR and ROSC in the field. Now undergoing therapuetic hypothermia - Unclear cause of arrest but likely arrhymthia vs ACS - Continue theraputic hypothermia protocol Cardiogenic shock: - Vasopressors as needed - Empiric abx as well in case sepsis present CAD: - Asprin, plavix, statin Acute repsiratory failure: - MV per pulmonary Likely anoxic brain injury - Assess when off of sedation Goals of care to be addressed pending assessment of neurologic status Result Diagram: 04/22/19 1144 04/22/19 1144 Results 24hrs Laboratory Tests Test 04/21/19 14:49 04/21/19 17:00 04/21/19 18:00 04/21/19 18:32 White Blood Count 9.9 # 7.9 # Red Blood Count 4.21 L 4.13 L Hemoglobin 12.4 L 12.2 L Hematocrit 38.6 L 37.5 L Mean Corpuscular 91.7 90.8 Volume Mean Corpuscular 29.5 29.5 Hemoglobin Mean Corpuscular 32.1 32.5 Hemoglobin Concen t Red Cell 13.9 13.6 Distribution Width Platelet Count 126 L 123 L Mean Platelet 10.0 10.5 H Volume Immature 0.400 0.600 H Granulocytes % Neutrophils % 85.4 H 81.9 H Lymphocytes % 7.1 L 10.3 L Monocytes % 6.9 6.5 Eosinophils % 0.0 0.4 Basophils % 0.2 0.3 Nucleated Red 0.0 0.0 Blood Cells % Immature 0.040 H 0.050 H Granulocytes # Neutrophils # 8.5 H 6.4 Lymphocytes # 0.7 L 0.8 Monocytes # 0.7 0.5 Eosinophils # 0.0 0.0 Basophils # 0.0 0.0 Nucleated Red 0.0 0.0 Blood Cells # Sodium Level 140 140 Potassium Level 3.7 4.0 Chloride Level 112 H 110 Carbon Dioxide 22 22 Level Anion Gap 6 8 Blood Urea 30 H 31 H Nitrogen Creatinine 1.11 1.13 Est Glomerular > 60 > 60 Filtrat Rate mL/min Glucose Level 128 # 125 Lactic Acid Level 1.4 1.7 Calcium Level 6.6 L 7.0 L Phosphorus Level 4.3 4.4 Magnesium Level 2.1 2.3 Creatine Kinase 127 122 Creatine Kinase 3.2 3.6 Index Creatinine Kinase 4.03 H 4.35 H MB (Mass) Troponin I 0.030 < 0.012 Bedside Glucose 107 Blood Gas Blood arterial Specimen Source Arterial Blood 04/21/2019 5:40:1 Date Drawn 3 PM Arterial Blood pH 7.488 H (Temp corrected) Arterial Blood 22.8 L pCO2 (Temp correct) Arterial Blood 119.1 H pO2 (Temp corrected) Arterial Blood 17.7 L HCO3 Arterial Blood -5.4 L Base Excess Arterial Blood 98.8 H Oxygen Saturation Сергей Test ACCEPTAB Arterial Blood Right Radial Gas Puncture Site Arterial 0.3 Blood Carboxyhemo globin Arterial Blood 0.1 Methemoglobin Blood Gas A-a O2 290.3 H Differential Oxyhemoglobin 98.4 Percent Blood Gas 32.1 Temperature Blood Gas 20.0 Respiration Rate Blood Gas Actual 20 Respiration Rate Blood Gas VENT - AC Modality FiO2 60.0 Blood Gas Tidal 500.0 Volume Blood Gas Low 5.0 PEEP Setting Blood Gas CAITLYN HARRISON Notified Whom Blood Gas 04/21/2019 5:54:2 Notified Time 3 PM Test 04/21/19 20:36 04/21/19 21:03 04/22/19 00:00 04/22/19 01:07 Bedside Glucose 109 112 Prothrombin Time 18.8 H Prothrombin Time 1.5 Ratio INR International 1.56 Normalized Ratio Activated 34.3 Partial Thrombopl ast Time Fibrinogen 439.0 # Amylase Level 43 Lipase 52 White Blood Count 8.4 Red Blood Count 4.30 L Hemoglobin 12.6 L Hematocrit 38.7 L Mean Corpuscular 90.0 Volume Mean Corpuscular 29.3 Hemoglobin Mean Corpuscular 32.6 Hemoglobin Concen t Red Cell 13.8 Distribution Width Platelet Count 120 L Mean Platelet 10.5 H Volume Immature 0.400 Granulocytes % Neutrophils % 82.7 H Lymphocytes % 8.9 L Monocytes % 7.3 Eosinophils % 0.5 Basophils % 0.2 Nucleated Red 0.0 Blood Cells % Immature 0.030 Granulocytes # Neutrophils # 7.0 Lymphocytes # 0.8 Monocytes # 0.6 Eosinophils # 0.0 Basophils # 0.0 Nucleated Red 0.0 Blood Cells # Blood Gas Blood arterial Specimen Source Arterial Blood 04/22/2019 12:00: Date Drawn 45 AM Arterial Blood pH 7.498 H (Temp corrected) Arterial Blood 23.6 L pCO2 (Temp correct) Arterial Blood 92.8 pO2 (Temp corrected) Arterial Blood 18.8 L HCO3 Arterial Blood -4.3 L Base Excess Arterial Blood 98.1 H Oxygen Saturation Сергей Test ACCEPTAB Arterial Blood Right Radial Gas Puncture Site Arterial 0.3 Blood Carboxyhemo globin Arterial Blood 0.2 Methemoglobin Blood Gas A-a O2 169.7 H Differential Oxyhemoglobin 97.6 Percent Blood Gas 32.2 Temperature Blood Gas 20.0 Respiration Rate Blood Gas Actual 20 Respiration Rate Blood Gas VENT - AC Modality FiO2 40.0 Blood Gas Tidal 500.0 Volume Blood Gas Low 5.0 PEEP Setting Blood Gas MG Notified Whom Blood Gas 04/22/2019 12:06: Notified Time 43 AM Sodium Level 139 Potassium Level 3.8 Chloride Level 112 H Carbon Dioxide 21 Level Anion Gap 6 Blood Urea 30 H Nitrogen Creatinine 1.08 Est Glomerular > 60 Filtrat Rate mL/min Glucose Level 122 Lactic Acid Level 1.7 Calcium Level 7.5 L Phosphorus Level 4.6 Magnesium Level 2.2 Troponin I 0.026 Test 04/22/19 03:11 04/22/19 05:34 04/22/19 06:00 04/22/19 07:50 Urine Color YELLOW Urine Clarity CLOUDY A Urine pH 5.0 Urine Specific 1.028 [place] Urine Ketones TRACE A Urine Nitrite NEGATIVE Urine Bilirubin NEGATIVE Urine NEGATIVE Urobilinogen Urine Leukocyte NEGATIVE Esterase Urine Microscopic 5 RBC Urine Microscopic 2 WBC Urine Uric Acid MANY A Crystals Urine Hemoglobin 1+ H Urine Random 94.20 Creatinine Urine Random 49 Sodium Urine Glucose NEGATIVE Urine Total 24.0 H Protein Bedside Glucose 103 110 White Blood Count 9.9 Red Blood Count 4.40 L Hemoglobin 13.0 L Hematocrit 39.6 L Mean Corpuscular 90.0 Volume Mean Corpuscular 29.5 Hemoglobin Mean Corpuscular 32.8 Hemoglobin Concen t Red Cell 13.5 Distribution Width Platelet Count 136 L Mean Platelet 10.5 H Volume Immature 0.400 Granulocytes % Neutrophils % 87.4 H Lymphocytes % 5.1 L Monocytes % 6.8 Eosinophils % 0.1 Basophils % 0.2 Nucleated Red 0.0 Blood Cells % Immature 0.040 H Granulocytes # Neutrophils # 8.6 H Lymphocytes # 0.5 L Monocytes # 0.7 Eosinophils # 0.0 Basophils # 0.0 Nucleated Red 0.0 Blood Cells # Blood Gas Blood arterial Specimen Source Arterial Blood 04/22/2019 6:00:1 Date Drawn 4 AM Arterial Blood pH 7.449 (Temp corrected) Arterial Blood 24.4 L pCO2 (Temp correct) Arterial Blood 57.2 L pO2 (Temp corrected) Arterial Blood 17.2 L HCO3 Arterial Blood -6.3 L Base Excess Arterial Blood 94.4 L Oxygen Saturation Сергей Test ACCEPTAB Arterial Blood Left Radial Gas Puncture Site Arterial 0.2 Blood Carboxyhemo globin Arterial Blood 0.2 Methemoglobin Blood Gas A-a O2 203.8 H Differential Oxyhemoglobin 94.0 Percent Blood Gas 32.9 Temperature Blood Gas 20.0 Respiration Rate Blood Gas Actual 20 Respiration Rate Blood Gas VENT - AC Modality FiO2 40.0 Blood Gas Tidal 500.0 Volume Blood Gas Low 5.0 PEEP Setting Blood Gas UP Notified Whom Blood Gas 04/22/2019 6:07:0 Notified Time 4 AM Sodium Level 141 Potassium Level 3.7 Chloride Level 112 H Carbon Dioxide 20 L Level Anion Gap 9 Blood Urea 29 H Nitrogen Creatinine 1.04 Est Glomerular > 60 Filtrat Rate mL/min Glucose Level 123 Lactic Acid Level 1.9 Calcium Level 7.3 L Phosphorus Level 4.5 Magnesium Level 2.2 Total Bilirubin 0.5 Direct Bilirubin 0.00 # Indirect 0.5 Bilirubin Aspartate Amino 233 #H Transf (AST/SGOT) Alanine 602 H Aminotransferase (ALT/SGPT) Alkaline 110 Phosphatase Creatine Kinase 107 Creatine Kinase 4.0 Index Creatinine Kinase 4.27 H MB (Mass) Troponin I 0.019 Total Protein 4.8 L Albumin 2.5 L Globulin 2.30 Albumin/Globulin 1.08 Ratio Triglycerides 109 Level Cholesterol Level 74 L LDL Cholesterol, 25 Calculated HDL Cholesterol 27 L Cholesterol/HDL 2.7 Ratio Hepatitis B NEGATIVE Surface Antigen Hepatitis B Core NEGATIVE Total Antibody Hepatitis C NEGATIVE Antibody Test 04/22/19 08:42 04/22/19 11:44 04/22/19 12:00 04/22/19 12:11 Prothrombin Time 18.0 H Prothrombin Time 1.4 Ratio INR International 1.48 Normalized Ratio Activated 34.0 Partial Thrombopl ast Time Fibrinogen 496.0 #H Amylase Level 38 Lipase 52 White Blood Count 11.0 H Red Blood Count 4.33 L Hemoglobin 12.8 L Hematocrit 39.1 L Mean Corpuscular 90.3 Volume Mean Corpuscular 29.6 Hemoglobin Mean Corpuscular 32.7 Hemoglobin Concen t Red Cell 13.9 Distribution Width Platelet Count 164 # Mean Platelet 10.6 H Volume Immature 0.500 H Granulocytes % Neutrophils % 85.0 H Lymphocytes % 6.7 L Monocytes % 7.4 Eosinophils % 0.2 Basophils % 0.2 Nucleated Red 0.0 Blood Cells % Immature 0.060 H Granulocytes # Neutrophils # 9.4 H Lymphocytes # 0.7 L Monocytes # 0.8 Eosinophils # 0.0 Basophils # 0.0 Nucleated Red 0.0 Blood Cells # Sodium Level 141 Potassium Level 3.8 Chloride Level 113 H Carbon Dioxide 20 L Level Anion Gap 8 Blood Urea 30 H Nitrogen Creatinine 1.06 Est Glomerular > 60 Filtrat Rate mL/min Glucose Level 113 Lactic Acid Level 2.1 *H Calcium Level 7.2 L Phosphorus Level 4.9 Magnesium Level 2.1 Troponin I < 0.012 Blood Gas Blood arterial Specimen Source Arterial Blood 04/22/2019 12:20: Date Drawn 07 PM Arterial Blood pH 7.443 (Temp corrected) Arterial Blood 25.3 L pCO2 (Temp correct) Arterial Blood 62.0 L pO2 (Temp corrected) Arterial Blood 17.3 L HCO3 Arterial Blood -5.9 L Base Excess Arterial Blood 93.9 L Oxygen Saturation Сергей Test N/A Arterial Blood Right Brachial Gas Puncture Site Arterial 0.3 Blood Carboxyhemo globin Arterial Blood 0.2 Methemoglobin Blood Gas A-a O2 124.1 H Differential Oxyhemoglobin 93.4 Percent Blood Gas 34.5 Temperature Blood Gas 20.0 Respiration Rate Blood Gas Actual 20 Respiration Rate Blood Gas VENT - AC Modality FiO2 30.0 Blood Gas Tidal 500.0 Volume Blood Gas Low 5.0 PEEP Setting Blood Gas CW Notified Whom Blood Gas 04/22/2019 12:36: Notified Time 12 PM Bedside Glucose 114 Subjective 24 Hr Interval Summary Free Text/Dictation Conitnues hypohtermia protocol, rewarming Exam/Review of Systems Exam Vitals Vital Signs Date Temp Pulse Resp B/P (MAP) Pulse Ox O2 O2 Flow FiO2 Time Delivery Rate 04/22/19 50 20 114/58 99 13:45 (76) 04/22/19 94.4 13:00 04/22/19 30 10:12 04/21/19 Mechanical 00:40 Ventilator Intake and Output 04/21/19 04/21/19 04/22/19 1515:00 23:00 07:00 IntakeIntake Total 1044.775 ml 1064.51 ml 1304.04 ml OutputOutput Total 759 ml 283 ml 160 ml BalanceBalance 285.775 ml 781.51 ml 1144.04 ml Results Results 24hrs Laboratory Tests Test 04/21/19 14:49 04/21/19 17:00 04/21/19 18:00 04/21/19 18:32 White Blood Count 9.9 # 7.9 # Red Blood Count 4.21 L 4.13 L Hemoglobin 12.4 L 12.2 L Hematocrit 38.6 L 37.5 L Mean Corpuscular 91.7 90.8 Volume Mean Corpuscular 29.5 29.5 Hemoglobin Mean Corpuscular 32.1 32.5 Hemoglobin Concen t Red Cell 13.9 13.6 Distribution Width Platelet Count 126 L 123 L Mean Platelet 10.0 10.5 H Volume Immature 0.400 0.600 H Granulocytes % Neutrophils % 85.4 H 81.9 H Lymphocytes % 7.1 L 10.3 L Monocytes % 6.9 6.5 Eosinophils % 0.0 0.4 Basophils % 0.2 0.3 Nucleated Red 0.0 0.0 Blood Cells % Immature 0.040 H 0.050 H Granulocytes # Neutrophils # 8.5 H 6.4 Lymphocytes # 0.7 L 0.8 Monocytes # 0.7 0.5 Eosinophils # 0.0 0.0 Basophils # 0.0 0.0 Nucleated Red 0.0 0.0 Blood Cells # Sodium Level 140 140 Potassium Level 3.7 4.0 Chloride Level 112 H 110 Carbon Dioxide 22 22 Level Anion Gap 6 8 Blood Urea 30 H 31 H Nitrogen Creatinine 1.11 1.13 Est Glomerular > 60 > 60 Filtrat Rate mL/min Glucose Level 128 # 125 Lactic Acid Level 1.4 1.7 Calcium Level 6.6 L 7.0 L Phosphorus Level 4.3 4.4 Magnesium Level 2.1 2.3 Creatine Kinase 127 122 Creatine Kinase 3.2 3.6 Index Creatinine Kinase 4.03 H 4.35 H MB (Mass) Troponin I 0.030 < 0.012 Bedside Glucose 107 Blood Gas Blood arterial Specimen Source Arterial Blood 04/21/2019 5:40:1 Date Drawn 3 PM Arterial Blood pH 7.488 H (Temp corrected) Arterial Blood 22.8 L pCO2 (Temp correct) Arterial Blood 119.1 H pO2 (Temp corrected) Arterial Blood 17.7 L HCO3 Arterial Blood -5.4 L Base Excess Arterial Blood 98.8 H Oxygen Saturation Сергей Test ACCEPTAB Arterial Blood Right Radial Gas Puncture Site Arterial 0.3 Blood Carboxyhemo globin Arterial Blood 0.1 Methemoglobin Blood Gas A-a O2 290.3 H Differential Oxyhemoglobin 98.4 Percent Blood Gas 32.1 Temperature Blood Gas 20.0 Respiration Rate Blood Gas Actual 20 Respiration Rate Blood Gas VENT - AC Modality FiO2 60.0 Blood Gas Tidal 500.0 Volume Blood Gas Low 5.0 PEEP Setting Blood Gas CAITLYN HARRISON Notified Whom Blood Gas 04/21/2019 5:54:2 Notified Time 3 PM Test 04/21/19 20:36 04/21/19 21:03 04/22/19 00:00 04/22/19 01:07 Bedside Glucose 109 112 Prothrombin Time 18.8 H Prothrombin Time 1.5 Ratio INR International 1.56 Normalized Ratio Activated 34.3 Partial Thrombopl ast Time Fibrinogen 439.0 # Amylase Level 43 Lipase 52 White Blood Count 8.4 Red Blood Count 4.30 L Hemoglobin 12.6 L Hematocrit 38.7 L Mean Corpuscular 90.0 Volume Mean Corpuscular 29.3 Hemoglobin Mean Corpuscular 32.6 Hemoglobin Concen t Red Cell 13.8 Distribution Width Platelet Count 120 L Mean Platelet 10.5 H Volume Immature 0.400 Granulocytes % Neutrophils % 82.7 H Lymphocytes % 8.9 L Monocytes % 7.3 Eosinophils % 0.5 Basophils % 0.2 Nucleated Red 0.0 Blood Cells % Immature 0.030 Granulocytes # Neutrophils # 7.0 Lymphocytes # 0.8 Monocytes # 0.6 Eosinophils # 0.0 Basophils # 0.0 Nucleated Red 0.0 Blood Cells # Blood Gas Blood arterial Specimen Source Arterial Blood 04/22/2019 12:00: Date Drawn 45 AM Arterial Blood pH 7.498 H (Temp corrected) Arterial Blood 23.6 L pCO2 (Temp correct) Arterial Blood 92.8 pO2 (Temp corrected) Arterial Blood 18.8 L HCO3 Arterial Blood -4.3 L Base Excess Arterial Blood 98.1 H Oxygen Saturation Сергей Test ACCEPTAB Arterial Blood Right Radial Gas Puncture Site Arterial 0.3 Blood Carboxyhemo globin Arterial Blood 0.2 Methemoglobin Blood Gas A-a O2 169.7 H Differential Oxyhemoglobin 97.6 Percent Blood Gas 32.2 Temperature Blood Gas 20.0 Respiration Rate Blood Gas Actual 20 Respiration Rate Blood Gas VENT - AC Modality FiO2 40.0 Blood Gas Tidal 500.0 Volume Blood Gas Low 5.0 PEEP Setting Blood Gas MG Notified Whom Blood Gas 04/22/2019 12:06: Notified Time 43 AM Sodium Level 139 Potassium Level 3.8 Chloride Level 112 H Carbon Dioxide 21 Level Anion Gap 6 Blood Urea 30 H Nitrogen Creatinine 1.08 Est Glomerular > 60 Filtrat Rate mL/min Glucose Level 122 Lactic Acid Level 1.7 Calcium Level 7.5 L Phosphorus Level 4.6 Magnesium Level 2.2 Troponin I 0.026 Test 04/22/19 03:11 04/22/19 05:34 04/22/19 06:00 04/22/19 07:50 Urine Color YELLOW Urine Clarity CLOUDY A Urine pH 5.0 Urine Specific 1.028 [place] Urine Ketones TRACE A Urine Nitrite NEGATIVE Urine Bilirubin NEGATIVE Urine NEGATIVE Urobilinogen Urine Leukocyte NEGATIVE Esterase Urine Microscopic 5 RBC Urine Microscopic 2 WBC Urine Uric Acid MANY A Crystals Urine Hemoglobin 1+ H Urine Random 94.20 Creatinine Urine Random 49 Sodium Urine Glucose NEGATIVE Urine Total 24.0 H Protein Bedside Glucose 103 110 White Blood Count 9.9 Red Blood Count 4.40 L Hemoglobin 13.0 L Hematocrit 39.6 L Mean Corpuscular 90.0 Volume Mean Corpuscular 29.5 Hemoglobin Mean Corpuscular 32.8 Hemoglobin Concen t Red Cell 13.5 Distribution Width Platelet Count 136 L Mean Platelet 10.5 H Volume Immature 0.400 Granulocytes % Neutrophils % 87.4 H Lymphocytes % 5.1 L Monocytes % 6.8 Eosinophils % 0.1 Basophils % 0.2 Nucleated Red 0.0 Blood Cells % Immature 0.040 H Granulocytes # Neutrophils # 8.6 H Lymphocytes # 0.5 L Monocytes # 0.7 Eosinophils # 0.0 Basophils # 0.0 Nucleated Red 0.0 Blood Cells # Blood Gas Blood arterial Specimen Source Arterial Blood 04/22/2019 6:00:1 Date Drawn 4 AM Arterial Blood pH 7.449 (Temp corrected) Arterial Blood 24.4 L pCO2 (Temp correct) Arterial Blood 57.2 L pO2 (Temp corrected) Arterial Blood 17.2 L HCO3 Arterial Blood -6.3 L Base Excess Arterial Blood 94.4 L Oxygen Saturation Сергей Test ACCEPTAB Arterial Blood Left Radial Gas Puncture Site Arterial 0.2 Blood Carboxyhemo globin Arterial Blood 0.2 Methemoglobin Blood Gas A-a O2 203.8 H Differential Oxyhemoglobin 94.0 Percent Blood Gas 32.9 Temperature Blood Gas 20.0 Respiration Rate Blood Gas Actual 20 Respiration Rate Blood Gas VENT - AC Modality FiO2 40.0 Blood Gas Tidal 500.0 Volume Blood Gas Low 5.0 PEEP Setting Blood Gas UP Notified Whom Blood Gas 04/22/2019 6:07:0 Notified Time 4 AM Sodium Level 141 Potassium Level 3.7 Chloride Level 112 H Carbon Dioxide 20 L Level Anion Gap 9 Blood Urea 29 H Nitrogen Creatinine 1.04 Est Glomerular > 60 Filtrat Rate mL/min Glucose Level 123 Lactic Acid Level 1.9 Calcium Level 7.3 L Phosphorus Level 4.5 Magnesium Level 2.2 Total Bilirubin 0.5 Direct Bilirubin 0.00 # Indirect 0.5 Bilirubin Aspartate Amino 233 #H Transf (AST/SGOT) Alanine 602 H Aminotransferase (ALT/SGPT) Alkaline 110 Phosphatase Creatine Kinase 107 Creatine Kinase 4.0 Index Creatinine Kinase 4.27 H MB (Mass) Troponin I 0.019 Total Protein 4.8 L Albumin 2.5 L Globulin 2.30 Albumin/Globulin 1.08 Ratio Triglycerides 109 Level Cholesterol Level 74 L LDL Cholesterol, 25 Calculated HDL Cholesterol 27 L Cholesterol/HDL 2.7 Ratio Hepatitis B NEGATIVE Surface Antigen Hepatitis B Core NEGATIVE Total Antibody Hepatitis C NEGATIVE Antibody Test 04/22/19 08:42 04/22/19 11:44 04/22/19 12:00 04/22/19 12:11 Prothrombin Time 18.0 H Prothrombin Time 1.4 Ratio INR International 1.48 Normalized Ratio Activated 34.0 Partial Thrombopl ast Time Fibrinogen 496.0 #H Amylase Level 38 Lipase 52 White Blood Count 11.0 H Red Blood Count 4.33 L Hemoglobin 12.8 L Hematocrit 39.1 L Mean Corpuscular 90.3 Volume Mean Corpuscular 29.6 Hemoglobin Mean Corpuscular 32.7 Hemoglobin Concen t Red Cell 13.9 Distribution Width Platelet Count 164 # Mean Platelet 10.6 H Volume Immature 0.500 H Granulocytes % Neutrophils % 85.0 H Lymphocytes % 6.7 L Monocytes % 7.4 Eosinophils % 0.2 Basophils % 0.2 Nucleated Red 0.0 Blood Cells % Immature 0.060 H Granulocytes # Neutrophils # 9.4 H Lymphocytes # 0.7 L Monocytes # 0.8 Eosinophils # 0.0 Basophils # 0.0 Nucleated Red 0.0 Blood Cells # Sodium Level 141 Potassium Level 3.8 Chloride Level 113 H Carbon Dioxide 20 L Level Anion Gap 8 Blood Urea 30 H Nitrogen Creatinine 1.06 Est Glomerular > 60 Filtrat Rate mL/min Glucose Level 113 Lactic Acid Level 2.1 *H Calcium Level 7.2 L Phosphorus Level 4.9 Magnesium Level 2.1 Troponin I < 0.012 Blood Gas Blood arterial Specimen Source Arterial Blood 04/22/2019 12:20: Date Drawn 07 PM Arterial Blood pH 7.443 (Temp corrected) Arterial Blood 25.3 L pCO2 (Temp correct) Arterial Blood 62.0 L pO2 (Temp corrected) Arterial Blood 17.3 L HCO3 Arterial Blood -5.9 L Base Excess Arterial Blood 93.9 L Oxygen Saturation Сергей Test N/A Arterial Blood Right Brachial Gas Puncture Site Arterial 0.3 Blood Carboxyhemo globin Arterial Blood 0.2 Methemoglobin Blood Gas A-a O2 124.1 H Differential Oxyhemoglobin 93.4 Percent Blood Gas 34.5 Temperature Blood Gas 20.0 Respiration Rate Blood Gas Actual 20 Respiration Rate Blood Gas VENT - AC Modality FiO2 30.0 Blood Gas Tidal 500.0 Volume Blood Gas Low 5.0 PEEP Setting Blood Gas Notified Whom Blood Gas 04/22/2019 12:36: Notified Time 12 PM Bedside Glucose 114 Medications Medication Current Medications Sodium Chloride 1,000 ml @ 100 mls/hr Q10H IV Last administered on 04/22/19at 11:06; Admin Dose 100 MLS/HR; Start 04/20/19 at 23:30 Ondansetron HCl (Zofran Inj) 4 mg Q6H PRN IV NAUSEA AND/OR VOMITING; Start 04/20/19 at 23:30 Albuterol (Ventolin Hfa) 4 puff Q2H RESP THERAPY PRN INH SHORTNESS OF BREATH; Start 04/20/19 at 23:30 Ipratropium [place] (Atrovent Hfa) 4 puff Q2H RESP THERAPY PRN INH SHORTNESS OF BREATH; Start 04/20/19 at 23:30 Acetaminophen (Tylenol Liquid) 650 mg Q6H PRN NGT PAIN LEVEL 1-3 OR FEVER; Start 04/20/19 at 23:30 Famotidine (Pepcid Iv) 20 mg Q12 IV Last administered on 04/22/19at 08:00; Admin Dose 20 MG; Start 04/20/19 at 23:30 Norepinephrine 16 mg/Dextrose 250 ml @ 0.94 mls/hr TITRATE IV Last administered on 04/21/19 21:24; Admin Dose 1.88 MLS/HR; Start 04/21/19 at 00:00 Acetaminophen (Tylenol Liquid) 650 mg Q8 NGT ; Start 04/21/19 at 06:00 Buspirone HCl (Buspar) 30 mg Q8 PO ; Start 04/21/19 at 06:00 Eye Lubricant (Artificial Tears Oph) 2 drop Q6H BOTH EYES Last administered on 04/22/19 11:04; Admin Dose 2 DROP; Start 04/21/19 at 06:00 Eye Lubricant ([place] Oint) 1 applic Q6 BOTH EYES Last administered on 04/22/19 11:04; Admin Dose 1 APPLIC; Start 04/21/19 at 06:00 Meperidine HCl (Demerol) 12.5 mg Q2H PRN IV shivering Last administered on 04/21/19at 15:59; Admin Dose 12.5 MG; Start 04/21/19 at 01:00 Propofol 100 ml @ 3 mls/hr TITRATE PRN IV AGITATION Last administered on 04/22/19 13:45; Admin Dose 18 MLS/HR; Start 04/21/19 at 01:30 Fentanyl 100 ml @ 2.5 mls/hr TITRATE PRN IV PAIN Last administered on 04/22/19 04:29; Admin Dose 5 MLS/HR; Start 04/21/19 at 02:00 Vancomycin HCl (Vanco Iv Per Pharmacy) VANCOMYCIN PER PHARMACY PER PROTOCOL XX ; Start 04/21/19 at 02:30 Piperacillin Sod/ Tazobactam Sod 100 ml @ 200 mls/hr Q6 IVPB Last administered on 04/22/19at 11:05; Admin Dose 200 MLS/HR; Start 04/21/19 at 06:00 Aspirin (Aspirin) 300 mg DAILY DC Last administered on 04/22/19at 08:00; Admin Dose 300 MG; Start 04/21/19 at 09:00 Clopidogrel Bisulfate (plaVIX) 75 mg DAILY NGT Last administered on 04/22/19at 08:00; Admin Dose 75 MG; Start 04/21/19 at 09:00 Vancomycin HCl 1.5 gm/Sodium Chloride 250 ml @ 83.333 mls/ hr Q24H IVPB Last administered on 04/21/19at 15:40; Admin Dose 83.333 MLS/HR; Start 04/21/19 at 16:00 Miscellaneous Information (*Rx Drug Level Order Reminder*) VANCOMYCIN TROUGH AT 1500 1500 ONCE XX ; Start 04/23/19 at 15:00; Stop 04/23/19 at 15:01 INGA MCCARTNEY MD Apr 22, 2019 14:02
--- NOTE | 2019-04-22 14:51 | CONS ---
Consult Date/Type/Reason Admit Date/Time Apr 20, 2019 at 23:27 Initial Consult Date 04/21/19 Requesting Provider: FERMIN WANG Date/Time of Note DATE: 04/22/19 TIME: 14:34 Subjective interventional cardiology follow up note/ critical care note S D/W staff and tele was reviewed. Patient remains intubated on the vent in ICU. He is still hypotensive and on Levophed drip Patient is on rewarming part of hypothermia protocol. Nonresponsive. Objective General: Status post intubation on the vent. Sedated HEENT: NC/AT. NECK:. no stridor. CV: RRR. systolic murmur; no gallop or rubs. PULM: no wheezing + rhonchi. GI: SOFT, NT, ND, no rebound or guarding Extremity: trace B/L LE edema. no clubbing. neuro: Sedated Psych: calm rectal: deferred : normal EKG shows atrial paced with ventricular conduction test Chest x-ray shows: New endotracheal tube in appropriate position. Nasogastric tube within the stomach. Extensive right upper lobe consolidation. Patchy left upper lobe and bilateral lower lobe infiltrates. Abdominal CT shows: Mild nonspecific gallbladder wall thickening. Clinical correlation is recommended and further evaluation can be made by ultrasound. Diastasis recti with mild to moderate ventral abdominal hernia containing partial loops of bowel. There is no bowel obstruction. Bilateral small to moderate pleural effusion with underlying atelectasis/consolidations. Mild cardiomegaly with calcifications at the left ventricular apex suggestive of old infarct. Mild pulmonary venous congestion. Bilateral adrenal nodules. Vascular calcifications reflective of atherosclerosis. Bilateral small inguinal hernias containing fat. Bilateral scrotal hydroceles. Echocardiogram done 04/21/2019 was personally reviewed which shows: Dilated LV with severe LV dysfunction ejection fraction of 20% Objective Vitals Vital Signs Date Temp Pulse Resp B/P (MAP) Pulse Ox O2 O2 Flow FiO2 Time Delivery Rate 04/22/19 57 20 97 14:15 04/22/19 95.9 142/85 14:00 (104) 04/22/19 30 10:12 04/21/19 Mechanical 00:40 Ventilator Intake and Output 04/21/19 04/21/19 04/22/19 1515:00 23:00 07:00 IntakeIntake Total 1044.775 ml 1064.51 ml 1304.04 ml OutputOutput Total 759 ml 283 ml 160 ml BalanceBalance 285.775 ml 781.51 ml 1144.04 ml Results/Medications Result Diagram: 04/22/19 1144 04/22/19 1144 Results 24 hrs Laboratory Tests Test 04/21/19 14:49 04/21/19 17:00 04/21/19 18:00 04/21/19 18:32 White Blood Count 9.9 # 7.9 # Red Blood Count 4.21 L 4.13 L Hemoglobin 12.4 L 12.2 L Hematocrit 38.6 L 37.5 L Mean Corpuscular 91.7 90.8 Volume Mean Corpuscular 29.5 29.5 Hemoglobin Mean Corpuscular 32.1 32.5 Hemoglobin Concen t Red Cell 13.9 13.6 Distribution Width Platelet Count 126 L 123 L Mean Platelet 10.0 10.5 H Volume Immature 0.400 0.600 H Granulocytes % Neutrophils % 85.4 H 81.9 H Lymphocytes % 7.1 L 10.3 L Monocytes % 6.9 6.5 Eosinophils % 0.0 0.4 Basophils % 0.2 0.3 Nucleated Red 0.0 0.0 Blood Cells % Immature 0.040 H 0.050 H Granulocytes # Neutrophils # 8.5 H 6.4 Lymphocytes # 0.7 L 0.8 Monocytes # 0.7 0.5 Eosinophils # 0.0 0.0 Basophils # 0.0 0.0 Nucleated Red 0.0 0.0 Blood Cells # Sodium Level 140 140 Potassium Level 3.7 4.0 Chloride Level 112 H 110 Carbon Dioxide 22 22 Level Anion Gap 6 8 Blood Urea 30 H 31 H Nitrogen Creatinine 1.11 1.13 Est Glomerular > 60 > 60 Filtrat Rate mL/min Glucose Level 128 # 125 Lactic Acid Level 1.4 1.7 Calcium Level 6.6 L 7.0 L Phosphorus Level 4.3 4.4 Magnesium Level 2.1 2.3 Creatine Kinase 127 122 Creatine Kinase 3.2 3.6 Index Creatinine Kinase 4.03 H 4.35 H MB (Mass) Troponin I 0.030 < 0.012 Bedside Glucose 107 Blood Gas Blood arterial Specimen Source Arterial Blood 04/21/2019 5:40:1 Date Drawn 3 PM Arterial Blood pH 7.488 H (Temp corrected) Arterial Blood 22.8 L pCO2 (Temp correct) Arterial Blood 119.1 H pO2 (Temp corrected) Arterial Blood 17.7 L HCO3 Arterial Blood -5.4 L Base Excess Arterial Blood 98.8 H Oxygen Saturation Сергей Test ACCEPTAB Arterial Blood Right Radial Gas Puncture Site Arterial 0.3 Blood Carboxyhemo globin Arterial Blood 0.1 Methemoglobin Blood Gas A-a O2 290.3 H Differential Oxyhemoglobin 98.4 Percent Blood Gas 32.1 Temperature Blood Gas 20.0 Respiration Rate Blood Gas Actual 20 Respiration Rate Blood Gas VENT - AC Modality FiO2 60.0 Blood Gas Tidal 500.0 Volume Blood Gas Low 5.0 PEEP Setting Blood Gas CAITLYN HARRISON Notified Whom Blood Gas 04/21/2019 5:54:2 Notified Time 3 PM Test 04/21/19 20:36 04/21/19 21:03 04/22/19 00:00 04/22/19 01:07 Bedside Glucose 109 112 Prothrombin Time 18.8 H Prothrombin Time 1.5 Ratio INR International 1.56 Normalized Ratio Activated 34.3 Partial Thrombopl ast Time Fibrinogen 439.0 # Amylase Level 43 Lipase 52 White Blood Count 8.4 Red Blood Count 4.30 L Hemoglobin 12.6 L Hematocrit 38.7 L Mean Corpuscular 90.0 Volume Mean Corpuscular 29.3 Hemoglobin Mean Corpuscular 32.6 Hemoglobin Concen t Red Cell 13.8 Distribution Width Platelet Count 120 L Mean Platelet 10.5 H Volume Immature 0.400 Granulocytes % Neutrophils % 82.7 H Lymphocytes % 8.9 L Monocytes % 7.3 Eosinophils % 0.5 Basophils % 0.2 Nucleated Red 0.0 Blood Cells % Immature 0.030 Granulocytes # Neutrophils # 7.0 Lymphocytes # 0.8 Monocytes # 0.6 Eosinophils # 0.0 Basophils # 0.0 Nucleated Red 0.0 Blood Cells # Blood Gas Blood arterial Specimen Source Arterial Blood 04/22/2019 12:00: Date Drawn 45 AM Arterial Blood pH 7.498 H (Temp corrected) Arterial Blood 23.6 L pCO2 (Temp correct) Arterial Blood 92.8 pO2 (Temp corrected) Arterial Blood 18.8 L HCO3 Arterial Blood -4.3 L Base Excess Arterial Blood 98.1 H Oxygen Saturation Сергей Test ACCEPTAB Arterial Blood Right Radial Gas Puncture Site Arterial 0.3 Blood Carboxyhemo globin Arterial Blood 0.2 Methemoglobin Blood Gas A-a O2 169.7 H Differential Oxyhemoglobin 97.6 Percent Blood Gas 32.2 Temperature Blood Gas 20.0 Respiration Rate Blood Gas Actual 20 Respiration Rate Blood Gas VENT - AC Modality FiO2 40.0 Blood Gas Tidal 500.0 Volume Blood Gas Low 5.0 PEEP Setting Blood Gas MG Notified Whom Blood Gas 04/22/2019 12:06: Notified Time 43 AM Sodium Level 139 Potassium Level 3.8 Chloride Level 112 H Carbon Dioxide 21 Level Anion Gap 6 Blood Urea 30 H Nitrogen Creatinine 1.08 Est Glomerular > 60 Filtrat Rate mL/min Glucose Level 122 Lactic Acid Level 1.7 Calcium Level 7.5 L Phosphorus Level 4.6 Magnesium Level 2.2 Troponin I 0.026 Test 04/22/19 03:11 04/22/19 05:34 04/22/19 06:00 04/22/19 07:50 Urine Color YELLOW Urine Clarity CLOUDY A Urine pH 5.0 Urine Specific 1.028 [place] Urine Ketones TRACE A Urine Nitrite NEGATIVE Urine Bilirubin NEGATIVE Urine NEGATIVE Urobilinogen Urine Leukocyte NEGATIVE Esterase Urine Microscopic 5 RBC Urine Microscopic 2 WBC Urine Uric Acid MANY A Crystals Urine Hemoglobin 1+ H Urine Random 94.20 Creatinine Urine Random 49 Sodium Urine Glucose NEGATIVE Urine Total 24.0 H Protein Bedside Glucose 103 110 White Blood Count 9.9 Red Blood Count 4.40 L Hemoglobin 13.0 L Hematocrit 39.6 L Mean Corpuscular 90.0 Volume Mean Corpuscular 29.5 Hemoglobin Mean Corpuscular 32.8 Hemoglobin Concen t Red Cell 13.5 Distribution Width Platelet Count 136 L Mean Platelet 10.5 H Volume Immature 0.400 Granulocytes % Neutrophils % 87.4 H Lymphocytes % 5.1 L Monocytes % 6.8 Eosinophils % 0.1 Basophils % 0.2 Nucleated Red 0.0 Blood Cells % Immature 0.040 H Granulocytes # Neutrophils # 8.6 H Lymphocytes # 0.5 L Monocytes # 0.7 Eosinophils # 0.0 Basophils # 0.0 Nucleated Red 0.0 Blood Cells # Blood Gas Blood arterial Specimen Source Arterial Blood 04/22/2019 6:00:1 Date Drawn 4 AM Arterial Blood pH 7.449 (Temp corrected) Arterial Blood 24.4 L pCO2 (Temp correct) Arterial Blood 57.2 L pO2 (Temp corrected) Arterial Blood 17.2 L HCO3 Arterial Blood -6.3 L Base Excess Arterial Blood 94.4 L Oxygen Saturation Сергей Test ACCEPTAB Arterial Blood Left Radial Gas Puncture Site Arterial 0.2 Blood Carboxyhemo globin Arterial Blood 0.2 Methemoglobin Blood Gas A-a O2 203.8 H Differential Oxyhemoglobin 94.0 Percent Blood Gas 32.9 Temperature Blood Gas 20.0 Respiration Rate Blood Gas Actual 20 Respiration Rate Blood Gas VENT - AC Modality FiO2 40.0 Blood Gas Tidal 500.0 Volume Blood Gas Low 5.0 PEEP Setting Blood Gas UP Notified Whom Blood Gas 04/22/2019 6:07:0 Notified Time 4 AM Sodium Level 141 Potassium Level 3.7 Chloride Level 112 H Carbon Dioxide 20 L Level Anion Gap 9 Blood Urea 29 H Nitrogen Creatinine 1.04 Est Glomerular > 60 Filtrat Rate mL/min Glucose Level 123 Lactic Acid Level 1.9 Calcium Level 7.3 L Phosphorus Level 4.5 Magnesium Level 2.2 Total Bilirubin 0.5 Direct Bilirubin 0.00 # Indirect 0.5 Bilirubin Aspartate Amino 233 #H Transf (AST/SGOT) Alanine 602 H Aminotransferase (ALT/SGPT) Alkaline 110 Phosphatase Creatine Kinase 107 Creatine Kinase 4.0 Index Creatinine Kinase 4.27 H MB (Mass) Troponin I 0.019 Total Protein 4.8 L Albumin 2.5 L Globulin 2.30 Albumin/Globulin 1.08 Ratio Triglycerides 109 Level Cholesterol Level 74 L LDL Cholesterol, 25 Calculated HDL Cholesterol 27 L Cholesterol/HDL 2.7 Ratio Hepatitis B NEGATIVE Surface Antigen Hepatitis B Core NEGATIVE Total Antibody Hepatitis C NEGATIVE Antibody Test 04/22/19 08:42 04/22/19 11:44 04/22/19 12:00 04/22/19 12:11 Prothrombin Time 18.0 H Prothrombin Time 1.4 Ratio INR International 1.48 Normalized Ratio Activated 34.0 Partial Thrombopl ast Time Fibrinogen 496.0 #H Amylase Level 38 Lipase 52 White Blood Count 11.0 H Red Blood Count 4.33 L Hemoglobin 12.8 L Hematocrit 39.1 L Mean Corpuscular 90.3 Volume Mean Corpuscular 29.6 Hemoglobin Mean Corpuscular 32.7 Hemoglobin Concen t Red Cell 13.9 Distribution Width Platelet Count 164 # Mean Platelet 10.6 H Volume Immature 0.500 H Granulocytes % Neutrophils % 85.0 H Lymphocytes % 6.7 L Monocytes % 7.4 Eosinophils % 0.2 Basophils % 0.2 Nucleated Red 0.0 Blood Cells % Immature 0.060 H Granulocytes # Neutrophils # 9.4 H Lymphocytes # 0.7 L Monocytes # 0.8 Eosinophils # 0.0 Basophils # 0.0 Nucleated Red 0.0 Blood Cells # Sodium Level 141 Potassium Level 3.8 Chloride Level 113 H Carbon Dioxide 20 L Level Anion Gap 8 Blood Urea 30 H Nitrogen Creatinine 1.06 Est Glomerular > 60 Filtrat Rate mL/min Glucose Level 113 Lactic Acid Level 2.1 *H Calcium Level 7.2 L Phosphorus Level 4.9 Magnesium Level 2.1 Troponin I < 0.012 Blood Gas Blood arterial Specimen Source Arterial Blood 04/22/2019 12:20: Date Drawn 07 PM Arterial Blood pH 7.443 (Temp corrected) Arterial Blood 25.3 L pCO2 (Temp correct) Arterial Blood 62.0 L pO2 (Temp corrected) Arterial Blood 17.3 L HCO3 Arterial Blood -5.9 L Base Excess Arterial Blood 93.9 L Oxygen Saturation Сергей Test N/A Arterial Blood Right Brachial Gas Puncture Site Arterial 0.3 Blood Carboxyhemo globin Arterial Blood 0.2 Methemoglobin Blood Gas A-a O2 124.1 H Differential Oxyhemoglobin 93.4 Percent Blood Gas 34.5 Temperature Blood Gas 20.0 Respiration Rate Blood Gas Actual 20 Respiration Rate Blood Gas VENT - AC Modality FiO2 30.0 Blood Gas Tidal 500.0 Volume Blood Gas Low 5.0 PEEP Setting Blood Gas CW Notified Whom Blood Gas 04/22/2019 12:36: Notified Time 12 PM Bedside Glucose 114 Home Meds Reported Medications Atorvastatin* (Atorvastatin*) 40 Mg Tablet, 40 MG PO QHS, #30 TAB 04/21/19 Clopidogrel Bisulfate (Clopidogrel) 75 Mg Tablet, 75 MG PO DAILY, #30 TAB 04/21/19 Amiodarone Hcl* (Amiodarone Hcl*) 200 Mg Tablet, 200 MG PO BID, #60 TAB 04/21/19 Aspirin (Low Dose Aspirin) 81 Mg Tablet.dr, 81 MG PO DAILY, #30 TAB 03/21/19 Nitroglycerin* (Nitrostat*) 0.4 Mg Tab.subl, 0.4 MG SL Q5MIN PRN for CHEST PAIN, BOTTLE 03/21/19 Lisinopril* (Lisinopril*) 5 Mg Tablet, 5 MG PO BID, #30 TAB 03/21/19 Cyanocobalamin* (Vitamin B12*) 500 Mcg Tab, 2000 MCG PO DAILY, TAB 03/21/19 Bisoprolol Fumarate* (Zebeta*) 5 Mg Tablet, 5 MG PO BID, TAB 03/21/19 Discontinued Reported Medications Simvastatin* (Zocor*) 40 Mg Tablet, 40 MG PO QHS, #30 TAB 03/21/19 Medications Current Medications Sodium Chloride 1,000 ml @ 100 mls/hr Q10H IV Last administered on 04/22/19 11:06; Admin Dose 100 MLS/HR; Start 04/20/19 at 23:30 Ondansetron HCl (Zofran Inj) 4 mg Q6H PRN IV NAUSEA AND/OR VOMITING; Start 04/20/19 at 23:30 Albuterol (Ventolin Hfa) 4 puff Q2H RESP THERAPY PRN INH SHORTNESS OF BREATH; Start 04/20/19 at 23:30 Ipratropium [place] (Atrovent Hfa) 4 puff Q2H RESP THERAPY PRN INH SHORTNESS OF BREATH; Start 04/20/19 at 23:30 Acetaminophen (Tylenol Liquid) 650 mg Q6H PRN NGT PAIN LEVEL 1-3 OR FEVER; Start 04/20/19 at 23:30 Famotidine (Pepcid Iv) 20 mg Q12 IV Last administered on 04/22/19 08:00; Admin Dose 20 MG; Start 04/20/19 at 23:30 Norepinephrine 16 mg/Dextrose 250 ml @ 0.94 mls/hr TITRATE IV Last administered on 04/21/19 21:24; Admin Dose 1.88 MLS/HR; Start 04/21/19 at 00:00 Acetaminophen (Tylenol Liquid) 650 mg Q8 NGT ; Start 04/21/19 at 06:00 Buspirone HCl (Buspar) 30 mg Q8 PO ; Start 04/21/19 at 06:00 Eye Lubricant (Artificial Tears Oph) 2 drop Q6H BOTH EYES Last administered on 04/22/19 11:04; Admin Dose 2 DROP; Start 04/21/19 at 06:00 Eye Lubricant ([place]wa Oint) 1 applic Q6 BOTH EYES Last administered on 04/22/19 11:04; Admin Dose 1 APPLIC; Start 04/21/19 at 06:00 Meperidine HCl (Demerol) 12.5 mg Q2H PRN IV shivering Last administered on 6/13/19at 15:59; Admin Dose 12.5 MG; Start 04/21/19 at 01:00 Propofol 100 ml @ 3 mls/hr TITRATE PRN IV AGITATION Last administered on 04/22/19at 13:45; Admin Dose 18 MLS/HR; Start 04/21/19 at 01:30 Fentanyl 100 ml @ 2.5 mls/hr TITRATE PRN IV PAIN Last administered on 04/22/19 04:29; Admin Dose 5 MLS/HR; Start 04/21/19 at 02:00 Vancomycin HCl (Vanco Iv Per Pharmacy) VANCOMYCIN PER PHARMACY PER PROTOCOL XX ; Start 04/21/19 at 02:30 Piperacillin Sod/ Tazobactam Sod 100 ml @ 200 mls/hr Q6 IVPB Last administered on 04/22/19at 11:05; Admin Dose 200 MLS/HR; Start 04/21/19 at 06:00 Aspirin (Aspirin) 300 mg DAILY GA Last administered on 04/22/19at 08:00; Admin Dose 300 MG; Start 04/21/19 at 09:00 Clopidogrel Bisulfate (plaVIX) 75 mg DAILY NGT Last administered on 04/22/19at 08:00; Admin Dose 75 MG; Start 04/21/19 at 09:00 Vancomycin HCl 1.5 gm/Sodium Chloride 250 ml @ 83.333 mls/ hr Q24H IVPB Last administered on 04/21/19at 15:40; Admin Dose 83.333 MLS/HR; Start 04/21/19 at 16:00 Miscellaneous Information (*Rx Drug Level Order Reminder*) VANCOMYCIN TROUGH AT 1500 1500 ONCE XX ; Start 04/23/19 at 15:00; Stop 04/23/19 at 15:01 Assessment/Plan Hospital Course (Demo Recall) PEA Cardiopulmonary arrest History of severe ischemic cardiomyopathy Coronary artery disease with history of coronary artery bypass graft and recent PCI History of ventricular tachycardia status post ICD placement History of hypertension Dyslipidemia Abdominal pain Abdominal hernia Pneumonia Hypoxemic respiratory failure status post intubation Shock: Probably combination of septic as well as cardiogenic Encephalopathy and 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 PLAVIX to be resumed as soon as possible ICD was interrogated on April 21, 2019 and was personally reviewed which showed normal functioning ICD. No ventricular tachycardia noted and no need for therapy was seen. Hypothermia protocol to be completed Electrolyte to be corrected GI prophylaxis. Antibiotic as per internal medicine Continue with levphed drip and will try to titrate off if tolerated Continue with ICU care 35 minutes of critical care time was spent treatment management is critically ill patient excluding any procedures Thank you for this referral. We will continue to follow along with you ROSI MAZARIEGOS MD [facility] ROSI MAZARIEGOS MD Apr 22, 2019 14:49
[2019-04-22] MEDS: VANCOMYCIN HCL 1.5 GM in SOD CHLORIDE 0.9% 250 ML IVPB SCH (15:03)
[2019-04-23] VITALS (35 sets, daily range): BP systolic 87–148; BP diastolic 51–88; PULSE 0–93; RESP 16–31
[2019-04-23] MEDS: PIPER-TAZO 3.375 GM IV (PMX) 100 ML IVPB SCH ×3 (00:01→12:17)
[2019-04-23] MEDS: ARTIFICIAL TEARS 15 ML OPH BOTH EYES SCH ×3 (00:02→11:22)
[2019-04-23] MEDS: OCULAR LUBRICANT 3.5 GM OPH OINT BOTH EYES SCH ×3 (00:02→11:22)
[2019-04-23] MEDS: SOD CHLORIDE 0.9% 1,000 ML IV SCH ×2 (01:43→11:22)
[2019-04-23] MEDS: PROPOFOL 100 ML IV PRN ×2 (05:09→13:00)
[2019-04-23] MEDS: ACETAMINOPHEN 650MG/20.3ML CUP NGT SCH (05:13)
[2019-04-23] MEDS: BUSPIRONE 5 MG TAB PO SCH (05:13)
[2019-04-23] MEDS: ACCU-CHEK XX SCH ×2 (08:30→13:00)
[2019-04-23] MEDS: FAMOTIDINE 20 MG INJ IV SCH (08:39)
[2019-04-23] MEDS: CLOPIDOGREL 75 MG TAB NGT SCH (08:39)
[2019-04-23] MEDS ORDERED: ASPIRIN 81 MG TAB GTB SCH (09:00)
--- NOTE | 2019-04-23 09:29 | CONS ---
Assessment/Plan Assessment/Plan Assessment/Plan (Daily) PEA Cardiopulmonary arrest History of severe ischemic cardiomyopathy Coronary artery disease with history of coronary artery bypass graft and recent PCI History of ventricular tachycardia status post ICD placement History of hypertension Dyslipidemia Abdominal pain Abdominal hernia Pneumonia Hypoxemic respiratory failure status post intubation Shock: Probably combination of septic as well as cardiogenic Encephalopathy and possibly anoxic brain injury RENAL Insufficiency REC : Aspirin PLAVIX to be resumed as soon as possible ICD was interrogated on April 21, 2019 ashowed normal functioning ICD. No ventricular tachycardia noted and no need for therapy was seen. Hypothermia protocol completed Electrolyte to be corrected GI prophylaxis. Antibiotic as per internal medicine Continue with ICU care Consultation Date/Type/Reason Admit Date/Time Apr 20, 2019 at 23:27 Initial Consult Date 04/21/19 Type of Consult Cardiology Requesting Provider: FERMIN WANG Date/Time of Note DATE: 04/23/19 TIME: 09:28 24 HR Interval Summary Free Text/Dictation The patient with no cahnge Exam/Review of Systems Vital Signs Vitals Vital Signs Date Temp Pulse Resp B/P (MAP) Pulse Ox O2 O2 Flow FiO2 Time Delivery Rate 04/23/19 61 20 87/59 (68) 100 06:30 04/23/19 Mechanical 06:00 Ventilator 04/23/19 70 05:45 04/23/19 99.0 04:00 Intake and Output 04/22/19 04/22/19 04/23/19 1515:00 23:00 07:00 IntakeIntake Total 1054.96 ml 924.32 ml 1152.02 ml OutputOutput Total 240 ml 273 ml 420 ml BalanceBalance 814.96 ml 651.32 ml 732.02 ml Labs Result Diagram: 04/23/19 0555 04/23/19 0555 Results 24hrs Laboratory Tests Test 04/22/19 11:44 04/22/19 12:00 04/22/19 12:11 04/22/19 15:54 White Blood 11.0 H Count Red Blood Count 4.33 L Hemoglobin 12.8 L Hematocrit 39.1 L Mean 90.3 Corpuscular Volume Mean 29.6 Corpuscular Hemoglobin Mean 32.7 Corpuscular Hemoglobin Conc ent Red Cell 13.9 Distribution Width Platelet Count 164 # Mean Platelet 10.6 H Volume Immature 0.500 H Granulocytes % Neutrophils % 85.0 H Lymphocytes % 6.7 L Monocytes % 7.4 Eosinophils % 0.2 Basophils % 0.2 Nucleated Red 0.0 Blood Cells % Immature 0.060 H Granulocytes # Neutrophils # 9.4 H Lymphocytes # 0.7 L Monocytes # 0.8 Eosinophils # 0.0 Basophils # 0.0 Nucleated Red 0.0 Blood Cells # Sodium Level 141 Potassium Level 3.8 Chloride Level 113 H Carbon Dioxide 20 L Level Anion Gap 8 Blood Urea 30 H Nitrogen Creatinine 1.06 Est Glomerular > 60 Filtrat Rate mL/min Glucose Level 113 Lactic Acid 2.1 *H Level Calcium Level 7.2 L Phosphorus 4.9 Level Magnesium Level 2.1 Troponin I < 0.012 Blood Gas Blood arterial Specimen Source Arterial Blood 04/22/2019 12:20 Date Drawn :07 PM Arterial Blood 7.443 pH (Temp corrected ) Arterial Blood 25.3 L pCO2 (Temp correct) Arterial Blood 62.0 L pO2 (Temp corrected ) Arterial Blood 17.3 L HCO3 Arterial Blood -5.9 L Base Excess Arterial Blood 93.9 L Oxygen Saturati on Сергей Test N/A Arterial Blood Right Brachial Gas Puncture Site Arterial 0.3 Blood Carboxyhe moglobin Arterial Blood 0.2 Methemoglobin Blood Gas A-a 124.1 H O2 Differential Oxyhemoglobin 93.4 Percent Blood Gas 34.5 Temperature Blood Gas 20.0 Respiration Rate Blood Gas 20 Actual Respiration Rat e Blood Gas VENT - AC Modality FiO2 30.0 Blood Gas Tidal 500.0 Volume Blood Gas Low 5.0 PEEP Setting Blood Gas CW Notified Whom Blood Gas 04/22/2019 12:36 Notified Time :12 PM Bedside Glucose 114 101 Test 04/22/19 17:57 04/22/19 18:00 04/22/19 21:08 04/22/19 21:32 White Blood 11.3 H Count Red Blood Count 4.43 L Hemoglobin 13.1 L Hematocrit 40.2 L Mean 90.7 Corpuscular Volume Mean 29.6 Corpuscular Hemoglobin Mean 32.6 Corpuscular Hemoglobin Conc ent Red Cell 14.2 Distribution Width Platelet Count 141 Mean Platelet 10.1 Volume Immature 0.500 H Granulocytes % Neutrophils % 85.5 H Lymphocytes % 7.3 L Monocytes % 6.1 Eosinophils % 0.3 Basophils % 0.3 Nucleated Red 0.0 Blood Cells % Immature 0.060 H Granulocytes # Neutrophils # 9.6 H Lymphocytes # 0.8 Monocytes # 0.7 Eosinophils # 0.0 Basophils # 0.0 Nucleated Red 0.0 Blood Cells # Sodium Level 141 Potassium Level 4.0 Chloride Level 112 H Carbon Dioxide 21 Level Anion Gap 8 Blood Urea 31 H Nitrogen Creatinine 1.20 Est Glomerular 60 Filtrat Rate mL/min Glucose Level 118 Lactic Acid 1.8 Level Calcium Level 7.3 L Phosphorus 5.0 H Level Magnesium Level 2.2 Troponin I 0.014 Blood Gas Blood arterial Specimen Source Arterial Blood 04/22/2019 5:30: Date Drawn 10 PM Arterial Blood 7.394 pH (Temp corrected ) Arterial Blood 30.2 L pCO2 (Temp correct) Arterial Blood 56.4 L pO2 (Temp corrected ) Arterial Blood 18.2 L HCO3 Arterial Blood -5.7 L Base Excess Arterial Blood 89.3 L Oxygen Saturati on Сергей Test ACCEPTAB Arterial Blood Left Radial Gas Puncture Site Arterial 0.3 Blood Carboxyhe moglobin Arterial Blood 0.3 Methemoglobin Blood Gas A-a 195.1 H O2 Differential Oxyhemoglobin 88.8 L Percent Blood Gas 36.0 Temperature Blood Gas 20.0 Respiration Rate Blood Gas 20 Actual Respiration Rat e Blood Gas VENT - AC Modality FiO2 40.0 Blood Gas Tidal 500.0 Volume Blood Gas High 5.0 PEEP Setting Blood Gas [facility] Notified Whom Blood Gas 04/22/2019 5:50: Notified Time 50 PM Prothrombin 17.6 H Time Prothrombin 1.4 Time Ratio INR 1.44 International Normalized Rati o Activated 31.1 Partial Thrombo plast Time Fibrinogen 544.0 #H Amylase Level 50 Lipase 86 Bedside Glucose 109 Test 04/23/19 00:00 04/23/19 00:22 04/23/19 05:55 04/23/19 06:00 Blood Gas Blood arterial Blood Specimen arterial Source Arterial Blood 04/23/2019 1:40: 04/23/2019 6:25 Date Drawn 12 AM :16 AM Arterial Blood 7.311 L 7.327 L pH (Temp corrected ) Arterial Blood 39.3 36.2 pCO2 (Temp correct) Arterial Blood 69.5 L 94.0 pO2 (Temp corrected ) Arterial Blood 19.5 L 18.5 L HCO3 Arterial Blood -6.4 L -6.7 L Base Excess Arterial Blood 93.0 L 96.6 Oxygen Saturati on Сергей Test N/A ACCEPTAB Arterial Blood Left Radial Right Radial Gas Puncture Site Arterial 0.3 0.3 Blood Carboxyhe moglobin Arterial Blood 0.4 0.5 Methemoglobin Blood Gas A-a 387.9 H 366.2 H O2 Differential Oxyhemoglobin 92.3 L 95.8 Percent Blood Gas 36.7 37.0 Temperature Blood Gas 20.0 20.0 Respiration Rate Blood Gas 21 22 Actual Respiration Rat e Blood Gas VENT - AC VENT - AC Modality FiO2 70.0 70.0 Blood Gas Tidal 500.0 500.0 Volume Blood Gas Low 5.0 5.0 PEEP Setting Blood Gas 17.0 29.0 Inspiratory Pressure Blood Gas S.HKatie BHAKTA RCP Notified Whom Blood Gas 04/23/2019 1:49: 04/23/2019 6:36 Notified Time 39 AM :42 AM White Blood 12.6 H 10.5 Count Red Blood Count 4.26 L 4.31 L Hemoglobin 12.5 L 12.6 L Hematocrit 39.1 L 39.9 L Mean 91.8 92.6 Corpuscular Volume Mean 29.3 29.2 Corpuscular Hemoglobin Mean 32.0 31.6 L Corpuscular Hemoglobin Conc ent Red Cell 14.3 14.3 Distribution Width Platelet Count 151 145 Mean Platelet 10.4 10.6 H Volume Immature 0.600 H 0.500 H Granulocytes % Neutrophils % 87.8 H 92.8 H Lymphocytes % 5.4 L 3.5 L Monocytes % 5.8 2.4 Eosinophils % 0.2 0.6 Basophils % 0.2 0.2 Nucleated Red 0.2 H 0.0 Blood Cells % Immature 0.080 H 0.050 H Granulocytes # Neutrophils # 11.0 H 9.8 H Lymphocytes # 0.7 L 0.4 L Monocytes # 0.7 0.3 Eosinophils # 0.0 0.1 Basophils # 0.0 0.0 Nucleated Red 0.0 0.0 Blood Cells # Sodium Level 140 142 Potassium Level 4.1 3.9 Chloride Level 112 H 113 H Carbon Dioxide 21 22 Level Anion Gap 7 7 Blood Urea 30 H 28 H Nitrogen Creatinine 1.27 H 1.23 Est Glomerular 56 L 58 L Filtrat Rate mL/min Glucose Level 123 115 Lactic Acid 1.6 1.7 Level Calcium Level 7.5 L 7.5 L Phosphorus 4.6 4.2 Level Magnesium Level 2.2 2.3 Troponin I 0.033 0.040 Blood Gas Mean 13 Airway Pressure Test 04/23/19 07:56 Bedside Glucose 90 Medications Medications Current Medications Sodium Chloride 1,000 ml @ 100 mls/hr Q10H IV Last administered on 04/23/19 01:43; Admin Dose 100 MLS/HR; Start 04/20/19 at 23:30 Ondansetron HCl (Zofran Inj) 4 mg Q6H PRN IV NAUSEA AND/OR VOMITING; Start 04/20/19 at 23:30 Albuterol (Ventolin Hfa) 4 puff Q2H RESP THERAPY PRN INH SHORTNESS OF BREATH Last administered on 04/23/19 01:50; Admin Dose 4 PUFF; Start 04/20/19 at 23:30 Ipratropium [place] (Atrovent Hfa) 4 puff Q2H RESP THERAPY PRN INH SHORTNESS OF BREATH; Start 04/20/19 at 23:30 Acetaminophen (Tylenol Liquid) 650 mg Q6H PRN NGT PAIN LEVEL 1-3 OR FEVER; Start 04/20/19 at 23:30 Famotidine (Pepcid Iv) 20 mg Q12 IV Last administered on 04/23/19 08:39; Admin Dose 20 MG; Start 04/20/19 at 23:30 Norepinephrine 16 mg/Dextrose 250 ml @ 0.94 mls/hr TITRATE IV Last administered on 04/21/19 21:24; Admin Dose 1.88 MLS/HR; Start 04/21/19 at 00:00 Acetaminophen (Tylenol Liquid) 650 mg Q8 NGT ; Start 04/21/19 at 06:00 Buspirone HCl (Buspar) 30 mg Q8 PO ; Start 04/21/19 at 06:00 Eye Lubricant (Artificial Tears Oph) 2 drop Q6H BOTH EYES Last administered on 04/23/19 05:10; Admin Dose 2 DROP; Start 04/21/19 at 06:00 Eye Lubricant (Akwa Oint) 1 applic Q6 BOTH EYES Last administered on 04/23/19 05:10; Admin Dose 1 APPLIC; Start 04/21/19 at 06:00 Meperidine HCl (Demerol) 12.5 mg Q2H PRN IV shivering Last administered on 6/13/19at 15:59; Admin Dose 12.5 MG; Start 04/21/19 at 01:00 Propofol 100 ml @ 3 mls/hr TITRATE PRN IV AGITATION Last administered on 04/23/19 05:09; Admin Dose 24 MLS/HR; Start 04/21/19 at 01:30 Fentanyl 100 ml @ 2.5 mls/hr TITRATE PRN IV PAIN Last administered on 04/22/19 04:29; Admin Dose 5 MLS/HR; Start 04/21/19 at 02:00 Vancomycin HCl (Vanco Iv Per Pharmacy) VANCOMYCIN PER PHARMACY PER PROTOCOL XX ; Start 04/21/19 at 02:30 Piperacillin Sod/ Tazobactam Sod 100 ml @ 200 mls/hr Q6 IVPB Last administered on 04/23/19 05:10; Admin Dose 200 MLS/HR; Start 04/21/19 at 06:00 Clopidogrel Bisulfate (plaVIX) 75 mg DAILY NGT Last administered on 04/23/19 08:39; Admin Dose 75 MG; Start 04/21/19 at 09:00 Vancomycin HCl 1.5 gm/Sodium Chloride 250 ml @ 83.333 mls/ hr Q24H IVPB Last administered on 04/22/19 15:03; Admin Dose 83.333 MLS/HR; Start 04/21/19 at 16:00 Miscellaneous Information (*Rx Drug Level Order Reminder*) VANCOMYCIN TROUGH AT 1500 1500 ONCE XX ; Start 04/23/19 at 15:00; Stop 04/23/19 at 15:01 Diagnostic Test (Pha) (Accu-Chek) 1 ea Q4 XX Last administered on 04/23/19 08:30; Admin Dose 1 EA; Start 04/23/19 at 09:00 Aspirin (Aspirin) 81 mg DAILY GTB Last administered on 04/23/19 08:39; Admin Dose 81 MG; Start 04/23/19 at 09:00 ADALBERTO JIMENEZ MD Apr 23, 2019 09:29
--- NOTE | 2019-04-23 11:54 | CONS ---
Assessment/Plan Assessment/Plan Hospital Course (Demo Recall) 1. Nonoliguric acute kidney injury with unknown baseline creatinine. Etiology of acute kidney injury is multifactorial, likely secondary to tubular injury due to ischemic hypoperfusion and shock, cardiac arrest. The patient's renal function has improved and is stable. This patient is in recovery phase of acute tubular necrosis. At this point, continue current treatment plan, supportive care, renally dose all medications. Will monitor renal function closely. 2. Mixed acid base disorder. The patient has a metabolic acidosis and respiratory alkalosis. Will continue to monitor. No need for bicarbonate therapy. 3. Anemia. Monitor hemoglobin and hematocrit levels. 4. Mineral bone disorder, monitor calcium and phosphorus levels. 5. Ventilatory-dependent respiratory failure. Vent settings and ABG was reviewed. Continue to monitor. 6. Status post cardiopulmonary arrest. Etiology is unclear, presumed respiratory versus cardiac. The patient is currently on hypothermic protocol. Will continue. Follow up 2D echo. 7. Shock, presumed cardiogenic. The patient remains on pressor support. Will continue current treatment plan. Wean off pressors if possible. Other poss ibilities of shock include sepsis, possible aspiration. The patient is on antibiotic therapy. We will continue. Follow up cultures. 9. History of coronary artery disease. Continue medical management. 10. Encephalopathy with possible anoxic injury. Continue to monitor. Follow up with neurology. 11. History of valvular heart disease. Consultation Date/Type/Reason Admit Date/Time Apr 20, 2019 at 23:27 Initial Consult Date 04/21/19 Requesting Provider: FERMIN WANG Date/Time of Note DATE: 04/23/19 TIME: 11:53 24 HR Interval Summary Free Text/Dictation pt remains intubated. adequate urine output d/w rn PE gen nad cv rrr pulm coarse bs abd soft, nd, nt +bs ext: no edema Exam/Review of Systems Exam Vitals Vital Signs Date Temp Pulse Resp B/P (MAP) Pulse Ox O2 O2 Flow FiO2 Time Delivery Rate 04/23/19 57 08:00 04/23/19 20 87/59 (68) 100 06:30 04/23/19 Mechanical 06:00 Ventilator 04/23/19 70 05:45 04/23/19 99.0 04:00 Intake and Output 04/22/19 04/22/19 04/23/19 1515:00 23:00 07:00 IntakeIntake Total 1054.96 ml 924.32 ml 1152.02 ml OutputOutput Total 240 ml 273 ml 420 ml BalanceBalance 814.96 ml 651.32 ml 732.02 ml Results Result Diagram: 04/23/19 0555 04/23/19 0555 Results 24hrs Laboratory Tests Test 04/22/19 12:00 04/22/19 12:11 04/22/19 15:54 04/22/19 17:57 Blood Gas Blood arterial Specimen Source Arterial Blood 04/22/2019 12:20 Date Drawn :07 PM Arterial Blood 7.443 pH (Temp corrected ) Arterial Blood 25.3 L pCO2 (Temp correct) Arterial Blood 62.0 L pO2 (Temp corrected ) Arterial Blood 17.3 L HCO3 Arterial Blood -5.9 L Base Excess Arterial Blood 93.9 L Oxygen Saturati on Сергей Test N/A Arterial Blood Right Brachial Gas Puncture Site Arterial 0.3 Blood Carboxyhe moglobin Arterial Blood 0.2 Methemoglobin Blood Gas A-a 124.1 H O2 Differential Oxyhemoglobin 93.4 Percent Blood Gas 34.5 Temperature Blood Gas 20.0 Respiration Rate Blood Gas 20 Actual Respiration Rat e Blood Gas VENT - AC Modality FiO2 30.0 Blood Gas Tidal 500.0 Volume Blood Gas Low 5.0 PEEP Setting Blood Gas CW Notified Whom Blood Gas 04/22/2019 12:36 Notified Time :12 PM Bedside Glucose 114 101 White Blood 11.3 H Count Red Blood Count 4.43 L Hemoglobin 13.1 L Hematocrit 40.2 L Mean 90.7 Corpuscular Volume Mean 29.6 Corpuscular Hemoglobin Mean 32.6 Corpuscular Hemoglobin Conc ent Red Cell 14.2 Distribution Width Platelet Count 141 Mean Platelet 10.1 Volume Immature 0.500 H Granulocytes % Neutrophils % 85.5 H Lymphocytes % 7.3 L Monocytes % 6.1 Eosinophils % 0.3 Basophils % 0.3 Nucleated Red 0.0 Blood Cells % Immature 0.060 H Granulocytes # Neutrophils # 9.6 H Lymphocytes # 0.8 Monocytes # 0.7 Eosinophils # 0.0 Basophils # 0.0 Nucleated Red 0.0 Blood Cells # Sodium Level 141 Potassium Level 4.0 Chloride Level 112 H Carbon Dioxide 21 Level Anion Gap 8 Blood Urea 31 H Nitrogen Creatinine 1.20 Est Glomerular 60 Filtrat Rate mL/min Glucose Level 118 Lactic Acid 1.8 Level Calcium Level 7.3 L Phosphorus 5.0 H Level Magnesium Level 2.2 Troponin I 0.014 Test 04/22/19 18:00 04/22/19 21:08 04/22/19 21:32 04/23/19 00:00 Blood Gas Blood arterial Blood Specimen arterial Source Arterial Blood 04/22/2019 5:30: 04/23/2019 1:40 Date Drawn 10 PM :12 AM Arterial Blood 7.394 7.311 L pH (Temp corrected ) Arterial Blood 30.2 L 39.3 pCO2 (Temp correct) Arterial Blood 56.4 L 69.5 L pO2 (Temp corrected ) Arterial Blood 18.2 L 19.5 L HCO3 Arterial Blood -5.7 L -6.4 L Base Excess Arterial Blood 89.3 L 93.0 L Oxygen Saturati on Сергей Test ACCEPTAB N/A Arterial Blood Left Radial Left Radial Gas Puncture Site Arterial 0.3 0.3 Blood Carboxyhe moglobin Arterial Blood 0.3 0.4 Methemoglobin Blood Gas A-a 195.1 H 387.9 H O2 Differential Oxyhemoglobin 88.8 L 92.3 L Percent Blood Gas 36.0 36.7 Temperature Blood Gas 20.0 20.0 Respiration Rate Blood Gas 20 21 Actual Respiration Rat e Blood Gas VENT - AC VENT - AC Modality FiO2 40.0 70.0 Blood Gas Tidal 500.0 500.0 Volume Blood Gas High 5.0 PEEP Setting Blood Gas M [facility] Notified Whom Blood Gas 04/22/2019 5:50: 04/23/2019 1:49 Notified Time 50 PM :39 AM Prothrombin 17.6 H Time Prothrombin 1.4 Time Ratio INR 1.44 International Normalized Rati o Activated 31.1 Partial Thrombo plast Time Fibrinogen 544.0 #H Amylase Level 50 Lipase 86 Bedside Glucose 109 Blood Gas Low 5.0 PEEP Setting Blood Gas 17.0 Inspiratory Pressure Test 04/23/19 00:22 04/23/19 05:55 04/23/19 06:00 04/23/19 07:56 White Blood 12.6 H 10.5 Count Red Blood Count 4.26 L 4.31 L Hemoglobin 12.5 L 12.6 L Hematocrit 39.1 L 39.9 L Mean 91.8 92.6 Corpuscular Volume Mean 29.3 29.2 Corpuscular Hemoglobin Mean 32.0 31.6 L Corpuscular Hemoglobin Conc ent Red Cell 14.3 14.3 Distribution Width Platelet Count 151 145 Mean Platelet 10.4 10.6 H Volume Immature 0.600 H 0.500 H Granulocytes % Neutrophils % 87.8 H 92.8 H Lymphocytes % 5.4 L 3.5 L Monocytes % 5.8 2.4 Eosinophils % 0.2 0.6 Basophils % 0.2 0.2 Nucleated Red 0.2 H 0.0 Blood Cells % Immature 0.080 H 0.050 H Granulocytes # Neutrophils # 11.0 H 9.8 H Lymphocytes # 0.7 L 0.4 L Monocytes # 0.7 0.3 Eosinophils # 0.0 0.1 Basophils # 0.0 0.0 Nucleated Red 0.0 0.0 Blood Cells # Sodium Level 140 142 Potassium Level 4.1 3.9 Chloride Level 112 H 113 H Carbon Dioxide 21 22 Level Anion Gap 7 7 Blood Urea 30 H 28 H Nitrogen Creatinine 1.27 H 1.23 Est Glomerular 56 L 58 L Filtrat Rate mL/min Glucose Level 123 115 Lactic Acid 1.6 1.7 Level Calcium Level 7.5 L 7.5 L Phosphorus 4.6 4.2 Level Magnesium Level 2.2 2.3 Troponin I 0.033 0.040 Blood Gas Blood arterial Specimen Source Arterial Blood 04/23/2019 6:25: Date Drawn 16 AM Arterial Blood 7.327 L pH (Temp corrected ) Arterial Blood 36.2 pCO2 (Temp correct) Arterial Blood 94.0 pO2 (Temp corrected ) Arterial Blood 18.5 L HCO3 Arterial Blood -6.7 L Base Excess Arterial Blood 96.6 Oxygen Saturati on Сергей Test ACCEPTAB Arterial Blood Right Radial Gas Puncture Site Arterial 0.3 Blood Carboxyhe moglobin Arterial Blood 0.5 Methemoglobin Blood Gas A-a 366.2 H O2 Differential Oxyhemoglobin 95.8 Percent Blood Gas 37.0 Temperature Blood Gas 20.0 Respiration Rate Blood Gas 22 Actual Respiration Rat e Blood Gas VENT - AC Modality FiO2 70.0 Blood Gas Tidal 500.0 Volume Blood Gas Mean 13 Airway Pressure Blood Gas Low 5.0 PEEP Setting Blood Gas 29.0 Inspiratory Pressure Blood Gas CAITLYN BHAKTA Notified Whom Blood Gas 04/23/2019 6:36: Notified Time 42 AM Bedside Glucose 90 Test 04/23/19 09:50 Prothrombin 17.7 H Time Prothrombin 1.4 Time Ratio INR 1.45 International Normalized Rati o Activated 32.4 Partial Thrombo plast Time Fibrinogen 576.0 #H Amylase Level 43 Lipase 81 Medications Medication Current Medications Sodium Chloride 1,000 ml @ 100 mls/hr Q10H IV Last administered on 04/23/19 11:22; Admin Dose 100 MLS/HR; Start 04/20/19 at 23:30 Ondansetron HCl (Zofran Inj) 4 mg Q6H PRN IV NAUSEA AND/OR VOMITING; Start 04/20/19 at 23:30 Albuterol (Ventolin Hfa) 4 puff Q2H RESP THERAPY PRN INH SHORTNESS OF BREATH Last administered on 04/23/19at 01:50; Admin Dose 4 PUFF; Start 04/20/19 at 23:30 Ipratropium [place] (Atrovent Hfa) 4 puff Q2H RESP THERAPY PRN INH SHORTNESS OF BREATH; Start 04/20/19 at 23:30 Acetaminophen (Tylenol Liquid) 650 mg Q6H PRN NGT PAIN LEVEL 1-3 OR FEVER; Start 04/20/19 at 23:30 Famotidine (Pepcid Iv) 20 mg Q12 IV Last administered on 04/23/19at 08:39; Admin Dose 20 MG; Start 04/20/19 at 23:30 Norepinephrine 16 mg/Dextrose 250 ml @ 0.94 mls/hr TITRATE IV Last administered on 04/21/19at 21:24; Admin Dose 1.88 MLS/HR; Start 04/21/19 at 00:00 Acetaminophen (Tylenol Liquid) 650 mg Q8 NGT ; Start 04/21/19 at 06:00 Buspirone HCl (Buspar) 30 mg Q8 PO ; Start 04/21/19 at 06:00 Eye Lubricant (Artificial Tears Oph) 2 drop Q6H BOTH EYES Last administered on 04/23/19 11:22; Admin Dose 2 DROP; Start 04/21/19 at 06:00 Eye Lubricant (Akwa Oint) 1 applic Q6 BOTH EYES Last administered on 04/23/19 11:22; Admin Dose 1 APPLIC; Start 04/21/19 at 06:00 Meperidine HCl (Demerol) 12.5 mg Q2H PRN IV shivering Last administered on 04/21/19 15:59; Admin Dose 12.5 MG; Start 04/21/19 at 01:00 Propofol 100 ml @ 3 mls/hr TITRATE PRN IV AGITATION Last administered on 04/23/19 05:09; Admin Dose 24 MLS/HR; Start 04/21/19 at 01:30 Fentanyl 100 ml @ 2.5 mls/hr TITRATE PRN IV PAIN Last administered on 04/22/19 04:29; Admin Dose 5 MLS/HR; Start 04/21/19 at 02:00 Vancomycin HCl (Vanco Iv Per Pharmacy) VANCOMYCIN PER PHARMACY PER PROTOCOL XX ; Start 04/21/19 at 02:30 Piperacillin Sod/ Tazobactam Sod 100 ml @ 200 mls/hr Q6 IVPB Last administered on 04/23/19 05:10; Admin Dose 200 MLS/HR; Start 04/21/19 at 06:00 Clopidogrel Bisulfate (plaVIX) 75 mg DAILY NGT Last administered on 04/23/19 08:39; Admin Dose 75 MG; Start 04/21/19 at 09:00 Vancomycin HCl 1.5 gm/Sodium Chloride 250 ml @ 83.333 mls/ hr Q24H IVPB Last administered on 04/22/19 15:03; Admin Dose 83.333 MLS/HR; Start 04/21/19 at 16:00 Miscellaneous Information (*Rx Drug Level Order Reminder*) VANCOMYCIN TROUGH AT 1500 1500 ONCE XX ; Start 04/23/19 at 15:00; Stop 04/23/19 at 15:01 Diagnostic Test (Pha) (Accu-Chek) 1 ea Q4 XX Last administered on 04/23/19 08:30; Admin Dose 1 EA; Start 04/23/19 at 09:00 Aspirin (Aspirin) 81 mg DAILY GTB Last administered on 04/23/19 08:39; Admin Dose 81 MG; Start 04/23/19 at 09:00 YOSEPH PERDOMO MD Apr 23, 2019 11:54
--- NOTE | 2019-04-23 12:31 | CONS ---
Consult Date/Type/Reason Admit Date/Time Apr 20, 2019 at 23:27 Initial Consult Date 04/21/19 Type of Consultation: Pulm/CCM Requesting Provider: FERMIN WANG Date/Time of Note DATE: 04/23/19 TIME: 12:23 Subjective Unresponsive on the ventilator. Family at bedside. Objective Vitals Vital Signs Date Temp Pulse Resp B/P (MAP) Pulse Ox O2 O2 Flow FiO2 Time Delivery Rate 04/23/19 57 08:00 04/23/19 20 87/59 (68) 100 06:30 04/23/19 Mechanical 06:00 Ventilator 04/23/19 70 05:45 04/23/19 99.0 04:00 Intake and Output 04/22/19 04/22/19 04/23/19 1515:00 23:00 07:00 IntakeIntake Total 1054.96 ml 924.32 ml 1152.02 ml OutputOutput Total 240 ml 273 ml 420 ml BalanceBalance 814.96 ml 651.32 ml 732.02 ml Exam HEENT: Neck supple; no JVD; no LAD CVS: Irreg S1 and S2, 2/6 JESSICA CHEST: Clear ABD: Soft, NT, + BS EXT: No c/c/e NEURO: Unresponsive on the vent Results/Medications Result Diagram: 04/23/19 0555 04/23/19 0555 Results 24 hrs Laboratory Tests Test 04/22/19 15:54 04/22/19 17:57 04/22/19 18:00 04/22/19 21:08 Bedside Glucose 101 White Blood 11.3 H Count Red Blood Count 4.43 L Hemoglobin 13.1 L Hematocrit 40.2 L Mean 90.7 Corpuscular Volume Mean 29.6 Corpuscular Hemoglobin Mean 32.6 Corpuscular Hemoglobin Conc ent Red Cell 14.2 Distribution Width Platelet Count 141 Mean Platelet 10.1 Volume Immature 0.500 H Granulocytes % Neutrophils % 85.5 H Lymphocytes % 7.3 L Monocytes % 6.1 Eosinophils % 0.3 Basophils % 0.3 Nucleated Red 0.0 Blood Cells % Immature 0.060 H Granulocytes # Neutrophils # 9.6 H Lymphocytes # 0.8 Monocytes # 0.7 Eosinophils # 0.0 Basophils # 0.0 Nucleated Red 0.0 Blood Cells # Sodium Level 141 Potassium Level 4.0 Chloride Level 112 H Carbon Dioxide 21 Level Anion Gap 8 Blood Urea 31 H Nitrogen Creatinine 1.20 Est Glomerular 60 Filtrat Rate mL/min Glucose Level 118 Lactic Acid 1.8 Level Calcium Level 7.3 L Phosphorus 5.0 H Level Magnesium Level 2.2 Troponin I 0.014 Blood Gas Blood Specimen arterial Source Arterial Blood 04/22/2019 5:30 Date Drawn :10 PM Arterial Blood 7.394 pH (Temp corrected ) Arterial Blood 30.2 L pCO2 (Temp correct) Arterial Blood 56.4 L pO2 (Temp corrected ) Arterial Blood 18.2 L HCO3 Arterial Blood -5.7 L Base Excess Arterial Blood 89.3 L Oxygen Saturati on Сергей Test ACCEPTAB Arterial Blood Left Radial Gas Puncture Site Arterial 0.3 Blood Carboxyhe moglobin Arterial Blood 0.3 Methemoglobin Blood Gas A-a 195.1 H O2 Differential Oxyhemoglobin 88.8 L Percent Blood Gas 36.0 Temperature Blood Gas 20.0 Respiration Rate Blood Gas 20 Actual Respiration Rat e Blood Gas VENT - AC Modality FiO2 40.0 Blood Gas Tidal 500.0 Volume Blood Gas High 5.0 PEEP Setting Blood Gas [facility] Notified Whom Blood Gas 04/22/2019 5:50 Notified Time :50 PM Prothrombin 17.6 H Time Prothrombin 1.4 Time Ratio INR 1.44 International Normalized Rati o Activated 31.1 Partial Thrombo plast Time Fibrinogen 544.0 #H Amylase Level 50 Lipase 86 Test 04/22/19 21:32 04/23/19 00:00 04/23/19 00:22 04/23/19 05:55 Bedside Glucose 109 Blood Gas Blood arterial Specimen Source Arterial Blood 04/23/2019 1:40: Date Drawn 12 AM Arterial Blood 7.311 L pH (Temp corrected ) Arterial Blood 39.3 pCO2 (Temp correct) Arterial Blood 69.5 L pO2 (Temp corrected ) Arterial Blood 19.5 L HCO3 Arterial Blood -6.4 L Base Excess Arterial Blood 93.0 L Oxygen Saturati on Сергей Test N/A Arterial Blood Left Radial Gas Puncture Site Arterial 0.3 Blood Carboxyhe moglobin Arterial Blood 0.4 Methemoglobin Blood Gas A-a 387.9 H O2 Differential Oxyhemoglobin 92.3 L Percent Blood Gas 36.7 Temperature Blood Gas 20.0 Respiration Rate Blood Gas 21 Actual Respiration Rat e Blood Gas VENT - AC Modality FiO2 70.0 Blood Gas Tidal 500.0 Volume Blood Gas Low 5.0 PEEP Setting Blood Gas 17.0 Inspiratory Pressure Blood Gas [facility] Notified Whom Blood Gas 04/23/2019 1:49: Notified Time 39 AM White Blood 12.6 H 10.5 Count Red Blood Count 4.26 L 4.31 L Hemoglobin 12.5 L 12.6 L Hematocrit 39.1 L 39.9 L Mean 91.8 92.6 Corpuscular Volume Mean 29.3 29.2 Corpuscular Hemoglobin Mean 32.0 31.6 L Corpuscular Hemoglobin Conc ent Red Cell 14.3 14.3 Distribution Width Platelet Count 151 145 Mean Platelet 10.4 10.6 H Volume Immature 0.600 H 0.500 H Granulocytes % Neutrophils % 87.8 H 92.8 H Lymphocytes % 5.4 L 3.5 L Monocytes % 5.8 2.4 Eosinophils % 0.2 0.6 Basophils % 0.2 0.2 Nucleated Red 0.2 H 0.0 Blood Cells % Immature 0.080 H 0.050 H Granulocytes # Neutrophils # 11.0 H 9.8 H Lymphocytes # 0.7 L 0.4 L Monocytes # 0.7 0.3 Eosinophils # 0.0 0.1 Basophils # 0.0 0.0 Nucleated Red 0.0 0.0 Blood Cells # Sodium Level 140 142 Potassium Level 4.1 3.9 Chloride Level 112 H 113 H Carbon Dioxide 21 22 Level Anion Gap 7 7 Blood Urea 30 H 28 H Nitrogen Creatinine 1.27 H 1.23 Est Glomerular 56 L 58 L Filtrat Rate mL/min Glucose Level 123 115 Lactic Acid 1.6 1.7 Level Calcium Level 7.5 L 7.5 L Phosphorus 4.6 4.2 Level Magnesium Level 2.2 2.3 Troponin I 0.033 0.040 Test 04/23/19 06:00 04/23/19 07:56 04/23/19 09:50 Blood Gas Blood arterial Specimen Source Arterial Blood 04/23/2019 6:25: Date Drawn 16 AM Arterial Blood 7.327 L pH (Temp corrected ) Arterial Blood 36.2 pCO2 (Temp correct) Arterial Blood 94.0 pO2 (Temp corrected ) Arterial Blood 18.5 L HCO3 Arterial Blood -6.7 L Base Excess Arterial Blood 96.6 Oxygen Saturati on Сергей Test ACCEPTAB Arterial Blood Right Radial Gas Puncture Site Arterial 0.3 Blood Carboxyhe moglobin Arterial Blood 0.5 Methemoglobin Blood Gas A-a 366.2 H O2 Differential Oxyhemoglobin 95.8 Percent Blood Gas 37.0 Temperature Blood Gas 20.0 Respiration Rate Blood Gas 22 Actual Respiration Rat e Blood Gas VENT - AC Modality FiO2 70.0 Blood Gas Tidal 500.0 Volume Blood Gas Mean 13 Airway Pressure Blood Gas Low 5.0 PEEP Setting Blood Gas 29.0 Inspiratory Pressure Blood Gas CAITLYN BHAKTA Notified Whom Blood Gas 04/23/2019 6:36: Notified Time 42 AM Bedside Glucose 90 Prothrombin 17.7 H Time Prothrombin 1.4 Time Ratio INR 1.45 International Normalized Rati o Activated 32.4 Partial Thrombo plast Time Fibrinogen 576.0 #H Amylase Level 43 Lipase 81 Home Meds Reported Medications Atorvastatin* (Atorvastatin*) 40 Mg Tablet, 40 MG PO QHS, #30 TAB 04/21/19 Clopidogrel Bisulfate (Clopidogrel) 75 Mg Tablet, 75 MG PO DAILY, #30 TAB 04/21/19 Amiodarone Hcl* (Amiodarone Hcl*) 200 Mg Tablet, 200 MG PO BID, #60 TAB 04/21/19 Aspirin (Low Dose Aspirin) 81 Mg Tablet.dr, 81 MG PO DAILY, #30 TAB 03/21/19 Nitroglycerin* (Nitrostat*) 0.4 Mg Tab.subl, 0.4 MG SL Q5MIN PRN for CHEST PAIN, BOTTLE 03/21/19 Lisinopril* (Lisinopril*) 5 Mg Tablet, 5 MG PO BID, #30 TAB 03/21/19 Cyanocobalamin* (Vitamin B12*) 500 Mcg Tab, 2000 MCG PO DAILY, TAB 03/21/19 Bisoprolol Fumarate* (Zebeta*) 5 Mg Tablet, 5 MG PO BID, TAB 03/21/19 Discontinued Reported Medications Simvastatin* (Zocor*) 40 Mg Tablet, 40 MG PO QHS, #30 TAB 03/21/19 Medications Current Medications Ondansetron HCl (Zofran Inj) 4 mg Q6H PRN IV NAUSEA AND/OR VOMITING; Start 04/20/19 at 23:30 Albuterol (Ventolin Hfa) 4 puff Q2H RESP THERAPY PRN INH SHORTNESS OF BREATH Last administered on 04/23/19at 01:50; Admin Dose 4 PUFF; Start 04/20/19 at 23:30 Ipratropium [place] (Atrovent Hfa) 4 puff Q2H RESP THERAPY PRN INH SHORTNESS OF BREATH; Start 04/20/19 at 23:30 Acetaminophen (Tylenol Liquid) 650 mg Q6H PRN NGT PAIN LEVEL 1-3 OR FEVER; Start 04/20/19 at 23:30 Famotidine (Pepcid Iv) 20 mg Q12 IV Last administered on 04/23/19 08:39; Admin Dose 20 MG; Start 04/20/19 at 23:30 Norepinephrine 16 mg/Dextrose 250 ml @ 0.94 mls/hr TITRATE IV Last administered on 04/21/19 21:24; Admin Dose 1.88 MLS/HR; Start 04/21/19 at 00:00 Acetaminophen (Tylenol Liquid) 650 mg Q8 NGT ; Start 04/21/19 at 06:00 Buspirone HCl (Buspar) 30 mg Q8 PO ; Start 04/21/19 at 06:00 Eye Lubricant (Artificial Tears Oph) 2 drop Q6H BOTH EYES Last administered on 04/23/19 11:22; Admin Dose 2 DROP; Start 04/21/19 at 06:00 Eye Lubricant (Akwa Oint) 1 applic Q6 BOTH EYES Last administered on 04/23/19 11:22; Admin Dose 1 APPLIC; Start 04/21/19 at 06:00 Meperidine HCl (Demerol) 12.5 mg Q2H PRN IV shivering Last administered on 04/21/19 15:59; Admin Dose 12.5 MG; Start 04/21/19 at 01:00 Propofol 100 ml @ 3 mls/hr TITRATE PRN IV AGITATION Last administered on 04/23/19 05:09; Admin Dose 24 MLS/HR; Start 04/21/19 at 01:30 Fentanyl 100 ml @ 2.5 mls/hr TITRATE PRN IV PAIN Last administered on 04/22/19 04:29; Admin Dose 5 MLS/HR; Start 04/21/19 at 02:00 Vancomycin HCl (Vanco Iv Per Pharmacy) VANCOMYCIN PER PHARMACY PER PROTOCOL XX ; Start 04/21/19 at 02:30 Piperacillin Sod/ Tazobactam Sod 100 ml @ 200 mls/hr Q6 IVPB Last administered on 04/23/19 12:17; Admin Dose 200 MLS/HR; Start 04/21/19 at 06:00 Clopidogrel Bisulfate (plaVIX) 75 mg DAILY NGT Last administered on 04/23/19 08:39; Admin Dose 75 MG; Start 04/21/19 at 09:00 Vancomycin HCl 1.5 gm/Sodium Chloride 250 ml @ 83.333 mls/ hr Q24H IVPB Last administered on 04/22/19 15:03; Admin Dose 83.333 MLS/HR; Start 04/21/19 at 16:00 Miscellaneous Information (*Rx Drug Level Order Reminder*) VANCOMYCIN TROUGH AT 1500 1500 ONCE XX ; Start 04/23/19 at 15:00; Stop 04/23/19 at 15:01 Diagnostic Test (Pha) (Accu-Chek) 1 ea Q4 XX Last administered on 04/23/19 08:30; Admin Dose 1 EA; Start 04/23/19 at 09:00 Aspirin (Aspirin) 81 mg DAILY GTB Last administered on 04/23/19 08:39; Admin Dose 81 MG; Start 04/23/19 at 09:00 Assessment/Plan Assessment/Plan (Daily) I had a long discussion with the family ( and daughter). They expressed that Mr. Bruce's quality of life prior to this was extremely poor and that he would not have wanted to be maintained alive on life support. I explained to them that is a bit early for me to determine the severity and reversibility of his anoxic brain injury, but that I would respect their wishes to proceed to extubation and full comfort measures. PLAN: --Morphine gtt; dying patient protocol. --Extubate to NC --Ativan prn --Family at bedside --DNR/DNI 40 cc time RED VALDES MD Apr 23, 2019 12:31
[2019-04-23] MEDS: FENTAnyl (DRIP) 1000 mcg/100mL 100 ML IV PRN (12:59)
[2019-04-23] MEDS ORDERED: morphine (DRIP) 100 MG/100 ML 100 ML IV SCH (14:00)
[2019-04-23] MEDS: LORAZEPAM 2 MG INJ IV PRN ×2 (16:45→18:22)
[2019-04-23] MEDS ORDERED: GLYCOPYRROLATE 0.4 MG INJ IV ONE (17:00)
[2019-04-23] MEDS ORDERED: ATROPINE 1% 5 ML OPH SL PRN (18:00)
--- NOTE | 2019-04-23 19:14 | EN ---
Date/Time of Note Date/Time of Note DATE: 04/23/19 TIME: 19:11 Event Note Medicine Medicine Event Note Patient found with no pulse on telemonitor. Patient was evaluated. Patient found with no chest rise, pulses absent, no cardiac sounds noted. Pupils fixed and dilated. No response to sternal rub or pain. Patient was pronounced at 1907. Family at bedside. KASSANDRA MURILLO MD Apr 23, 2019 19:14
--- NOTE | 2019-04-24 08:51 | RADRPT ---
Echocardiogram Report Patient Name: WOODY JOHNSONatient ID: [id number] : 1950 (68y 5m)Study Date: 04/21/2019 9:57:55 AM Gender: MAccession #: [id number] Tech: Adarsh Morales [facility] Location: [address] Ref.Physician: FERMIN WANG Height(Cm): BSA: Weight(Kg): Quality: AdequateOrder Physician: FERMIN WANG Account #: Procedures: Echocardiographic Report: Transthoracic echocardiogram with complete 2D, M-Mode, and doppler examination. Indications: Cardiac Arrest. Measurements: 2D/M Mode Doppler Measurement Value Normal Range Measurement Value Normal Range LVIDd 2D 5.7 [ 4.2 - 5.8 ] cm LVOT Peak Nuno 0.5 [ 70.0 - 110.0 ] cm/sec LVIDs 2D 4.9 [ 2.5 - 4.0 ] cm LVOT Peak PG 1.0 [ 2.0 - 6.0 ] mmHg LVPWd 2D 0.9 [ 0.6 - 1.0 ] cm MV E Peak Nuno 0.5 [ 60.0 - 130.0 ] cm/sec IVSd 2D 1.3 [ 0.6 - 1.0 ] cm MV A Peak Nuno 0.8 [ 100.0 - 120.0 ] cm/sec AoR Diam 2D 2.8 [ 2.6 - 3.4 ] cm MV E/A 0.7 [ 0.8 - 1.5 ] ratio EDV 2D 159.0 [ 62.0 - 150.0 ] ml MV Decel Time 190 [ 104 - 258 ] msec ESV 2D 115.0 [ 21.0 - 61.0 ] ml Lat E` Nuno 0.0 [ 10.0 - 15.0 ] cm/sec EF 2D 27.7 [ 52.0 - 72.0 ] percent Lateral E/E` 12.6 [ 1.0 - 2.0 ] ratio LA Dimen 2D 4.9 [ 3.0 - 4.0 ] cm MV E/A 0.7 [ 0.8 - 1.5 ] ratio TR Peak Nuno 3.2 [ 100.0 - 280.0 ] cm/sec TR Peak PG 41.0 mmHg RVSP 51.0 [ 10.0 - 36.0 ] mmHg Findings: Left Ventricle: Sigmoid septum. Mild enlargement of left ventricle cavity. Severe global left ventricular systolic dysfunction. Ejection fraction is visually estimated at 20 %. Tissue Doppler/Mitral Doppler indices are consistent with impaired relaxation (Stage I diastolic dysfunction). Right Ventricle: Normal right ventricular systolic function. Moderate enlargement of right ventricle. Linear artifact in right ventricle suggestive of catheter, pacer lead, or ICD lead. Left Atrium: There is moderate enlargement of left atrium. Right Atrium: There is moderate enlargement of right atrium. Mitral Valve: Mild mitral leaflet calcification. Mild mitral annular calcification. Mild mitral valve regurgitation. Aortic Valve: No significant aortic stenosis or insufficiency. Aortic cusps appear mildly calcified. Tricuspid Valve: Normal appearance of the tricuspid valve. The estimated Peak RVSP is 51 mmHg. There is mild to moderate tricuspid regurgitation. Pericardium: Normal pericardium with no significant pericardial effusion. Left pleural effusion seen. Aorta: Normal aortic root. IVC: Dilated IVC without respiratory collapse consistent with elevated right atrial pressure. Conclusions: Sigmoid septum. Mild enlargement of left ventricle cavity. Severe global left ventricular systolic dysfunction. Ejection fraction is visually estimated at 20 %. Tissue Doppler/Mitral Doppler indices are consistent with impaired relaxation (Stage I diastolic dysfunction). There is moderate enlargement of left atrium. There is moderate enlargement of right atrium. Mild mitral leaflet calcification. Mild mitral annular calcification. Mild mitral valve regurgitation. No significant aortic stenosis or insufficiency. Aortic cusps appear mildly calcified. Normal appearance of the tricuspid valve. The estimated Peak RVSP is 51 mmHg. There is mild to moderate tricuspid regurgitation. Electronically Signed By: Kulwinder Rider 2019-04-22 14:32:27 PDT
--- NOTE | 2019-04-24 17:34 | DES ---
Date/Time of Note Date/Time of Note DATE: 04/24/19 TIME: 17:33 Discharge/ Summary Admission/Discharge Info Admit Date/Time Apr 20, 2019 at 23:27 Final Diagnosis Anoxic brain injury Preliminary Cause of CHF Hospital Course This is a 68-year-old male being admitted to the ICU floor for: Assessment: PEA Cardiopulmonary arrest, etiology possibly arrhythmia Acute ventilatory dependent respiratory failure Shock, cardiogenic and possibly septic Transaminitis likely secondary to passive congestion, shock Suspect community acquired pneumonia vs aspiration pneumonia Lactic acidosis Sinus bradycardia Acute kidney injury Suspect anoxic injury Gallbladder wall thickening History of coronary artery disease status post CABG and stenting History of VT storm History of AICD placement with recent ICD generator change History of ischemic cardiomyopathy with EF of 30% history of dyslipidemia History of hypertension History of non-STEMI Plan: Romie presented after cardiac arrest and ROSC. He was treated with hypothermia protocol in the ICU. Following this discussion was held with vp site and family elected for compassionate extubation. He was extubated and given morphine, shortly thereafter and pronounced by ICU staff INGA MCCARTNEY MD Apr 24, 2019 17:34
--- NOTE | 2019-04-26 14:53 | RADRPT ---
Vent Rate: 50 bpm RR Interval: 1202 msec HI Interval: 183 msec QRS Duration: 129 msec QT Interval: 634 msec QTC Interval: 578 msec P-R-T [place]: [id number] - -11 - 92 degrees Atrial-paced rhythm Left bundle branch block...QRSd>120, broad/notched R Prolonged QT interval...QTc >500mS Electronically Signed By: Leroy Awan
== END 2019-04-23 19:07 | disposition expired | DRG 871 ==
LOC: E/R 21:15 → ICU 23:27
PROVIDERS: ADMIT Family Medicine; ATTEND Internal Medicine
PROC: 06HM33Z Insertion of Infusion Device into Right Femoral Vein, Percutaneous Approach (ICD-10-PCS; principal; 2019-04-20)
PROC: 0BH17EZ Insertion of Endotracheal Airway into Trachea, Via Natural or Artificial Opening (ICD-10-PCS; 2019-04-20)
PROC: 5A1945Z Respiratory Ventilation, 24-96 Consecutive Hours (ICD-10-PCS; 2019-04-20)
DX: A41.9 Sepsis, unspecified organism (principal); J96.01 Acute respiratory failure with hypoxia; R65.21 Severe sepsis with septic shock; J18.9 Pneumonia, unspecified organism; J69.0 Pneumonitis due to inhalation of food and vomit; N17.0 Acute kidney failure with tubular necrosis; G93.1 Anoxic brain damage, not elsewhere classified; E87.2 Acidosis; I50.9 Heart failure, unspecified; R57.0 Cardiogenic shock; Z95.0 Presence of cardiac pacemaker; Z95.5 Presence of coronary angioplasty implant and graft; E87.5 Hyperkalemia; I25.2 Old myocardial infarction; Z95.1 Presence of aortocoronary bypass graft; K72.90 Hepatic failure, unspecified without coma; Z87.891 Personal history of nicotine dependence; I46.9 Cardiac arrest, cause unspecified
CPT/HCPCS: 31500; 36415; 36600; 70450; 71045; 74176; 76700; 76937; 80048; 80053; 80061; 81001; 81003; 82043; 82150; 82550; 82553; 82803; 82962; 83036; 83605; 83690; 83735; 84100; 84145; 84155; 84300; 84484; 85025; 85384; 85610; 85730; 86704; 86709; 86803; 87070; 87081; 87086; 87340; 89220; 93005; 93306; 94002; 94003; 94640; 94770; 96365; 96368; 96375; C1751; J1170; J1644; J2060; J2175; J2270; J2543; J3010; J3370; J7030; J7040; J7050; J7070